=== PATIENT | male | born 1935 | race Caucasian/White ===

== ENCOUNTER 2016-09-27 08:35 | Outpatient (CLI) | payer MEDICARE | END 2016-09-27 08:36 | disposition home or self-care (01) | DX: D64.9 Anemia, unspecified (principal) ==

== ENCOUNTER 2016-12-31 10:35 | Outpatient (CLI) | payer MEDICARE ==
[2016-12-31 11:12] LABS: BASOPHILS # (AUTO) 0.1 10^3/uL (0.0-0.1); BASOPHILS % (AUTO) 1.2 %; EOSINOPHILS # (AUTO) 0.4 10^3/uL (0.0-0.7); EOSINOPHILS % (AUTO) 6.9 %; HCT - HEMATOCRIT 39.1 % (42.0-52.0); HGB - HEMOGLOBIN 13.2 g/dL (14.0-18.0); LYMPHOCYTES # (AUTO) 1.7 10^3/uL (1.5-3.5); LYMPHOCYTES % (AUTO) 25.7 %; MEAN CORPUSCULAR HEMOGLOBIN 30.2 pg (27.0-31.0); MEAN CORPUSCULAR HGB CONC 33.8 g/dL (32.0-36.0); MEAN CORPUSCULAR VOLUME 89.1 fL (80.0-94.0); MEAN PLATELET VOLUME 7.3 fL (7.4-11.4); MONOCYTES # (AUTO) 0.8 10^3/uL (0.0-1.0); MONOCYTES % (AUTO) 12.6 %; NEUTROPHILS # (AUTO) 3.4 10^3/uL (1.5-6.6); NEUTROPHILS % (AUTO) 53.6 %; RED BLOOD COUNT 4.39 10^6/uL (4.70-6.10); UNCORRECTED WHITE BLOOD COUNT 6.4 x10^3/uL; WHITE BLOOD COUNT 6.4 x10^3/uL (4.8-10.8)
[2016-12-31 11:50] LABS: ALBUMIN/GLOBULIN RATIO 1.3 (1.0-2.2); BILIRUBIN,TOTAL 0.8 mg/dL (0.2-1.0); BUN - BLOOD UREA NITROGEN 22 mg/dL (6-20); CALCIUM 9.8 mg/dL (8.5-10.3); CARBON DIOXIDE - CO2 27 mmol/L (21-32); CHLORIDE 101 mmol/L (101-111); CHOL/HDL RATIO 3.2 (<5.0); CHOLESTEROL 223 mg/dL; CREATININE 0.9 mg/dL (0.6-1.2); GFR - MDRD 81 (>89); GLUCOSE 115 mg/dL (70-100); HDL CHOLESTEROL 70 mg/dL; LDL/HDL RATIO 1.9 (<3.6); POTASSIUM 4.2 mmol/L (3.5-5.0); SODIUM 135 mmol/L (135-145); TRIGLYCERIDES 108 mg/dL; VLDL CHOLESTEROL 22 mg/dL
== END 2016-12-31 10:36 | disposition home or self-care (01) ==
LOC: LAB 10:35
PROVIDERS: ATTEND Internal Medicine
DX: J45.901 Unspecified asthma with (acute) exacerbation (principal)
CPT/HCPCS: 36415; 80053; 80061; 85025

== ENCOUNTER 2017-02-13 09:34 | Outpatient (CLI) | payer MEDICARE ==
[2017-02-13 09:58] LABS: IMMATURE RETIC FRACTION 0.32; RED BLOOD COUNT 4.58 10^6/uL (4.70-6.10)
[2017-02-13 10:10] LABS: HEMOGLOBIN A1C 0.61 g/dL
[2017-02-13 10:54] LABS: FERRITIN 120.2 ng/mL (23.9-336.2)
== END 2017-02-13 09:35 | disposition home or self-care (01) ==
LOC: LAB 09:34
PROVIDERS: ATTEND Internal Medicine
DX: R73.09 Other abnormal glucose (principal)
CPT/HCPCS: 36415; 82607; 82728; 83010; 83036; 85044; 86880

== ENCOUNTER 2017-07-04 14:46 | Outpatient (CLI) | payer MEDICARE ==
[2017-07-04 15:30] LABS: BASOPHILS # (AUTO) 0.1 10^3/uL (0.0-0.1); BASOPHILS % (AUTO) 1.5 %; EOSINOPHILS # (AUTO) 0.3 10^3/uL (0.0-0.7); EOSINOPHILS % (AUTO) 3.4 %; HCT - HEMATOCRIT 39.8 % (42.0-52.0); HGB - HEMOGLOBIN 13.5 g/dL (14.0-18.0); LYMPHOCYTES # (AUTO) 1.7 10^3/uL (1.5-3.5); LYMPHOCYTES % (AUTO) 22.3 %; MEAN CORPUSCULAR HEMOGLOBIN 30.3 pg (27.0-31.0); MEAN CORPUSCULAR HGB CONC 33.8 g/dL (32.0-36.0); MEAN CORPUSCULAR VOLUME 89.7 fL (80.0-94.0); MEAN PLATELET VOLUME 7.5 fL (7.4-11.4); MONOCYTES # (AUTO) 0.8 10^3/uL (0.0-1.0); NEUTROPHILS # (AUTO) 4.8 10^3/uL (1.5-6.6); NEUTROPHILS % (AUTO) 61.8 %; RED BLOOD COUNT 4.44 10^6/uL (4.70-6.10); RED CELL DISTRIBUTION WIDTH 13.2 % (12.0-15.0); UNCORRECTED WHITE BLOOD COUNT 7.7 x10^3/uL; WHITE BLOOD COUNT 7.7 x10^3/uL (4.8-10.8)
== END 2017-07-04 14:47 | disposition home or self-care (01) ==
LOC: LAB 14:46
PROVIDERS: ATTEND Internal Medicine
DX: I10 Essential (primary) hypertension (principal)
CPT/HCPCS: 36415; 85025

== ENCOUNTER 2018-01-21 08:00 | Outpatient (CLI) | payer MEDICARE ==
[2018-01-21 13:07] LABS: BASOPHILS # (AUTO) 0.1 10^3/uL (0.0-0.1); EOSINOPHILS # (AUTO) 0.4 10^3/uL (0.0-0.7); EOSINOPHILS % (AUTO) 5.9 %; HGB - HEMOGLOBIN 13.8 g/dL (14.0-18.0); LYMPHOCYTES % (AUTO) 28.5 %; MEAN CORPUSCULAR HGB CONC 33.1 g/dL (32.0-36.0); MEAN CORPUSCULAR VOLUME 90.7 fL (80.0-94.0); MEAN PLATELET VOLUME 7.6 fL (7.4-11.4); MONOCYTES # (AUTO) 0.9 10^3/uL (0.0-1.0); MONOCYTES % (AUTO) 13.4 %; NEUTROPHILS # (AUTO) 3.6 10^3/uL (1.5-6.6); NEUTROPHILS % (AUTO) 51.2 %; PLT - PLATELET COUNT 245 10^3/uL (130-450); RED CELL DISTRIBUTION WIDTH 13.1 % (12.0-15.0)
[2018-01-21 13:24] LABS: ALBUMIN 3.9 g/dL (3.2-5.5); ALBUMIN/GLOBULIN RATIO 1.1 (1.0-2.2); ALKALINE PHOSPHATASE 46 IU/L (42-121); ALT ALANINE AMINOTRANSFERASE 33 IU/L (10-60); AST ASPARTATE AMINOTRANSFERASE 36 IU/L (10-42); BILIRUBIN,TOTAL 0.7 mg/dL (0.2-1.0); BUN - BLOOD UREA NITROGEN 19 mg/dL (6-20); CALCIUM 9.6 mg/dL (8.5-10.3); CARBON DIOXIDE - CO2 25 mmol/L (21-32); CHLORIDE 97 mmol/L (101-111); CHOL/HDL RATIO 2.8 (<5.0); CHOLESTEROL 213 mg/dL; CREATININE 0.9 mg/dL (0.6-1.2); GFR - MDRD 81 (>89); GLUCOSE 118 mg/dL (70-100); HDL CHOLESTEROL 75 mg/dL; LDL CHOLESTEROL,CALCULATED 115 mg/dL; LDL/HDL RATIO 1.5 (<3.6); SODIUM 131 mmol/L (135-145); TOTAL PROTEIN 7.3 g/dL (6.7-8.2); VLDL CHOLESTEROL 23 mg/dL
[2018-01-21 13:55] LABS: HB2 TOTAL 15.6 g/dL; HEMOGLOBIN A1C 0.65 g/dL
== END 2018-01-21 08:01 | disposition home or self-care (01) ==
LOC: LAB.R 08:00
PROVIDERS: ATTEND Internal Medicine
DX: E88.81 Metabolic syndrome and other insulin resistance (principal); E78.5 Hyperlipidemia, unspecified; I10 Essential (primary) hypertension; Z79.899 Other long term (current) drug therapy
CPT/HCPCS: 80053; 80061; 83036; 83721; 84443; 85025

== ENCOUNTER 2018-01-21 08:37 | Outpatient (CLI) | payer MEDICARE | END 2018-01-21 08:38 | disposition home or self-care (01) | LOC: LAB 08:37 | PROVIDERS: ATTEND Internal Medicine | DX: Z53.9 Procedure and treatment not carried out, unspecified reason (principal) | CPT/HCPCS: 36415; 80053; 80061; 83036; 83721; 84443; 85025 ==

== ENCOUNTER 2018-02-15 11:12 | Outpatient (CLI) | payer MEDICARE | END 2018-02-15 11:13 | disposition critical access hospital (66) | LOC: EMS 11:12 | PROVIDERS: ATTEND Surgery | DX: R55 Syncope and collapse (principal) | CPT/HCPCS: A0425; A0427 ==

== ENCOUNTER 2018-02-15 11:19 | Emergency (ER) | payer MEDICARE ==
--- NOTE | 2018-02-15 11:24 | ED Physician Documentation ---
PD HPI SYNCOPE - Stated complaint Stated Complaint: LIGHTHEADED - Chief complaint Chief Complaint: Abd Pain - History obtained from History obtained from: Patient - History of Present Illness Witnessed: Witnessed Timing - onset: How many minutes ago (30) Duration: Minutes Preceding symptoms: Diaphoresis, Abdominal pain (he was at [facility], felt okay this morning. was eating snack after the service, and felt onset of some upper abd cramping/pain, felt nauseated, lgihtheaded, and then was pale and sweaty and nearly fainted. Sat downa nd recovered in a minute or so. Seemed okay enroute to ER. Feeling okay here except mild aching feeling in mid abd ("like a hunger pain").), Light headed, Generalized weakness. No: Headache, Palpitations , Dyspnea Associated symptoms: Nausea / vomiting, Abdominal pain. No: Headache, Chest pain, Palpitations, Dyspnea Contributing factors: Just stood up. 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 denies: Vomiting, Diarrhea : denies: Dysuria, Frequency Skin: denies: Rash, Lesions Musculoskeletal: denies: Neck pain, Back pain Neurologic: reports: Generalized weakness, Near syncope. denies: Focal weakness , Numbness, Syncope, Altered mental status, Headache, Head injury, LOC Endocrine: denies: Weight loss, Easy bruising / bleeding Immunocompromised: denies: Immunocompromised PD PAST MEDICAL HISTORY - Past Medical History Cardiovascular: None Respiratory: Asthma GI: GERD, GI bleed : Nocturia HEENT: None Musculoskeletal: Chronic back pain Derm: None - Past Surgical History General: Cholecystectomy, Appendectomy HEENT: Cataracts, Tonsil/Adenoidectomy - Present Medications Home Medications: Ambulatory Orders Medication Instructions Recorded Confirmed Albuterol Sulfate [Proair Hfa] 8.5 gm IH Q4H PRN 10/23/15 10/23/15 Fluticasone [Flonase] 1 applic PO DAILY 10/23/15 10/23/15 Fluticasone/Salmeterol [Advair 1 each IH BID 10/23/15 10/23/15 250-50 Diskus] Hydrochlorothiazide 25 mg PO DAILY 10/23/15 10/23/15 Losartan [Cozaar] 50 mg PO DAILY 10/23/15 10/23/15 - Allergies Allergies/Adverse Reactions: Allergies Allergy/AdvReac Type Severity Reaction Status Date / Time ciprofloxacin Allergy Unknown Verified 10/23/15 23:46 metronidazole [From Flagyl] Allergy Unknown Verified 02/15/18 11:23 - Social History Does the pt smoke?: No Smoking Status: Never smoker Does the pt drink ETOH?: No Does the pt have substance abuse?: No - Immunizations Immunizations are current?: Yes - POLST Patient has POLST: No PD ED PE NORMAL - Vitals Vital signs reviewed: Yes - General General: Alert and oriented X 3, No acute distress, Well developed/nourished - HEENT HEENT: Pharynx benign - Neck Neck: Supple, no meningeal sign, No adenopathy, No JVD - Cardiac Cardiac: RRR, No murmur - Respiratory Respiratory: Clear bilaterally - Abdomen Abdomen: Soft, Non distended, No organomegaly, Other (mild tenderness mid abd without guarding nor rebound. no hernia felt. ). No: Normal bowel sounds ( increased) - Male Male : Deferred - Rectal Rectal: Deferred - Back Back: No CVA TTP - Derm Derm: Normal color, Warm and dry - Extremities Extremities: No deformity, No tenderness to palpate, Normal ROM s pain, No edema , No calf tenderness / cord - Neuro Neuro: Alert and oriented X 3, stay cutter 2-12 intact, No motor deficit, No sensory deficit, Normal speech Eye Opening: Spontaneous Motor: Obeys Commands Verbal: Oriented GCS Score: 15 Results - Vitals Vitals: Vital Signs - 24 hr 02/15/18 02/15/18 02/15/18 11:20 13:27 13:54 Temperature 36.4 C L Heart Rate 55 L 46 L 56 L Respiratory 18 20 20 Rate Blood Pressure 161/84 H 185/77 H 190/87 H O2 Saturation 97 100 97 Oxygen O2 Source Room air - EKG (time done) 11:23 Rate: Rate (enter#) (50) Rhythm: Sinus bradycardia [place]: Normal Intervals: Normal MA QRS: Normal Ischemia: Normal ST segments. No: ST elevation c/w ischemia, ST depression Compare to prior EKG: Old EKG unavailable - Labs Labs: Laboratory Tests 02/15/18 02/15/18 02/15/18 11:36 11:36 11:36 WBC 6.5 RBC 4.31 L Hgb 13.0 L Hct 38.4 L MCV 89.1 MCH 30.1 MCHC 33.8 RDW 13.2 Plt Count 267 MPV 7.0 L Neut # (Auto) 3.5 Lymph # (Auto) 1.8 [place] # (Auto) 0.8 Eos # (Auto) 0.3 Baso # (Auto) 0.0 Absolute Nucleated RBC 0.00 Nucleated RBC % 0.0 Manual Slide Review Indicated RBC Morph Micro Appear 1+ ANISOCYTOSIS Sodium 131 L Potassium 3.8 Chloride 98 L Carbon Dioxide 24 Anion Gap 9.0 BUN 21 H Creatinine 0.9 Estimated GFR (MDRD) 81 L Glucose 140 H Calcium 9.2 Magnesium Total Bilirubin 0.8 AST 34 ALT 29 Alkaline Phosphatase 39 L Troponin I < 0.04 Total Protein 6.9 Albumin 3.7 Globulin 3.2 Albumin/Globulin Ratio 1.2 Lipase 24 02/15/18 11:36 WBC RBC Hgb Hct MCV MCH MCHC RDW Plt Count MPV Neut # (Auto) Lymph # (Auto) [place] # (Auto) Eos # (Auto) Baso # (Auto) Absolute Nucleated RBC Nucleated RBC % Manual Slide Review RBC Morph Micro Appear Sodium Potassium Chloride Carbon Dioxide Anion Gap BUN Creatinine Estimated GFR (MDRD) Glucose Calcium Magnesium 2.0 Total Bilirubin AST ALT Alkaline Phosphatase Troponin I Total Protein Albumin Globulin Albumin/Globulin Ratio Lipase - Rads (name of study) abd CT with contrast Radiology: Prelim report reviewed (no acute process seen. Diverticula without diverticulitis. ), EMP read contemporaneously (normal caliber aorta. No free fluid. ) PD MEDICAL DECISION MAKING - ED course Complexity details: reviewed results, re-evaluated patient (he is feeling well here in the ED. Abd discomfort resolved. Vitals are good. No lightheaded feeling. ), considered differential (seems postural syncope at [facility], with some abd nausea/cramping but not significant pain. However, concern for more occult process in abd, so did labs and abd CT. These are okay and he feels better. To watch for melena/blood in stools, fever, increased pain, etc. ), d/w patient - Sepsis Event Vital Signs: Vital Signs - 24 hr 02/15/18 02/15/18 02/15/18 11:20 13:27 13:54 Temperature 36.4 C L Heart Rate 55 L 46 L 56 L Respiratory 18 20 20 Rate Blood Pressure 161/84 H 185/77 H 190/87 H O2 Saturation 97 100 97 Oxygen O2 Source Room air Departure - Departure Disposition: 01 Home, Self Care Clinical Impression: Vasovagal near syncope, Abdominal discomfort Condition: Stable Record reviewed to determine appropriate education?: Yes Instructions: ED Near Syncope Vasovagal Follow-Up: Miguel Healy MD [Primary Care Provider] - Comments: Regular medications. Stay well-hydrated. There is no signs of a bad cause for your near fainting. I presume it is related to the stomach discomfort you had and an abnormal body response to that called vasovagal. Follow-up with your primary care this coming week. Return if recurrent episodes. Discharge Date/Time: 02/15/18 14:16
[2018-02-15 11:42] LABS: BASOPHILS % (AUTO) 0.7 %; EOSINOPHILS # (AUTO) 0.3 10^3/uL (0.0-0.7); EOSINOPHILS % (AUTO) 4.8 %; LYMPHOCYTES # (AUTO) 1.8 10^3/uL (1.5-3.5); LYMPHOCYTES % (AUTO) 27.8 %; MEAN CORPUSCULAR HEMOGLOBIN 30.1 pg (27.0-31.0); MEAN CORPUSCULAR HGB CONC 33.8 g/dL (32.0-36.0); MEAN CORPUSCULAR VOLUME 89.1 fL (80.0-94.0); MONOCYTES # (AUTO) 0.8 10^3/uL (0.0-1.0); NEUTROPHILS # (AUTO) 3.5 10^3/uL (1.5-6.6); NEUTROPHILS % (AUTO) 54.7 %; PLT - PLATELET COUNT 267 10^3/uL (130-450); RED BLOOD COUNT 4.31 10^6/uL (4.70-6.10); RED CELL DISTRIBUTION WIDTH 13.2 % (12.0-15.0); WHITE BLOOD COUNT 6.5 x10^3/uL (4.8-10.8)
[2018-02-15 11:54] LABS: ALBUMIN 3.7 g/dL (3.2-5.5); ALBUMIN/GLOBULIN RATIO 1.2 (1.0-2.2); BILIRUBIN,TOTAL 0.8 mg/dL (0.2-1.0); CALCIUM 9.2 mg/dL (8.5-10.3); CREATININE 0.9 mg/dL (0.6-1.2); TOTAL PROTEIN 6.9 g/dL (6.7-8.2)
[2018-02-15] MEDS ORDERED: SODIUM CHLORIDE 0.9% 500 ML IV ONE (12:05)
[2018-02-15] MEDS ORDERED: ACETAMINOPHEN 325 MG TABLET PO STA (12:06)
[2018-02-15] MEDS ORDERED: ONDANSETRON 4 MG/2 ML VIAL IVP STA (12:06)
[2018-02-15 12:14] LABS: RBC MORPHOLOGY (MULTIPLE) 1+ ANISOCYTOSIS (NORMAL)
[2018-02-15] MEDS ORDERED: IOPAMIDOL-300 100 ML VIAL ONE (12:44)
[2018-02-15] MEDS ORDERED: IOPAMIDOL-300 100 ML VIAL IVP ONE (12:47)
--- NOTE | 2018-02-15 13:44 | CT Report ---
Procedure Date: 02/15/2018 Accession Number: [id number] / [id number] Procedure: CT - Abdomen/Pelvis W/ CPT Code: FULL RESULT: EXAM: CT ABDOMEN AND PELVIS EXAM DATE: 02/15/2018 01:00 PM. CLINICAL HISTORY: Mid abdominal pain. COMPARISONS: 08/08/2012. TECHNIQUE: Routine helical CT imaging was performed through the abdomen and pelvis. IV contrast: 100 cc of Isovue-300. Enteric contrast: No. Reconstructions: Coronal and sagittal. In accordance with CT protocol optimization, one or more of the following dose reduction techniques were utilized for this exam: automated exposure control, adjustment of mA and/or KV based on patient size, or use of iterative reconstructive technique. FINDINGS: Lung Bases: Unremarkable. Liver: Normal. No masses. Gallbladder/Bile Ducts: Surgically absent. Spleen: Normal. Pancreas: Normal. Adrenal Glands: Normal. Kidneys: Normal. No masses or hydronephrosis. Peritoneal Cavity/Bowel: There is colonic diverticulosis without gross evidence of acute diverticulitis. No free fluid, free air or adenopathy. No masses or acute inflammatory process. Appendix is not conclusively identified. Pelvic Organs: Normal. The bladder and visualized pelvic organs are within normal limits. Vasculature: Calcified atherosclerotic changes seen. No evidence of aortic aneurysm. Bones: No significant abnormality. Other: None. IMPRESSION: 1. Colonic diverticulosis without evidence of acute diverticulitis. 2. Otherwise, unremarkable exam. RADIA
[2018-02-15 13:56] VITALS: BP 190/87
== END 2018-02-15 14:16 | disposition home or self-care (01) ==
LOC: ED 11:19
DX: R55 Syncope and collapse (principal); R10.9 Unspecified abdominal pain; R00.1 Bradycardia, unspecified; I45.81 Long QT syndrome
CPT/HCPCS: 36415; 74177; 80053; 83690; 83735; 84484; 85025; 93005; 96361; 96374; 96375; 99283; A9270; Q9967

== ENCOUNTER 2018-08-11 09:00 | Outpatient (CLI) | payer MEDICARE ==
[2018-08-11 15:38] LABS: CALCIUM 9.4 mg/dL (8.5-10.3)
[2018-08-11 15:40] LABS: HB2 TOTAL 14.8 g/dL; HEMOGLOBIN A1C 0.71 g/dL; HEMOGLOBIN A1C % 6.5 % (4.6-6.2)
== END 2018-08-11 23:59 | disposition home or self-care (01) ==
LOC: LAB.R 09:00
PROVIDERS: ATTEND Internal Medicine
DX: E88.81 Metabolic syndrome and other insulin resistance (principal); D64.9 Anemia, unspecified; I10 Essential (primary) hypertension
CPT/HCPCS: 80048; 83036

== ENCOUNTER 2018-12-31 12:00 | Emergency (ER) | payer MEDICARE ==
--- NOTE | 2018-12-31 12:47 | ED Physician Documentation ---
History of Present Illness - Stated complaint Stated Complaint: CHILLS/FEVER/STOMACHE PX - Chief complaint Chief Complaint: General - History obtained from History obtained from: Patient, Family - History of Present Illness Timing: Today - Additonal information Additional information: Is an 83-year-old man who presents with his complaints that he had chills and fever this morning. His temp was 100.2 at 745 this morning it did come down to 99.7 x 9 a a.m. and the gave him one Tylenol tablet at 10 AM. Patient said he was up his normal 2 or 3 times through the night urinating did not feel like he was having a dysuria and he saw no blood in it. At one point he felt a little nauseous so he went downstairs and made a little bit of warm milk. He never vomited and this morning just did not have much of an appetite just had a little piece of toast. He was wheezing a little bit this morning from his "seasonal" asthma and he used his albuterol inhaler that seemed to resolve the wheezing. He never felt short of breath and denies any coughing, sore throat or stuffy nose. The patient denies any pain anywhere. He has had no rash other than some frequent Bruising but denies being on any blood thinners. 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 He is status post appendectomy and cholecystectomy. Denies history of heart disease or diabetes. Review of Systems Constitutional: reports: Fever, Chills Eyes: reports: Reviewed and negative Ears: reports: Other (Wears hearing aids). denies: Ear pain Nose: denies: Rhinorrhea / runny nose Throat: denies: Sore throat Cardiac: denies: Chest pain / pressure, Palpitations Respiratory: reports: Wheezing. denies: Dyspnea, Cough GI: reports: Nausea. denies: Abdominal Pain, Vomiting, Diarrhea, Bloody / black stool : reports: Other (Nocturia). denies: Dysuria, Incontinent Skin: denies: Rash, Lesions Musculoskeletal: reports: Back pain (He had some right lower back pain just above the hip 3 days ago. He attributed this to walking in the parade. He has no hip joint pain.) Neurologic: reports: Generalized weakness PD PAST MEDICAL HISTORY - Past Medical History Past Medical History: Yes Cardiovascular: None Respiratory: Asthma Endocrine/Autoimmune: None GI: GERD, GI bleed : Nocturia HEENT: None Musculoskeletal: Chronic back pain Derm: None - Past Surgical History Past Surgical History: Yes General: Cholecystectomy, Appendectomy HEENT: Cataracts, Tonsil/Adenoidectomy - Present Medications Home Medications: Ambulatory Orders Medication Instructions Recorded Confirmed Albuterol Sulfate [Proair Hfa] 8.5 gm IH Q4H PRN 10/23/15 12/31/18 Losartan [Cozaar] 50 mg PO DAILY 10/23/15 12/31/18 RX: Hydrochlorothiazide 25 mg PO DAILY 10/23/15 12/31/18 Amox/Clav 875/125 [Augmentin] 1 each PO Q12H #20 tablet 12/31/18 Azithromycin [Zithromax] 250 mg PO DAILY #6 tablet 12/31/18 Cholecalciferol (Vitamin D3) 1 tab ORAL DAILY 12/31/18 12/31/18 [Vitamin D3] Magnesium Oxide [Magnesium] 1 cap ORAL DAILY 12/31/18 12/31/18 Mometasone/Formoterol [Dulera 200 1 inh INH BID 12/31/18 12/31/18 Mcg/5 Mcg Inhaler] RX: Azelastine HCl 2 sprays INH BID 12/31/18 12/31/18 RX: Pravastatin Sodium 1 tab ORAL DAILY 12/31/18 12/31/18 raNITIdine [Zantac] 1 tab ORAL DAILY 12/31/18 12/31/18 - Allergies Allergies/Adverse Reactions: Allergies Allergy/AdvReac Type Severity Reaction Status Date / Time ciprofloxacin Allergy Unknown Verified 12/31/18 12:08 metronidazole [From Flagyl] Allergy Unknown Verified 12/31/18 12:08 - Social History Does the pt smoke?: No Smoking Status: Never smoker Does the pt drink ETOH?: No Does the pt have substance abuse?: No - Immunizations Immunizations are current?: Yes - POLST Patient has POLST: No PD ED PE NORMAL - Vitals Vital signs reviewed: Yes - General General: Alert and oriented X 3, No acute distress, Well developed/nourished - HEENT HEENT: Atraumatic, PERRL, EOMI, Moist mucous membranes - Neck Neck: No adenopathy, No JVD, No bruit - Cardiac Cardiac: RRR, No murmur - Respiratory Respiratory: No respiratory distress, Other (There are some faint interstitial sounds over the right posterior apex) - Abdomen Abdomen: Normal bowel sounds, Soft, Non tender - Back Back: No CVA TTP - Extremities Extremities: Normal ROM s pain (No pain with movement of the right hip.), No edema - Neuro Neuro: Alert and oriented X 3, No motor deficit, No sensory deficit, Normal speech - Psych Psych: Normal mood, Normal affect Results - Vitals Vitals: Vital Signs - 24 hr 12/31/18 12/31/18 12/31/18 12:04 14:51 18:24 Temperature 36.1 C L 36.4 C L 36.7 C Heart Rate 85 56 L 56 L Respiratory 16 12 16 Rate Blood Pressure 123/59 L 146/62 H 149/69 H O2 Saturation 95 100 97 12/31/18 19:26 Temperature 36.7 C Heart Rate 59 L Respiratory 16 Rate Blood Pressure 152/71 H O2 Saturation 97 Oxygen O2 Source Room air - Labs Labs: Laboratory Tests 12/31/18 12/31/18 12/31/18 13:26 13:26 13:26 WBC 15.6 H RBC 4.17 L Hgb 12.6 L Hct 37.0 L MCV 88.8 MCH 30.1 MCHC 33.9 RDW 12.9 Plt Count 215 MPV 7.0 L Neut # (Auto) 12.7 H Lymph # (Auto) 1.2 L [place] # (Auto) 1.5 H Eos # (Auto) 0.0 Baso # (Auto) 0.2 H Absolute Nucleated RBC 0.00 Nucleated RBC % 0.0 Sodium 131 L Potassium 4.1 Chloride 95 L Carbon Dioxide 24 Anion Gap 12.0 BUN 22 H Creatinine 1.0 Estimated GFR (MDRD) 72 L Glucose 118 H Lactic Acid Calcium 9.1 Total Bilirubin 0.8 AST 32 ALT 29 Alkaline Phosphatase 46 Troponin I < 0.04 Total Protein 6.8 Albumin 3.8 Globulin 3.0 Albumin/Globulin Ratio 1.3 Lipase 19 L Urine Color Urine Clarity Urine pH Ur Specific [place] Urine Protein Urine Glucose (UA) Urine Ketones Urine Occult Blood Urine Nitrite Urine Bilirubin Urine Urobilinogen Ur Leukocyte Esterase Ur Microscopic Review Urine Culture Comments 12/31/18 12/31/18 13:26 14:24 WBC RBC Hgb Hct MCV MCH MCHC RDW Plt Count MPV Neut # (Auto) Lymph # (Auto) [place] # (Auto) Eos # (Auto) Baso # (Auto) Absolute Nucleated RBC Nucleated RBC % Sodium Potassium Chloride Carbon Dioxide Anion Gap BUN Creatinine Estimated GFR (MDRD) Glucose Lactic Acid 1.2 Calcium Total Bilirubin AST ALT Alkaline Phosphatase Troponin I Total Protein Albumin Globulin Albumin/Globulin Ratio Lipase Urine Color YELLOW Urine Clarity CLEAR Urine pH 8.0 H Ur Specific [place] 1.010 Urine Protein NEGATIVE Urine Glucose (UA) NEGATIVE Urine Ketones NEGATIVE Urine Occult Blood NEGATIVE Urine Nitrite NEGATIVE Urine Bilirubin NEGATIVE Urine Urobilinogen 0.2 (NORMAL) Ur Leukocyte Esterase NEGATIVE Ur Microscopic Review NOT INDICATED Urine Culture Comments NOT INDICATED PD MEDICAL DECISION MAKING - ED course Complexity details: re-evaluated patient, d/w patient, d/w family ED course: The patient's white blood cell count was elevated at 15,000. His chest x-ray was negative for pneumonia urinalysis was clear. He had a little bit of abdominal discomfort in the right side so it abdominal pelvis CT was obtained and this showed a right lower lobe infiltrate consistent with pneumonia. Patient was medicated with Rocephin and Zithromax IV. He was placed on Augmentin and Zithromax as an outpatient and the results of the labs and x-rays were discussed with him. He is to follow-up next week with his primary care provider return to the emergency department if worsening. Take it easy through the weekend. Departure - Departure Disposition: 01 Home, Self Care Clinical Impression: Pneumonia Qualifiers: Pneumonia type: due to unspecified organism Laterality: right Lung location: lower lobe of lung Qualified Code(s): J18.1 - Lobar pneumonia, unspecified organism Condition: Good Instructions: ED Pneumonia Adult Follow-Up: Kenneth Arceo MD [Primary Care Provider] - Prescriptions: Amox/Clav 875/125 [Augmentin] 1 each PO Q12H #20 tablet Azithromycin [Zithromax] 250 mg PO DAILY #6 tablet Comments: Fill both antibiotic prescriptions and start taking them tomorrow. I would recommend that you take probiotics while you are on the antibiotics and for 2 weeks after. Tylenol or ibuprofen can be used for any fever. Rest and drink plenty of water. Recheck with your doctor next week for reevaluation. The radiologist has recommended reimaging the chest based on the appearance of the CAT scan in about 3 months.Return to the emergency department if you have shortness of breath, you are vomiting and cannot keep anything down or high fevers that do not resolve with Tylenol or ibuprofen. Discharge Date/Time: 12/31/18 20:19
[2018-12-31 13:36] LABS: BASOPHILS # (AUTO) 0.2 10^3/uL (0.0-0.1); EOSINOPHILS % (AUTO) 0.3 %; HGB - HEMOGLOBIN 12.6 g/dL (14.0-18.0); LYMPHOCYTES # (AUTO) 1.2 10^3/uL (1.5-3.5); LYMPHOCYTES % (AUTO) 7.6 %; MEAN CORPUSCULAR HEMOGLOBIN 30.1 pg (27.0-31.0); MEAN CORPUSCULAR HGB CONC 33.9 g/dL (32.0-36.0); MEAN CORPUSCULAR VOLUME 88.8 fL (80.0-94.0); MONOCYTES # (AUTO) 1.5 10^3/uL (0.0-1.0); MONOCYTES % (AUTO) 9.7 %; NEUTROPHILS # (AUTO) 12.7 10^3/uL (1.5-6.6); NEUTROPHILS % (AUTO) 81.4 %; PLT - PLATELET COUNT 215 10^3/uL (130-450); RED BLOOD COUNT 4.17 10^6/uL (4.70-6.10); RED CELL DISTRIBUTION WIDTH 12.9 % (12.0-15.0); WHITE BLOOD COUNT 15.6 x10^3/uL (4.8-10.8)
[2018-12-31 13:54] LABS: ALBUMIN 3.8 g/dL (3.2-5.5); ALBUMIN/GLOBULIN RATIO 1.3 (1.0-2.2); BILIRUBIN,TOTAL 0.8 mg/dL (0.2-1.0); CALCIUM 9.1 mg/dL (8.5-10.3); TOTAL PROTEIN 6.8 g/dL (6.7-8.2)
--- NOTE | 2018-12-31 14:19 | XRAY Report ---
Reason: cough Procedure Date: 12/31/2018 Accession Number: [id number] / [id number] Procedure: XR - Chest 2 View X-Ray CPT Code: 86601 FULL RESULT: EXAM: CHEST RADIOGRAPHY EXAM DATE: 12/31/2018 01:18 PM. CLINICAL HISTORY: Cough. COMPARISON: XR CHEST PA AND LAT 11/20/2010 12:00 PM. TECHNIQUE: 2 views. FINDINGS: Lungs/Pleura: No focal opacities evident. No pleural effusion. No pneumothorax. Normal volumes. Mediastinum: Heart and mediastinal contours are unremarkable. Other: None. IMPRESSION: Normal 2-view chest radiography. RADIA
[2018-12-31 14:37] LABS: BILIRUBIN,URINE NEGATIVE (NEGATIVE); GLUCOSE, URINE (UA) NEGATIVE (NEGATIVE); KETONES,URINE (UA) NEGATIVE (NEGATIVE); LEUKOCYTE ESTERASE, URINE NEGATIVE (NEGATIVE); NITRITE,URINE NEGATIVE (NEGATIVE); OCCULT BLOOD,URINE NEGATIVE (NEGATIVE); PROTEIN,URINE NEGATIVE (NEGATIVE); UROBILINOGEN,URINE 0.2 (NORMAL) E.U./dL (NORMAL)
[2018-12-31 14:38] LABS: CLARITY,URINE CLEAR (CLEAR)
[2018-12-31] MEDS ORDERED: IOVERSOL 320 100 ML VIAL IVP ONE ×2 (15:57→16:19)
--- NOTE | 2018-12-31 17:11 | CT Report ---
Reason: abdominal pain; fever Procedure Date: 12/31/2018 Accession Number: [id number] / [id number] Procedure: CT - Abdomen/Pelvis W CPT Code: FULL RESULT: EXAM: CT ABDOMEN AND PELVIS EXAM DATE: 12/31/2018 04:15 PM. CLINICAL HISTORY: Abdominal pain. Fever. COMPARISONS: ABDOMEN/PELVIS W/ 02/15/2018 12:48 PM CHEST 2 VIEW 12/31/2018 1:18 PM. TECHNIQUE: Routine helical CT imaging was performed through the abdomen and pelvis. IV contrast: 100 cc of Optiray 320. Enteric contrast: No. Reconstructions: Coronal and sagittal. In accordance with CT protocol optimization, one or more of the following dose reduction techniques were utilized for this exam: automated exposure control, adjustment of mA and/or KV based on patient size, or use of iterative reconstructive technique. FINDINGS: Lung Bases: Posterior right lower lobe infiltrate with central masslike 2.5 cm density noted. Aortic and coronary artery calcification noted. Liver: Normal. No masses. Gallbladder/Bile Ducts: Nonvisualized gallbladder. No dilated ducts. Spleen: Normal. Pancreas: Normal. Adrenal Glands: Normal. Kidneys: Normal. No masses or hydronephrosis. Peritoneal Cavity/Bowel: Moderate stool retention. No free fluid, free air or adenopathy. No masses or acute inflammatory process. Nonvisualized appendix. Pelvic Organs: Normal. The bladder and visualized pelvic organs are within normal limits. Vasculature: No aortic aneurysm. Moderate atherosclerotic calcification. Bones: No significant abnormality. Other: None. IMPRESSION: 1. No acute abnormalities of the abdomen and pelvis. 2. Posterior right lower lobe infiltrate with central masslike 2.5 cm density. Consider follow-up in 3 months to document clearing. RADIA
[2018-12-31] MEDS ORDERED: AZITHROMYCIN INJ 500 MG in SODIUM CHLORIDE 0.9% 250 ML IV STA (17:53)
[2018-12-31] MEDS ORDERED: cefTRIAXone 1 GM in SODIUM CHLORIDE 0.9% MINIBAG 100 ML IV STA (17:53)
[2018-12-31 19:27] VITALS: BP 152/71
== END 2018-12-31 20:19 | disposition home or self-care (01) ==
LOC: ED 12:00
DX: J18.1 Lobar pneumonia, unspecified organism (principal); J45.909 Unspecified asthma, uncomplicated
CPT/HCPCS: 36415; 71046; 74177; 80053; 81003; 83605; 83690; 84484; 85025; 87040; 96365; 96375; 99283; 99284; Q9967; 81001; 87086

== ENCOUNTER 2019-01-02 03:28 | Outpatient (CLI) | payer MEDICARE | END 2019-01-02 03:29 | disposition EMS.NT | LOC: EMS 03:28 | PROVIDERS: ATTEND Surgery | DX: M54.9 Dorsalgia, unspecified (principal); W18.39XA Other fall on same level, initial encounter; Y92.009 Unspecified place in unspecified non-institutional (private) residence as the place of occurrence of the external cause ==

== ENCOUNTER 2019-03-30 14:17 | Outpatient (CLI) | payer MEDICARE ==
--- NOTE | 2019-03-31 10:20 | CT Report ---
Reason: ASPIRATION PNEUMONIA Procedure Date: 03/30/2019 Accession Number: [id number] / [id number] Procedure: CT - CHEST WO CPT Code: FULL RESULT: EXAM: CT CHEST EXAM DATE: 03/30/2019 02:30 PM. CLINICAL HISTORY: ASPIRATION PNEUMONIA. For follow-up COMPARISONS: CHEST 2 VIEW 12/31/2018 1:18 PM ABDOMEN/PELVIS W/ 12/31/2018 4:12 PM. TECHNIQUE: Routine helical CT imaging was performed through the chest. IV contrast: None. Reconstructions: Coronal and sagittal. In accordance with CT protocol optimization, one or more of the following dose reduction techniques were utilized for this exam: automated exposure control, adjustment of mA and/or KV based on patient size, or use of iterative reconstructive technique. FINDINGS: Lungs/Pleura: Calcified right lower lobe granuloma . No nodules, bronchial thickening, consolidation, or edema. Previously seen right lower lobe infiltrate has resolved. Pulmonary vasculature is normal. No pericardial or pleural effusion. No pneumothorax. Mediastinum: No pathologic adenopathy or masses. Small nonspecific mediastinal lymph nodes are present. The heart and great vessels are normal. Bones: Unremarkable. Included upper Abdomen: Unremarkable. Other: None. IMPRESSION: Previously seen right lower lobe airspace process has completely resolved. No acute or significant findings seen in the chest. RADIA
== END 2019-03-30 14:18 | disposition home or self-care (01) ==
LOC: DI 14:17
PROVIDERS: ATTEND Family Medicine
DX: J69.0 Pneumonitis due to inhalation of food and vomit (principal)
CPT/HCPCS: 71250

== ENCOUNTER 2019-06-10 07:57 | Outpatient (CLI) | payer MEDICARE ==
[2019-06-10 08:19] LABS: BASOPHILS # (AUTO) 0.1 10^3/uL (0.0-0.1); EOSINOPHILS # (AUTO) 0.3 10^3/uL (0.0-0.7); EOSINOPHILS % (AUTO) 4.2 %; HGB - HEMOGLOBIN 13.4 g/dL (14.0-18.0); LYMPHOCYTES # (AUTO) 1.7 10^3/uL (1.5-3.5); LYMPHOCYTES % (AUTO) 23.2 %; MEAN CORPUSCULAR HEMOGLOBIN 29.8 pg (27.0-31.0); MEAN CORPUSCULAR VOLUME 90.4 fL (80.0-94.0); MEAN PLATELET VOLUME 9.1 fL (7.4-11.4); MONOCYTES # (AUTO) 0.9 10^3/uL (0.0-1.0); MONOCYTES % (AUTO) 12.6 %; NEUTROPHILS # (AUTO) 4.3 10^3/uL (1.5-6.6); NEUTROPHILS % (AUTO) 58.6 %; PLT - PLATELET COUNT 253 10^3/uL (130-450); RED BLOOD COUNT 4.49 10^6/uL (4.70-6.10); RED CELL DISTRIBUTION WIDTH 12.9 % (12.0-15.0); WHITE BLOOD COUNT 7.3 x10^3/uL (4.8-10.8)
[2019-06-10 08:36] LABS: ALBUMIN/GLOBULIN RATIO 1.3 (1.0-2.2); ALKALINE PHOSPHATASE 58 IU/L (42-121); ALT ALANINE AMINOTRANSFERASE 28 IU/L (10-60); AST ASPARTATE AMINOTRANSFERASE 33 IU/L (10-42); BILIRUBIN,TOTAL 0.8 mg/dL (0.2-1.0); BUN - BLOOD UREA NITROGEN 29 mg/dL (6-20); CALCIUM 9.5 mg/dL (8.5-10.3); CARBON DIOXIDE - CO2 22 mmol/L (21-32); CHLORIDE 104 mmol/L (101-111); CHOLESTEROL 209 mg/dL; CREATININE 0.8 mg/dL (0.6-1.2); GFR - MDRD 92 (>89); GLUCOSE 115 mg/dL (70-100); HDL CHOLESTEROL 70 mg/dL; LDL CHOLESTEROL,CALCULATED 119 mg/dL; LDL/HDL RATIO 1.7 (<3.6); SODIUM 136 mmol/L (135-145); TOTAL PROTEIN 7.2 g/dL (6.7-8.2); VLDL CHOLESTEROL 20 mg/dL
[2019-06-10 09:14] LABS: THYROID STIMULATING HORMONE 4.77 uIU/mL (0.34-5.60)
[2019-06-10 09:16] LABS: FREE T4 (FREE THYROXINE) 0.68 ng/dL (0.58-1.64)
== END 2019-06-10 07:58 | disposition home or self-care (01) ==
LOC: LAB 07:57
PROVIDERS: ATTEND Family Medicine
DX: I10 Essential (primary) hypertension (principal); E78.5 Hyperlipidemia, unspecified
CPT/HCPCS: 36415; 80053; 80061; 83721; 84439; 84443; 84481; 85025

== ENCOUNTER 2020-06-09 10:22 | Outpatient (CLI) | payer MEDICARE ==
--- NOTE | 2020-06-09 16:51 | XRAY Report ---
PROCEDURE: Hips 2V BILAT INDICATIONS: LOW BACK PAIN CHRONIC, RT HIP PAIN TECHNIQUE: 2 views of the hip were acquired. COMPARISON: None FINDINGS: Bones: No fractures or dislocations. No suspicious bony lesions. The visualized pelvic ring appear s intact. Moderate bilateral narrowing of the hip joints bilaterally. Minimal periarticular osteophy marilee are present. Degenerative changes are present within the lower lumbar spine. Soft tissues: No suspicious soft tissue calcifications or masses. IMPRESSION: Moderate bilateral hip osteoarthritis. Reviewed by: Eileen Rodriguez MD on 06/09/2020 4:50 PM PST Approved by: Eileen Rodriguez MD on 06/09/2020 4:50 PM PST Station ID: [id number]
--- NOTE | 2020-06-09 16:58 | XRAY Report ---
PROCEDURE: Lumbar Spine 2 View INDICATIONS: LOW BACK PAIN CHRONIC, RT HIP PAIN TECHNIQUE: 2 views of the lumbar spine were acquired. COMPARISON: CT abdomen/pelvis 12/31/2018 FINDINGS: Bones: 5 [id number] vertebrae are present. There is mild grade 1 anterolisthesis of L4 on L5 se condary to facet hypertrophy. No vertebral body compression fractures. No suspicious bony lesions. M inimal degenerative endplate changes are seen throughout the lumbar spine. Facet hypertrophy is seen at L3-4 through L5-S1. Soft tissues: Overlying bowel gas pattern is normal. No suspicious soft tissue calcifications. Ath erosclerotic calcifications are seen in the aorta. IMPRESSION: No acute osseous abnormality. Multilevel spondylolysis. Mild grade 1 anterolisthesis of L4 on L5. Reviewed by: Jayson aFulkner MD on 06/09/2020 4:57 PM PST Approved by: Jayson Faulkner MD on 06/09/2020 4:57 PM PST Station ID: [id number]
== END 2020-06-09 10:23 | disposition home or self-care (01) ==
LOC: DI 10:22
PROVIDERS: ATTEND Family Medicine
DX: M47.816 Spondylosis without myelopathy or radiculopathy, lumbar region (principal); M47.817 Spondylosis without myelopathy or radiculopathy, lumbosacral region; M43.16 Spondylolisthesis, lumbar region; M17.0 Bilateral primary osteoarthritis of knee
CPT/HCPCS: 72100; 73521

== ENCOUNTER 2020-07-07 08:50 | Outpatient (CLI) | payer MEDICARE ==
[2020-07-07 09:07] LABS: BASOPHILS # (AUTO) 0.1 10^3/uL (0.0-0.1); EOSINOPHILS # (AUTO) 0.5 10^3/uL (0.0-0.7); EOSINOPHILS % (AUTO) 7.6 %; HGB - HEMOGLOBIN 13.3 g/dL (14.0-18.0); LYMPHOCYTES # (AUTO) 2.1 10^3/uL (1.5-3.5); LYMPHOCYTES % (AUTO) 33.2 %; MEAN CORPUSCULAR HEMOGLOBIN 29.7 pg (27.0-31.0); MEAN CORPUSCULAR HGB CONC 32.1 g/dL (32.0-36.0); MEAN CORPUSCULAR VOLUME 92.4 fL (80.0-94.0); MEAN PLATELET VOLUME 8.8 fL (7.4-11.4); MONOCYTES # (AUTO) 0.7 10^3/uL (0.0-1.0); MONOCYTES % (AUTO) 11.3 %; NEUTROPHILS % (AUTO) 46.7 %; PLT - PLATELET COUNT 217 10^3/uL (130-450); RED BLOOD COUNT 4.48 10^6/uL (4.70-6.10); RED CELL DISTRIBUTION WIDTH 12.7 % (12.0-15.0); WHITE BLOOD COUNT 6.3 x10^3/uL (4.8-10.8)
[2020-07-07 09:33] LABS: ALBUMIN 4.1 g/dL (3.2-5.5); ALBUMIN/GLOBULIN RATIO 1.4 (1.0-2.2); ALKALINE PHOSPHATASE 42 IU/L (42-121); ALT ALANINE AMINOTRANSFERASE 28 IU/L (10-60); AST ASPARTATE AMINOTRANSFERASE 30 IU/L (10-42); BILIRUBIN,TOTAL 0.8 mg/dL (0.2-1.0); BUN - BLOOD UREA NITROGEN 31 mg/dL (6-20); CALCIUM 9.5 mg/dL (8.5-10.3); CARBON DIOXIDE - CO2 27 mmol/L (21-32); CHLORIDE 98 mmol/L (101-111); CHOL/HDL RATIO 3.2 (<5.0); CHOLESTEROL 237 mg/dL; GLUCOSE 103 mg/dL (70-100); HDL CHOLESTEROL 73 mg/dL; LDL CHOLESTEROL,CALCULATED 142 mg/dL; LDL/HDL RATIO 1.9 (<3.6); SODIUM 136 mmol/L (135-145); TOTAL PROTEIN 7.1 g/dL (6.7-8.2); VLDL CHOLESTEROL 22 mg/dL
== END 2020-07-07 08:51 | disposition home or self-care (01) ==
LOC: LAB 08:50
PROVIDERS: ATTEND Family Medicine
DX: E78.5 Hyperlipidemia, unspecified (principal); I10 Essential (primary) hypertension; J45.909 Unspecified asthma, uncomplicated
CPT/HCPCS: 36415; 80053; 80061; 83721; 84443; 85025

== ENCOUNTER 2020-07-18 07:47 | Outpatient (CLI) | payer MEDICARE | END 2020-07-18 07:48 | disposition critical access hospital (66) | LOC: EMS 07:47 | PROVIDERS: ATTEND Surgery | DX: R55 Syncope and collapse (principal); R11.0 Nausea; M54.5 Low back pain | CPT/HCPCS: A0425; A0427 ==

== ENCOUNTER 2020-07-18 07:55 | Observation (INO) | payer MEDICARE ==
[2020-07-18] MEDS ORDERED: LACTATED RINGERS 500 ML IV ONE (08:36)
[2020-07-18] MEDS ORDERED: IOVERSOL 320 100 ML VIAL IVP ONE ×3 (08:49→17:05)
[2020-07-18 08:56] LABS: BASOPHILS % (AUTO) 0.3 %; EOSINOPHILS # (AUTO) 0.1 10^3/uL (0.0-0.7); EOSINOPHILS % (AUTO) 0.9 %; HGB - HEMOGLOBIN 13.4 g/dL (14.0-18.0); LYMPHOCYTES # (AUTO) 0.7 10^3/uL (1.5-3.5); LYMPHOCYTES % (AUTO) 6.9 %; MEAN CORPUSCULAR HEMOGLOBIN 30.5 pg (27.0-31.0); MEAN CORPUSCULAR HGB CONC 34.5 g/dL (32.0-36.0); MEAN CORPUSCULAR VOLUME 88.4 fL (80.0-94.0); MEAN PLATELET VOLUME 8.7 fL (7.4-11.4); MONOCYTES # (AUTO) 1.3 10^3/uL (0.0-1.0); MONOCYTES % (AUTO) 12.9 %; NEUTROPHILS # (AUTO) 7.9 10^3/uL (1.5-6.6); NEUTROPHILS % (AUTO) 78.4 %; PLT - PLATELET COUNT 199 10^3/uL (130-450); RED BLOOD COUNT 4.39 10^6/uL (4.70-6.10); RED CELL DISTRIBUTION WIDTH 12.3 % (12.0-15.0); WHITE BLOOD COUNT 10.1 x10^3/uL (4.8-10.8)
--- NOTE | 2020-07-18 08:58 | ED Physician Documentation ---
History of Present Illness - Stated complaint Stated Complaint: SYNCOPE - Chief complaint Chief Complaint: Neuro - History obtained from History obtained from: Patient - Additonal information Additional information: 85-year-old man with PMH htn, hld, recent dental infection on day 5 antibiotics prescribed by dentist Dr. Perkins p/w Syncopal episode when getting off the toilet this morning with possible head trauma to right side of face. Patient endorses decreased oral intake over the past couple days related to his infection. Denies fevers. Does not know the name of his antibiotic. States that his swelling has improved. No cardiac history. Denies pain anywhere except in lower back (chronic). Tetanus up-to-date. Review of Systems Ten Systems: 10 systems reviewed and negative Constitutional: denies: Fever, Chills Throat: reports: Dental pain / toothache Cardiac: denies: Chest pain / pressure, Palpitations Respiratory: denies: Dyspnea, Cough PD PAST MEDICAL HISTORY - Past Medical History Past Medical History: Yes Cardiovascular: Hypertension, High cholesterol Respiratory: Asthma Neuro: None Endocrine/Autoimmune: None GI: GERD, GI bleed : Nocturia HEENT: None Psych: None Musculoskeletal: Chronic back pain Derm: None - Past Surgical History Past Surgical History: Yes General: Cholecystectomy, Appendectomy HEENT: Cataracts, Tonsil/Adenoidectomy Derm: Skin cancer surgery - Present Medications Home Medications: Ambulatory Orders Medication Instructions Recorded Confirmed Albuterol Sulfate [Proair Hfa] 8.5 gm IH Q4H PRN 10/23/15 07/18/20 Hydrochlorothiazide 25 mg PO DAILY 10/23/15 07/18/20 Losartan [Cozaar] 50 mg PO DAILY 10/23/15 07/18/20 Azelastine HCl 2 sprays INH BID 12/31/18 07/18/20 Cholecalciferol (Vitamin D3) 1 tab ORAL DAILY 12/31/18 07/18/20 [Vitamin D3] Magnesium Oxide [Magnesium] 1 cap ORAL DAILY 12/31/18 07/18/20 Mometasone/Formoterol [Dulera 200 1 inh INH BID 12/31/18 07/18/20 Mcg/5 Mcg Inhaler] Pravastatin Sodium 1 tab ORAL DAILY 12/31/18 07/18/20 Amox/Clav 500/125 [Augmentin] 1 each PO Q6HR 07/18/20 07/18/20 Multivit-Min/FA/Lycopen/Lutein 1 each PO DAILY 07/18/20 07/18/20 [Centrum Silver Men Tablet] metroNIDAZOLE [Flagyl] 500 mg PO Q6HR 07/18/20 07/18/20 - Allergies Allergies/Adverse Reactions: Allergies Allergy/AdvReac Type Severity Reaction Status Date / Time ciprofloxacin Allergy Unknown Verified 07/18/20 08:09 metronidazole [From Flagyl] Allergy Unknown Verified 07/18/20 08:09 - Social History Does the pt smoke?: No Smoking Status: Never smoker Does the pt drink ETOH?: No Does the pt have substance abuse?: No - Immunizations Immunizations are current?: Yes - POLST Patient has POLST: No PD ED PE NORMAL - Vitals Vital signs reviewed: Yes - General General: Alert and oriented X 3 - HEENT HEENT: Atraumatic, PERRL, EOMI, Moist mucous membranes, Pharynx benign, Dentition benign, Other (mild soft tissue swelling to hard/soft palate on right.) - Neck Neck: No bony TTP - Cardiac Cardiac: RRR - Respiratory Respiratory: No respiratory distress, Clear bilaterally - Abdomen Abdomen: Non tender, Non distended - Male Male : Deferred - Rectal Rectal: Deferred - Back Back: No spinal TTP - Derm Derm: Normal color, Warm and dry, Other (multiple abrasions R upper face. R ear with chronic appearing lesion. R zygomatic arch erythema) - Extremities Extremities: No deformity, No tenderness to palpate, Normal ROM s pain, Other (1+ edema LLE. 2+ edema RLE . patient states this is chronic and ongoing for years. no calf ttp) - Neuro Neuro: Alert and oriented X 3 - Psych Psych: Normal mood, Normal affect Results - Vitals Vitals: Vital Signs - 24 hr 07/18/20 07/18/20 07/18/20 08:09 08:23 10:13 Temperature 36.4 C L Heart Rate 55 L 56 L 72 Respiratory 14 14 15 Rate Blood Pressure 166/80 H 182/83 H 210/85 H O2 Saturation 96 98 97 07/18/20 12:24 Temperature Heart Rate 64 Respiratory 16 Rate Blood Pressure 181/90 H O2 Saturation 96 Oxygen O2 Source Room air - EKG (time done) 0841 Rate: Rate (enter#) (57) Rhythm: NSR Intervals: RBBB - Labs Labs: Laboratory Tests 07/18/20 07/18/20 07/18/20 08:45 08:45 08:45 WBC 10.1 RBC 4.39 L Hgb 13.4 L Hct 38.8 L MCV 88.4 MCH 30.5 MCHC 34.5 RDW 12.3 Plt Count 199 MPV 8.7 Neut # (Auto) 7.9 H Lymph # (Auto) 0.7 L [place] # (Auto) 1.3 H Eos # (Auto) 0.1 Baso # (Auto) 0.0 Absolute Nucleated RBC 0.00 Nucleated RBC % 0.0 D-Dimer Sodium 124 L Potassium 4.1 Chloride 90 L Carbon Dioxide 23 Anion Gap 11.0 BUN 25 H Creatinine 0.8 Estimated GFR (MDRD) 92 Glucose 132 H Calcium 9.1 Total Bilirubin 0.7 AST 40 ALT 35 Alkaline Phosphatase 56 Troponin I High Sens 8.7 Total Protein 7.2 Albumin 3.8 Globulin 3.4 Albumin/Globulin Ratio 1.1 Lipase 22 07/18/20 08:45 WBC RBC Hgb Hct MCV MCH MCHC RDW Plt Count MPV Neut # (Auto) Lymph # (Auto) [place] # (Auto) Eos # (Auto) Baso # (Auto) Absolute Nucleated RBC Nucleated RBC % D-Dimer > 1050.0 H Sodium Potassium Chloride Carbon Dioxide Anion Gap BUN Creatinine Estimated GFR (MDRD) Glucose Calcium Total Bilirubin AST ALT Alkaline Phosphatase Troponin I High Sens Total Protein Albumin Globulin Albumin/Globulin Ratio Lipase PD MEDICAL DECISION MAKING - ED course ED course: 85-year-old man presents status post syncopal episode. Will obtain labs, CT to evaluate. CT nonfocal. labwork with hyponatremia. will admit to obs. Departure - Departure Disposition: ED Place in Observation Clinical Impression: Syncope, Hyponatremia Condition: Stable
--- NOTE | 2020-07-18 09:08 | XRAY Report ---
PROCEDURE: Chest 1 View X-Ray INDICATIONS: Chest Pain TECHNIQUE: One view of the chest was acquired. COMPARISON: CT chest 03/30/2019. CXR 10/31/2018. FINDINGS: Surgical changes and devices: None. Lungs and pleura: No pleural effusions or pneumothorax. Lungs are clear. Mediastinum: Mediastinal contours appear normal. Heart size is normal. Bones and chest wall: No suspicious bony lesions. Overlying soft tissues appear unremarkable. IMPRESSION: No acute cardiopulmonary abnormality. Reviewed by: Delfino Arellano MD on 07/18/2020 8:07 AM [facility] Approved by: Delfino Arellano MD on 07/18/2020 8:07 AM [facility] Station ID: [id number]
[2020-07-18 09:12] LABS: ALBUMIN 3.8 g/dL (3.2-5.5); ALBUMIN/GLOBULIN RATIO 1.1 (1.0-2.2); BILIRUBIN,TOTAL 0.7 mg/dL (0.2-1.0); CALCIUM 9.1 mg/dL (8.5-10.3); CREATININE 0.8 mg/dL (0.6-1.2); TOTAL PROTEIN 7.2 g/dL (6.7-8.2)
[2020-07-18] MEDS ORDERED: ACETAMINOPHEN 325 MG TABLET PO STA (10:18)
[2020-07-18] MEDS ORDERED: ONDANSETRON 4 MG/2 ML VIAL IVP STA (10:19)
[2020-07-18] MEDS ORDERED: LOSARTAN 50 MG TABLET PO STA (10:24)
--- NOTE | 2020-07-18 10:30 | CT Report ---
PROCEDURE: MAXILLOFACIAL W INDICATIONS: syncope and collapse, dental infection R maxillary CONTRAST: IV CONTRAST: Optiray 320 ml: 90 PO CONTRAST: *NO PO CONTRAST TECHNIQUE: After the administration of intravenous contrast, 3.0 mm axial sections acquired from the mid-neck to the frontal sinuses, with coronal reformatting. For radiation dose reduction, the following was use d: automated exposure control, adjustment of mA and/or kV according to patient size. COMPARISON: None. FINDINGS: Image quality: Excellent. Soft tissues: No edema, masses, or fluid collections. Extensive metal artifact from dental work pre cludes clear visualization of significant portions of the maxilla and mandible. No enlarged lymph nod es. Vascular: Visualized vascular structures appear patent throughout. Bony vascular foramina and canal s appear normal. Bones: Facial bones appear intact, without fractures, erosions, or destruction. Visualized portions of the skull base and auditory canals also appear normal except for presence of a mass lesion involv ing the sella turcica measuring up to 1.5 x 1.6 cm consistent with a pituitary macroadenoma. Sinuses: Paranasal sinuses are aerated without fluid levels, mucosal thickening, or mucoceles. Mast oid air cells are aerated. IMPRESSION: Accurate assessment of the dental region is not possible due to extensive dental work and metal artif act related to the dental procedures from the past. Panorex dental plain films may be warranted for m ore accurate assessment of periodontal disease. There is a mass at the pituitary fossa measuring up to 1.5 x 1.6 cm consistent with a pituitary macro adenoma enlarging the sella. Depending on the clinical status follow-up by neurosurgical consultation and MR scanning for more accurate assessment may be warranted. Reviewed by: Fady Callaway MD on 07/18/2020 10:29 AM PST Approved by: Fady Callaway MD on 07/18/2020 10:29 AM PST Station ID: [id number]
--- NOTE | 2020-07-18 11:09 | CT Report ---
PROCEDURE: ANGIO CHEST W/WO INDICATIONS: R/O pe CONTRAST: IV CONTRAST: Optiray 320 ml: 80 PO CONTRAST: *NO PO CONTRAST TECHNIQUE: After the administration of intravenous contrast, 2 mm thick sections acquired from the pulmonary api coleen to the posterior costophrenic angles. 3-dimensional maximum intensity projection (MIP) coronal a nd sagittal reformats were then acquired through the thorax. For radiation dose reduction, the follow ing was used: automated exposure control, adjustment of mA and/or kV according to patient size. COMPARISON: FINDINGS: Image quality: Excellent. Pulmonary arteries: Pulmonary arteries are normal in size, and demonstrate no intraluminal filling d efects to suggest central pulmonary embolism. Lungs and pleura: Lungs are mildly abnormal with what appears to be mild basilar atelectasis posteri martha in each lung base, associated with reduced inspiratory volume and asymmetric right greater than left elevation of the diaphragms.. No pleural effusions or pneumothorax. Central and peripheral air ways are patent. Mediastinum: Heart size is normal, without pericardial effusion. No mediastinal or hilar adenopathy . Thoracic aorta is normal in caliber and enhancement. Esophagus is normal in caliber, without hiat al hernia. Bones and chest wall: No suspicious bony lesions. Ribs and thoracic spine appear intact throughout. The thyroid is normal. No axillary or supraclavicular adenopathy. Abdomen: Visualized upper abdominal solid organs appear normal in the early arterial phase of enhanc ement. IMPRESSION: A pulmonary embolus is not seen. Reduced inspiratory volume, asymmetric right greater than left diaph ragm elevation. Bibasilar posterior atelectasis, mild in severity. Reviewed by: Fady Callaway MD on 07/18/2020 11:07 AM [facility] Approved by: Fady Callaway MD on 07/18/2020 11:07 AM PST Station ID: [id number]
--- NOTE | 2020-07-18 11:58 | CT Report ---
PROCEDURE: HEAD WO INDICATIONS: syncope and collapse TECHNIQUE: Noncontrast 4.5 mm thick angled axial sections acquired from the foramen magnum to the vertex. For r adiation dose reduction, the following was used: automated exposure control, adjustment of mA and/or kV according to patient size. COMPARISON: None. FINDINGS: Image quality: Excellent. The ventricular system and cortical sulci demonstrate atrophy, consistent for patient's stated age. There are areas of hypodensity in the periventricular and subcortical white matter. There is no acut e intra or extra-axial fluid collection. No acute hemorrhage, mass lesion or midline shift. Brainst em is unremarkable. Globes are symmetrical. Sinuses demonstrate minimal pansinus mucosal thickening. Osseous structures a re intact. IMPRESSION: 1. No acute intracranial process. 2. Moderate atrophy and chronic microvascular ischemic changes. Reviewed by: Eileen Rodriguez MD on 07/18/2020 11:57 AM [facility] [place] Approved by: Eileen Rodriguez MD on 07/18/2020 11:57 AM [facility] [place] Station ID: [id number]
[2020-07-18] MEDS ORDERED: LACTATED RINGERS 1,000 ML IV STA (12:18)
[2020-07-18] MEDS ORDERED: ONDANSETRON 4 MG/2 ML VIAL IVP PRN (12:46)
[2020-07-18] MEDS ORDERED: ACETAMINOPHEN 325 MG TABLET PO PRN (12:46)
[2020-07-18] MEDS ORDERED: SODIUM CHLORIDE FLUSH 0.9% 10 ML SYRINGE IVP PRN (12:46)
[2020-07-18] MEDS ORDERED: ALBUTEROL NEB 2.5 MG/3 ML INH PRN (12:52)
[2020-07-18] MEDS ORDERED: hydrALAZINE INJ 20 MG/ML VIAL IVP PRN (12:55)
--- NOTE | 2020-07-18 12:58 | HISTORY & PHYSICAL EXAMINATION ---
Chief Complaint - Chief Complaint Chief Complaint: syncope History of Present Illness - Admitted From Admitted From:: ER - History Obtained From Records Reviewed: [facility] History obtained from: pt Exam Limitations: no - History of Present Illness HPI Comment/Other: This is a 85-year-old man with a PMH significant for htn, hld, asthma, GI bleed, GERD, chronic back pain who had recent dental infection and was prescribed ant ibiotic on Friday by dentist Dr. Perkins, who present ER complain of Syncopal episode.Patient reported he had a stomach upset with nausea and vomiting on last night. when he got off the toilet this morning he fall in the floor. He believed he lost his Consciousness and with right side of face pain. He think his face hit the floor when he fall. 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 Patient report he decreased oral intake over the past couple days related to his dental infection and nausea and vomiting. He Denies chest pain, fevers, chill, shortness of breath, nausea, vomiting or abdominal pain now. Pt denies headache, vision change. CT of the head is unremarkable, CT of face show there is a pituitary fossa measuring up to 1.5x1.6 cm consistent with a pituitary macroadenoma enlarging the sella. CTA of the chest show unremarkable for PE with Reduced inspiratory volume. Troponin is negative, EKG show sinus rhythm with prolonged KS interval. Patient's sodium 124. Discussed the care goal with the patient, patient requests full code. History - Past Medical History Cardiovascular: reports: Hypertension, High cholesterol Respiratory: reports: Asthma Neuro: reports: None Endocrine/Autoimmune: reports: None GI: reports: GERD, GI bleed : reports: Nocturia HEENT: reports: None Psych: reports: None Musculoskeletal: reports: Chronic back pain Derm: reports: None MRSA Hx?: No - Past Surgical History General: reports: Cholecystectomy, Appendectomy HEENT: reports: Cataracts, Tonsil/Adenoidectomy Derm: reports: Skin cancer surgery - Family & Social History Family History: Mother: , Father: Family History Comment/Other: Patient reported his father at the age of 72 with surgical complication. his mother at age 90 with aging complication with unknown exact cause. Social History Notes: Patient denies history of smoke, alcohol or drug use. He reported he lives at [facility] with his , he has 3 children - POLST Patient has POLST: No Meds/Allgy - Home Medications Home Medications: Ambulatory Orders Medication Instructions Recorded Confirmed Albuterol Sulfate [Proair Hfa] 8.5 gm IH Q4H PRN 10/23/15 07/18/20 Hydrochlorothiazide 25 mg PO DAILY 10/23/15 07/18/20 Losartan [Cozaar] 50 mg PO DAILY 10/23/15 07/18/20 Azelastine HCl 2 sprays INH BID 12/31/18 07/18/20 Cholecalciferol (Vitamin D3) 1 tab ORAL DAILY 12/31/18 07/18/20 [Vitamin D3] Magnesium Oxide [Magnesium] 1 cap ORAL DAILY 12/31/18 07/18/20 Mometasone/Formoterol [Dulera 200 1 inh INH BID 12/31/18 07/18/20 Mcg/5 Mcg Inhaler] Pravastatin Sodium 1 tab ORAL DAILY 12/31/18 07/18/20 Amox/Clav 500/125 [Augmentin] 1 each PO Q6HR 07/18/20 07/18/20 Multivit-Min/FA/Lycopen/Lutein 1 each PO DAILY 07/18/20 07/18/20 [Centrum Silver Men Tablet] metroNIDAZOLE [Flagyl] 500 mg PO Q6HR 07/18/20 07/18/20 - Allergies Allergies/Adverse Reactions: Allergies Allergy/AdvReac Type Severity Reaction Status Date / Time ciprofloxacin Allergy Unknown Verified 07/18/20 08:09 metronidazole [From Flagyl] Allergy Unknown Verified 07/18/20 08:09 Review of Systems - Constitutional Constitutional: denies: Fever, Chills, Weakness, Poor appetite, Diaphoresis, Night sweats - Eyes Eyes: denies: Pain, Blurred vision, Field loss, Vision loss, Dipolpia - Ears, Nose & Throat Ears, Nose & Throat: denies: Ear pain, Vertigo, Nosebleeds, Mouth lesions, Bleeding gums - Cardiovascular Cariovascular: reports: Syncope. denies: Irregular heart rate, Palpitations, Chest pain, Edema, Lightheadedness, Exertional dyspnea, Decr. exercise tolerance - Respiratory Respiratory: denies: Cough, Sputum production, Wheezing, Hemoptysis, Orthopnea, SOB at rest - Gastrointestinal Gastrointestinal: denies: Abdominal pain, Constipation, Diarrhea, Rectal bleeding, Black stools, Bloody stools, Nausea, Vomiting - Genitourinary Genitourinary: denies: Dysuria, Urgency, Incontinence - Musculoskeletal Musculoskeletal: denies: Muscle pain, Muscle aches, Limited range of motion - Integumentary Integumentary: denies: Rash, Lumps - Neurological Neurological: denies: General weakness, Focal weakness, Headache, Dizziness, Numbness, Pre-existing deficit, Abnormal gait, Seizures, Incoordination, Slurred speech - Psychiatric Psychiatric: denies: Depression, Suicidal, Delusions - Endocrine Endocrine: denies: Polyuria, Polydypsia - Hematologic/Lymphatic Hematologic/Lymphatic: denies: Anemia, Blood clots Exam - Vital Signs Vital Signs: Vital Signs x48h Temp Pulse Resp BP Pulse Ox 07/18/20 12:24 64 16 181/90 H 96 07/18/20 10:13 72 15 210/85 H 97 07/18/20 08:23 56 L 14 182/83 H 98 07/18/20 08:09 36.4 C L 55 L 14 166/80 H 96 - Physical Exam General Appearance: positive: No acute distress, Alert. negative: Lethargic Eyes Bilateral: positive: Normal inspection, PERRL, No lid inflammation ENT: positive: ENT inspection nml. negative: Purulent nasal drainage, Oral lesions Neck: positive: Nml inspection, Thyroid nml, Trachea midline. negative: Thyromegaly, Tracheal deviation Respiratory: positive: Chest non-tender, No respiratory distress, Breath sounds nml. negative: Wheezes, Rales, Rhonchi Cardiovascular: positive: Regular rate & rhythm, Diastolic murmur. negative: No murmur, Tachycardia, Bradycardia Peripheral Pulses: positive: 2+ Abdomen: positive: Non-tender, Nml bowel sounds, No distention. negative: Tenderness, Guarding, Rebound Back: positive: Nml inspection. negative: CVA tenderness (R), CVA tenderness (L) Skin: positive: Color nml, Warm, Dry, Other (top of right ear skin with black sc ar tissue). negative: Cyanosis, Diaphoresis, Pallor Extremities: positive: Non-tender, Nml appearance. negative: Calf tenderness Neurologic/Psychiatric: positive: Oriented x3, Motor nml, Sensation nml, Mood/affect nml. negative: Weakness, Sensory loss, Facial droop, Slurred/abnml speech, Depressed mood/affect Conclusion/Plan - Problem List (1) Syncope Conclusion/Plan: Patient reported he lost consciousness and complains of syncope. Troponin and the EKG are unremarkable. Patient denies chest pain, fever, shortness breath. Patient reported he reduced oral intake because of his dental infection and pain, and he report he has nausea and vomiting, And slightly increased BUN. We will check echo, intravenous IV fluids for patient dehydration, we will get orthostatic hypotension check, Continue telemetry and vital signs and supervisor laboratory animal facility. (2) Hyponatremia Conclusion/Plan: Patient has a chronic hyponatremia, today's sodium 124, patient had a sodium 124 before, we will hold the patient home medication HCTZ, continue supervisor laboratory animal facility, start with the patient intravenous normal saline IV fluids (3) HTN (hypertension) Conclusion/Plan: Patient had Elevated blood pressure, we will resume patient home medication, we will add hydralazine as needed and add Norvasc (4) Dehydration Conclusion/Plan: Patient had slightly elevated BUN, patient had nausea vomiting before, patient reduced oral intake as he report. We will give patient intravenous IV fluids, continue supervisor laboratory animal facility (5) Asthma Conclusion/Plan: Patient has history of asthma but not asthma exacerbation, we will resume albuterol as needed (6) Chronic back pain Conclusion/Plan: Patient reported he has chronic back pain and complain back pain now, will give pain medication has any needed, [place] - Lab Results Fish Bones: 07/18/20 08:45 07/18/20 08:45 Core Measures - Anticipated LOS I expect patient to be DC'd or transferred within 96 hours.: Yes - DVT/VTE - Prophylaxis VTE/DVT Device ordered at admit?: Yes VTE/DVT Prophylaxis med ordered at admit?: Yes
[2020-07-18] MEDS ORDERED: hydroCHLOROthiazide 25 MG TABLET PO SCH (13:00)
[2020-07-18] MEDS ORDERED: LOSARTAN 50 MG TABLET PO SCH ×2 (13:00→14:45)
[2020-07-18] MEDS: amLODIPine 5 MG TABLET PO SCH (14:48)
[2020-07-18] MEDS: SODIUM CHLORIDE 0.9% 1,000 ML IV SCH (14:49)
[2020-07-18 14:57] LABS: C. PNEUMONIAE- RESP PCR PANEL NOT DETECTED
[2020-07-18] MEDS ORDERED: HYDROcod/ACETAM 5/325 MG TABLET PO PRN (16:13)
[2020-07-18] MEDS: PANTOPRAZOLE 40 MG TABLET PO SCH (17:29)
[2020-07-18] MEDS: AMOX/CLAV 500 MG/125 MG TABLET PO SCH (17:29)
[2020-07-18] MEDS: SODIUM CHLORIDE FLUSH 0.9% 10 ML SYRINGE IVP SCH (17:30)
[2020-07-18] MEDS ORDERED: metroNIDAZOLE 250 MG TABLET PO SCH (18:00)
[2020-07-18] MEDS ORDERED: HYDROcod/ACETAM 10 MG/325 MG TABLET PO PRN (18:42)
[2020-07-19] MEDS: AMOX/CLAV 500 MG/125 MG TABLET PO SCH ×3 (01:01→11:54)
[2020-07-19] MEDS: SODIUM CHLORIDE FLUSH 0.9% 10 ML SYRINGE IVP SCH ×2 (01:01→08:44)
[2020-07-19] MEDS: SODIUM CHLORIDE 0.9% 1,000 ML IV SCH (02:50)
[2020-07-19 05:05] LABS: BASOPHILS # (AUTO) 0.1 10^3/uL (0.0-0.1); BASOPHILS % (AUTO) 0.6 %; EOSINOPHILS # (AUTO) 0.1 10^3/uL (0.0-0.7); EOSINOPHILS % (AUTO) 1.8 %; HGB - HEMOGLOBIN 12.6 g/dL (14.0-18.0); MEAN CORPUSCULAR HGB CONC 33.2 g/dL (32.0-36.0); MEAN CORPUSCULAR VOLUME 90.2 fL (80.0-94.0); MONOCYTES # (AUTO) 1.4 10^3/uL (0.0-1.0); MONOCYTES % (AUTO) 17.3 %; NEUTROPHILS # (AUTO) 5.4 10^3/uL (1.5-6.6); PLT - PLATELET COUNT 218 10^3/uL (130-450); RED CELL DISTRIBUTION WIDTH 12.5 % (12.0-15.0)
[2020-07-19 05:13] LABS: CREATININE 0.8 mg/dL (0.6-1.2); MAGNESIUM 1.9 mg/dL (1.7-2.8)
[2020-07-19] MEDS ORDERED: PANTOPRAZOLE 40 MG TABLET PO SCH (07:00)
[2020-07-19] MEDS: amLODIPine 5 MG TABLET PO SCH (08:44)
[2020-07-19] MEDS: PANTOPRAZOLE 40 MG TABLET PO SCH (08:44)
[2020-07-19] MEDS ORDERED: ENOXAPARIN 40 MG/0.4 ML SYRINGE SUBQ SCH (09:00)
[2020-07-19] MEDS ORDERED: LOSARTAN 50 MG TABLET PO SCH ×2 (09:00)
[2020-07-19 14:17] VITALS: BP 148/64
--- NOTE | 2020-07-19 14:42 | Discharge Plan ---
Discharge Plan Problem Reviewed?: Yes Disposition: Home, Self Care Condition: Stable Prescriptions: HYDROcodone/ACET 10/325 [Mcgrath 10 mg/325 mg] 1 tab PO Q4HR PRN #20 tablet PRN Reason: Pain Losartan [Cozaar] 100 mg PO DAILY #60 tab Diet: Regular Activity Restrictions: No Restrictions Shower Restrictions: No (fall precaution) Instruction Topics: Syncope, Syncope Tx Prevent, Syncope Heart Help, Dizziness Fainting Ch, Vertigo Ch, Acetaminophen Hydrocodone tablets or capsules, Dehydration, Dehydration Rehydration Ch Health Concerns: syncope, dehydration Plan of Treatment: your home antibiotics Metronidazole made you feel nausea and vomiting, it is hold now. your home blood pressure medication Hydrochlorothiazide can cause your hyponatremia, it is hold now. Your home blood pressure medication Losartan dosage is increased to 100mg daily from previous 50 mg daily. Your test ECHO, EKG and troponin test all are unremarkable. Your blood pressure is stable, advise you keep hydration at home and followup with fall prevention, standing up and walk slowly, out-pt PT/OT are recommended to you. Care Goals: stabilization and improvement of your medical conditions Assessment: discussed the care plan with you, and answer your questions, you understood Additional Instructions or Follow Up instructions: You may followup with your PCP in one to two weeks. Should your symptoms return or worse, you may present ER or call 911 for help. Follow-Up Care: Outpatient Rehab - PT, Outpatient Rehab - OT No Smoking: If you smoke, Please STOP! Call for help. Follow-up with: Kenneth Arceo MD [Primary Care Provider] -
--- NOTE | 2020-07-19 14:54 | DISCHARGE SUMMARY ---
Discharge Summary Admit Date: 07/18/20 Discharge Date: 07/19/20 Discharging Provider: Yasmany Dela Cruz Primary Care Provider: Kenneth Patel Condition at Discharge: Stable Discharge Disposition: 01 Home, Self Care Discharge Facility Name: home - DIAGNOSES Discharge Diagnoses with Status of Each Condition: (1) Syncope pt has no dizzy or lightheaded in hospital. his ECHO, Troponin and the EKG, orthostatic all are unremarkable. Patient denies chest pain, fever, shortness breath. Patient reported he reduced oral intake because of his dental infection and pain, and he report he has nausea and vomiting, And slightly increased BUN. it is likely pt's reduced oral intake and dehydration contribute pt's syncope. Patient is advised to keep hydration in the home, how to prevention of fall. (2) Hyponatremia improved Significantly, sodium is 130 today from previous 124. pt has hx of hyponatremia. (3) HTN (hypertension) stable. Patient's home medication HCTZ is on hold because side effect of HCTZ can cause hyponatremia. patient's home losartan, dosage increases to 100 mg p.o. daily. (4) Dehydration resolved. Advised patient keep hydration (5) Asthma stable (6) Chronic back pain Patient reported he has chronic back pain and complain back pain in hospital as his usually, prescribed [place] PRN, Follow-up with PCP for continued management (7) hx of dental infection Patient had recently dental infection, patient was prescribed antibiotics Augmentin and Flagyl by his dentist. Patient Is allergy to Flagyl, resume patient home Augmentin - HPI History of Present Illness: This is a 85-year-old man with a PMH significant for htn, hld, asthma, GI bleed, GERD, chronic back pain who had recent dental infection and was prescribed antibiotic on Friday by dentist Dr. Perkins, who present ER complain of Syncopal episode.Patient reported he had a stomach upset with nausea and vomiting on last night. when he got off the toilet this morning he fall in the floor. He believed he lost his Consciousness and with right side of face pain. He think his face hit the floor when he fall. 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. Patient report he decreased oral intake over the past couple days related to his dental infection and nausea and vomiting. He Denies chest pain, fevers, chill, shortness of breath, nausea, vomiting or abdominal pain now. Pt denies headache, vision change. CT of the head is unremarkable, CT of face show there is a pituitary fossa measuring up to 1.5x1.6 cm consistent with a pituitary macroadenoma enlarging the sella. CTA of the chest show unremarkable for PE with Reduced inspiratory volume. Troponin is negative, EKG show sinus rhythm with prolonged TX interval. Patient's sodium 124. Discussed the care goal with the patient, patient requests full code. - HOSPITAL COURSE Hospital Course: Patient was admitted for syncope, patient was found to have dehydration. Patient's echo, EKG, troponin, orthostatic blood pressure are all Unremarkable. Patient had intravenous IV fluids for his dehydration. Patient blood pressure is stable, patient has no dizziness or lightheaded. Patient is advised to have hydration in the home, prevention of the fall in the home, recommend the patient had out-pt physical therapist and occupational therapist. Patient is discharged with hemodynamic stable condition. - ALLERGIES Allergies/Adverse Reactions: Allergies Allergy/AdvReac Type Severity Reaction Status Date / Time ciprofloxacin Allergy Unknown Verified 07/18/20 08:09 metronidazole [From Flagyl] Allergy Unknown Verified 07/18/20 08:09 - MEDICATIONS Home Medications: Ambulatory Orders Medication Instructions Recorded Confirmed Albuterol Sulfate [Proair Hfa 8.5 gm IH Q4H PRN 10/23/15 07/18/20 Inhaler] Azelastine HCl 2 sprays INH BID 12/31/18 07/18/20 Cholecalciferol (Vitamin D3) 1 tab ORAL DAILY 12/31/18 07/18/20 [Vitamin D3] Magnesium Oxide [Magnesium] 1 cap ORAL DAILY 12/31/18 07/18/20 Mometasone/Formoterol [Dulera 200 1 inh INH BID 12/31/18 07/18/20 Mcg-5 Mcg Inhaler] Pravastatin Sodium 1 tab ORAL DAILY 12/31/18 07/18/20 Amox/Clav 500/125 [Augmentin 1 each PO Q6HR 07/18/20 07/18/20 500/125] Multivit-Min/FA/Lycopen/Lutein 1 each PO DAILY 07/18/20 07/18/20 [Centrum Silver Men Tablet] HYDROcodone/ACET 10/325 [[place] 10 1 tab PO Q4HR PRN #20 tablet 07/19/20 mg/325 mg] Losartan [Cozaar] 100 mg PO DAILY #60 tab 07/19/20 - PHYSICAL EXAM AT DISCHARGE General Appearance: positive: No acute distress, Alert. negative: Lethargic Eyes Bilateral: positive: Normal inspection, PERRL, No lid inflammation ENT: positive: ENT inspection nml, No signs of dehydration. negative: Purulent nasal drainage Neck: positive: Nml inspection, Thyroid nml, Trachea midline. negative: Thyromegaly, Tracheal deviation Respiratory: positive: Chest non-tender, No respiratory distress, Breath sounds nml. negative: Wheezes, Rales, Rhonchi Cardiovascular: positive: Regular rate & rhythm, No murmur. negative: Tachycardia, Bradycardia, Systolic murmur, Diastolic murmur Peripheral Pulses: positive: 2+ Abdomen: positive: Non-tender, Nml bowel sounds, No distention. negative: Tenderness, Guarding, Rebound Back: positive: Nml inspection. negative: CVA tenderness (R), CVA tenderness (L) Skin: positive: Color nml, No rash, Warm, Dry. negative: Cyanosis, Diaphoresis, Pallor Extremities: positive: Non-tender, Full ROM, Nml appearance. negative: Calf tenderness Neurologic/Psychiatric: positive: Oriented x3, Motor nml, Sensation nml, Mood/affect nml. negative: Weakness, Sensory loss, Facial droop, Slurred/abnml speech, Depressed mood/affect - LABS Result Diagrams: 07/19/20 04:35 07/19/20 04:35 - FOLLOW UP Follow Up: your home antibiotics Metronidazole made you feel nausea and vomiting, it is hold now. your home blood pressure medication Hydrochlorothiazide can cause your hyponatremia, it is hold now. Your home blood pressure medication Losartan dosage is increased to 100mg daily from previous 50 mg daily. Your test ECHO, EKG and troponin test all are unremarkable. Your blood pressure is stable, advise you keep hydration at home and followup with fall prevention, standing up and walk slowly, out-pt PT/OT are recommended to you. You may followup with your PCP in one to two weeks. Should your symptoms return or worse, you may present ER or call 911 for help. - TIME SPENT Time Spent in Discharge (Minutes): 30
== END 2020-07-19 15:59 | disposition home or self-care (01) ==
LOC: EDUNIT# → ED 07:55 → MS3 12:46
PROVIDERS: ADMIT Nurse Practitioner Gerontology; ATTEND Nurse Practitioner Gerontology
DX: R55 Syncope and collapse (principal); E87.1 Hypo-osmolality and hyponatremia; E86.0 Dehydration; I10 Essential (primary) hypertension; I44.0 Atrioventricular block, first degree; E78.5 Hyperlipidemia, unspecified; K04.7 Periapical abscess without sinus; J45.909 Unspecified asthma, uncomplicated; K21.9 Gastro-esophageal reflux disease without esophagitis; R35.1 Nocturia; G89.29 Other chronic pain; M54.9 Dorsalgia, unspecified; R93.0 Abnormal findings on diagnostic imaging of skull and head, not elsewhere classified; Z79.51 Long term (current) use of inhaled steroids; Z79.899 Other long term (current) drug therapy; Z91.81 History of falling
CPT/HCPCS: 36415; 70450; 70487; 71045; 71275; 80048; 80053; 83690; 83735; 84484; 85025; 85379; 87631; 93005; 93306; 96361; 96372; 96374; 96375; 99284; 99285; A9270; G0378; J1650; J7120; Q9967; 0202U

== ENCOUNTER 2020-07-20 11:17 | Outpatient (CLI) | payer MEDICARE | END 2020-07-20 11:18 | disposition critical access hospital (66) | LOC: EMS 11:17 | PROVIDERS: ATTEND Surgery | DX: R22.0 Localized swelling, mass and lump, head (principal) | CPT/HCPCS: A0425; A0429 ==

== ENCOUNTER 2020-07-20 11:21 | Emergency (ER) | payer MEDICARE ==
--- NOTE | 2020-07-20 11:54 | ED Physician Documentation ---
History of Present Illness - Stated complaint Stated Complaint: FLANK PAIN - Chief complaint Chief Complaint: General - History obtained from History obtained from: Patient - Additonal information Additional information: 85-year-old male presents to the emergency department for evaluation of 2 concerns: 1. He reports persistent pain in both of his hips and lower lumbar spine. He states that this has been an ongoing problem for the better part of 1 to 2 years. He was scheduled to start physical therapy however due to a recent hospitalization that was delayed. He is able to ambulate. He has no lower leg swelling. He has no deformity. But with a recent fall he would like to rule out a fracture. 2. He is concerned about increasing facial swelling and redness that extends down to his neck. Patient was recently diagnosed with a dental infection and was started on Augmentin and Flagyl by his dentist. He was referred to an oral surgeon. He reports that the swelling has not improved though the pain has abated. However now he appears to have redness on the right side of his face and cheek with mild induration extending into the neck. No trismus, no dysphonia. He is tolerating his oral secretions. He has no fever. This gentleman was admitted with a syncopal episode 07/18/2020. While hospitalized he was noted to be hyponatremic but that did resolve by the time that he was discharged from the hospital. His EKG Orthop static blood pressures troponins were all negative. He also underwent an echocardiogram that showed no worrisome findings. Review of Systems Constitutional: denies: Fever, Chills Eyes: reports: Reviewed and negative Ears: reports: Reviewed and negative Nose: reports: Reviewed and negative Throat: reports: Reviewed and negative Cardiac: reports: Reviewed and negative Respiratory: reports: Reviewed and negative GI: denies: Abdominal Pain, Nausea, Vomiting : denies: Dysuria, Frequency, Hesitancy Skin: reports: Other (facial erythema, neck swelling) Musculoskeletal: reports: Back pain, Joint pain (low back and hip pain) Neurologic: reports: Syncope (recently hospitalized 07/18/20). denies: Focal weakness, Numbness, Difficulty speaking Psychiatric: reports: Reviewed and negative Endocrine: reports: Reviewed and negative PD PAST MEDICAL HISTORY - Past Medical History Past Medical History: Yes Cardiovascular: Hypertension, High cholesterol Respiratory: Asthma Neuro: None Endocrine/Autoimmune: None GI: GERD, GI bleed : Nocturia HEENT: None Psych: None Musculoskeletal: Chronic back pain Derm: None - Past Surgical History Past Surgical History: Yes General: Cholecystectomy, Appendectomy HEENT: Cataracts, Tonsil/Adenoidectomy Derm: Skin cancer surgery - Present Medications Home Medications: Ambulatory Orders Medication Instructions Recorded Confirmed Albuterol Sulfate [Proair Hfa 8.5 gm IH Q4H PRN 10/23/15 07/18/20 Inhaler] Azelastine HCl 2 sprays INH BID 12/31/18 07/18/20 Cholecalciferol (Vitamin D3) 1 tab ORAL DAILY 12/31/18 07/18/20 [Vitamin D3] Magnesium Oxide [Magnesium] 1 cap ORAL DAILY 12/31/18 07/18/20 Mometasone/Formoterol [Dulera 200 1 inh INH BID 12/31/18 07/18/20 Mcg-5 Mcg Inhaler] Pravastatin Sodium 1 tab ORAL DAILY 12/31/18 07/18/20 Amox/Clav 500/125 [Augmentin 1 each PO Q6HR 07/18/20 07/18/20 500/125] Multivit-Min/FA/Lycopen/Lutein 1 each PO DAILY 07/18/20 07/18/20 [Centrum Silver Men Tablet] HYDROcodone/ACET 10/325 [[place] 10 1 tab PO Q4HR PRN #20 tablet 07/19/20 mg/325 mg] Losartan [Cozaar] 100 mg PO DAILY #60 tab 07/19/20 Sulfamethox/Trimeth 800/160 1 each PO BID #14 tablet 07/20/20 [Bactrim Ds 800/160] - Allergies Allergies/Adverse Reactions: Allergies Allergy/AdvReac Type Severity Reaction Status Date / Time ciprofloxacin Allergy Unknown Verified 07/20/20 11:31 metronidazole [From Flagyl] Allergy Unknown Verified 07/20/20 11:31 Quinolones Allergy Unknown Verified 07/20/20 11:31 simvastatin Allergy Unknown Verified 07/20/20 11:31 - Social History Does the pt smoke?: No Smoking Status: Never smoker Does the pt drink ETOH?: No Does the pt have substance abuse?: No - Immunizations Immunizations are current?: Yes - POLST Patient has POLST: No PD ED PE EXPANDED - General General: Alert, No acute distress. No: In Pain - HEENT HEENT: PERRL, EOMI, Moist mucous membranes, Dentition normal (Generally poor dentition with multiple caries and missing teeth.), Oral lesions / sores (No swelling on the floor of the mouth lip or tongue), Other (Erythema and mild induration of the right cheek lower jaw that extends to the right side of the neck. No fluctuance. Mildly tender to palpation. No trismus normal phonation. Patient able to tolerate oral secretions.) - Neck Neck: Supple w/out meningeal sx, Bruit present. No: No tenderness, Soft tissue TTP, Limited ROM - Cardiac Cardiac: Regular Rate, Regular Rhythm, Radial strong equal, Pedal strong equal, Cap refill < 2 sec - Respiratory Respiratory: Clear to ausultation ramses. No: Distress, Labored - Abdomen Abdomen: Normal Bowel sounds. No: Tender to palpation - Back Back: Soft tissue tenderness (Generalized tenderness across the lower lumbar area without focal midline tenderness. No swelling erythema or crepitus noted.). No: Vertebral tenderness - Extremities Extremities: Normal, Right hip, Left hip (Full range of motion of both hips in all planes without clicks. No shortening of the leg. Patient is able to stand and bear weight with a walker.). No: Deformity - Neuro Neuro: Alert and Oriented X 3, CNII-XII intact - GCS Eye Opening: Spontaneous Motor: Obeys Commands Verbal: Oriented Total: 15 Results - Vitals Vitals: Vital Signs - 24 hr 07/20/20 07/20/20 11:25 12:45 Temperature 36.5 C Heart Rate 69 63 Respiratory 20 16 Rate Blood Pressure 183/81 H 155/75 H O2 Saturation 96 99 Oxygen O2 Source Room air - Labs Labs: Laboratory Tests 07/20/20 07/20/20 11:50 11:50 WBC 7.7 RBC 4.12 L Hgb 12.5 L Hct 37.6 L MCV 91.3 MCH 30.3 MCHC 33.2 RDW 12.9 Plt Count 239 MPV 8.7 Neut # (Auto) 4.8 Lymph # (Auto) 1.1 L [place] # (Auto) 1.4 H Eos # (Auto) 0.4 Baso # (Auto) 0.1 Absolute Nucleated RBC 0.00 Nucleated RBC % 0.0 Sodium 129 L Potassium 4.2 Chloride 96 L Carbon Dioxide 23 Anion Gap 10.0 BUN 23 H Creatinine 0.9 Estimated GFR (MDRD) 80 L Glucose 129 H Calcium 8.8 Total Bilirubin 0.7 AST 54 H ALT 40 Alkaline Phosphatase 54 Total Protein 6.5 L Albumin 3.3 Globulin 3.2 Albumin/Globulin Ratio 1.0 Lipase 15 L - Rads (name of study) Bilat Hip xr Radiology: Final report received (Mild bilateral hip osteoarthritis. No fracture no acute osseous lesion.) lumbar xr Radiology: Final report received (L1 compression fracture of indeterminate age which results in approximately 20% loss of normal vertebral body height. Mult ilevel degenerative disease. Multilevel facet arthropathy) CT soft tissue neck Radiology: Final report received (Mild soft tissue swelling and inflammation involving the right submandibular soft tissues is nonspecific but could be related to cellulitis. 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 1.6 x 2 cm pituitary mass possibly representing a pituitary adenoma recommend ) PD MEDICAL DECISION MAKING - ED course Complexity details: reviewed results, re-evaluated patient, considered differential, d/w patient, d/w sales consultant insurance (Dr. Jennie aviles) ED course: 85-year-old gentleman Was seen today in the emergency department for evaluation of lower back and bilateral hip pain after fall 2 days ago. He was subsequent quickly hospitalized after a syncopal event. The work-up in the hospital showed no troponin elevations, normal echocardiogram and a normal EKG. He had stated to this provider that he has been having low back pain and hip pain for a number of months. He is scheduled to be seen by physical therapy. X-ray of the lumbar spine does show an L1 to pression fracture with 20% disc height loss. The age is indeterminate. He has no saddle anesthesias and normal movement the lower extremities. X-ray of the hips did not show any fractures though osteoarthritis is present. He is able to bear weight and walk with a walker. We will discharge him to continue follow-up with his primary care provider and physical therapy. The second concern is the dental infection that he has completed a course of Augmentin for. Despite that he has erythema extending from the right cheek down to the submandibular area and neck. The patient was seen today by Dr. Estrada aviles with [facility]. He would like to see the patient in office tomorrow. He suspects that the gentleman may have soft tissue cellulitis but this may also be a lacrimal duct infection. He would recommend changing the antibiotics to something with good staph coverage and therefore we will start him on Bactrim as he does have an allergy to fluoroquinolones. A CT soft tissue of the neck did not show any findings consistent with Juliano's angina. We do have suspicion for pituitary microadenoma. This was discussed with the patient. He will see his primary care provider and will need to have an MRI completed on an outpatient basis. Departure - Departure Disposition: 01 Home, Self Care Clinical Impression: Facial cellulitis Compression fracture of L1 lumbar vertebra Qualifiers: Encounter type: initial encounter Qualified Code(s): S32.010A - Wedge compression fracture of first lumbar vertebra, initial encounter for closed fracture Osteoarthritis, hip, bilateral Qualifiers: Osteoarthritis type: unspecified Qualified Code(s): M16.0 - Bilateral primary osteoarthritis of hip Condition: Stable Record reviewed to determine appropriate education?: Yes Instructions: ED Cellulitis Facial Prescriptions: Sulfamethox/Trimeth 800/160 [Bactrim Ds 800/160] 1 each PO BID #14 tablet Comments: The x-ray of your lumbar spine does show an old lumbar compression fracture. This does not appear new. No specific treatment is needed for it at this time. I recommend you continue to follow-up with physical therapy. The x-rays of your hip do not show any broken bones. You do have arthritis however and that is likely contributing to your symptoms. Dr. Luuould like to see you in his office tomorrow and [place]. Please call in the morning for follow-up. [id number] [facility] [address], [place] [address] scan that was completed today of your head and neck does suggest that you may have an abnormality on your pituitary gland. This should be seen by your primary care provider and an outpatient MRI ordered.
[2020-07-20 12:02] LABS: BASOPHILS # (AUTO) 0.1 10^3/uL (0.0-0.1); BASOPHILS % (AUTO) 0.7 %; EOSINOPHILS # (AUTO) 0.4 10^3/uL (0.0-0.7); EOSINOPHILS % (AUTO) 4.8 %; HGB - HEMOGLOBIN 12.5 g/dL (14.0-18.0); LYMPHOCYTES # (AUTO) 1.1 10^3/uL (1.5-3.5); LYMPHOCYTES % (AUTO) 13.8 %; MEAN CORPUSCULAR HEMOGLOBIN 30.3 pg (27.0-31.0); MEAN CORPUSCULAR HGB CONC 33.2 g/dL (32.0-36.0); MEAN CORPUSCULAR VOLUME 91.3 fL (80.0-94.0); MEAN PLATELET VOLUME 8.7 fL (7.4-11.4); MONOCYTES # (AUTO) 1.4 10^3/uL (0.0-1.0); MONOCYTES % (AUTO) 18.3 %; NEUTROPHILS # (AUTO) 4.8 10^3/uL (1.5-6.6); NEUTROPHILS % (AUTO) 61.9 %; PLT - PLATELET COUNT 239 10^3/uL (130-450); RED BLOOD COUNT 4.12 10^6/uL (4.70-6.10); RED CELL DISTRIBUTION WIDTH 12.9 % (12.0-15.0); WHITE BLOOD COUNT 7.7 x10^3/uL (4.8-10.8)
[2020-07-20] MEDS ORDERED: IOVERSOL 320 100 ML VIAL IVP ONE ×2 (12:14→16:51)
[2020-07-20 12:16] LABS: ALBUMIN 3.3 g/dL (3.2-5.5); BILIRUBIN,TOTAL 0.7 mg/dL (0.2-1.0); CALCIUM 8.8 mg/dL (8.5-10.3); CREATININE 0.9 mg/dL (0.6-1.2); TOTAL PROTEIN 6.5 g/dL (6.7-8.2)
[2020-07-20] MEDS ORDERED: SODIUM CHLORIDE 0.9% 1,000 ML IV STA (12:20)
--- NOTE | 2020-07-20 12:22 | XRAY Report ---
PROCEDURE: Hips 2V BILAT INDICATIONS: recent fall; r/o fx TECHNIQUE: 2 views of the right and left hip were acquired. COMPARISON: 06/09/2020 FINDINGS: Bones: No fractures or dislocations. No suspicious bony lesions. The visualized pelvic ring appear s intact. Mild osseous hypertrophy and mild joint space narrowing noted in the hips bilaterally. Soft tissues: No suspicious soft tissue calcifications or masses. IMPRESSION: 1. Moderate bilateral hip osteoarthritis. 2. No fracture. No acute osseous lesion. If there are persistent symptoms or continued clinical fili rn for pathology, then advanced imaging (CT, MR, bone scan) should be considered for further evaluati on. Reviewed by: Rose Skinner MD, PhD on 07/20/2020 12:21 PM PST Approved by: Rose Skinner MD, PhD on 07/20/2020 12:21 PM PST Station ID: [id number]
--- NOTE | 2020-07-20 12:24 | XRAY Report ---
PROCEDURE: Lumbar Spine 2 View INDICATIONS: recent fall; r/o fx TECHNIQUE: 2 views of the lumbar spine were acquired. COMPARISON: None. FINDINGS: Bones: 5 [id number] vertebrae are present. There is mild L4-L5 anterolisthesis. Loss of height noted in the L1 vertebral body compatible with compression fracture of indeterminate age. L1 amy malcolm fracture results in approximately 20% loss of normal anterior vertebral body height. No retropul sed fragments or kyphosis associated with the L1 compression deformity. No suspicious bony lesions. M ild L1-L2, L2-L3, L3-L4, L4-L5 and L5-S1 degenerative disc disease. Moderate L3-L4, L4-L5 and L5-S1 f acet arthropathy. Soft tissues: Overlying bowel gas pattern is normal. No suspicious soft tissue calcifications. IMPRESSION: 1. L1 compression fracture of indeterminate age which results in approximately 20% loss of normal linette tebral body height.If there is continued clinical concern for pathology, then MRI should be considere d for further evaluation. 2. Multilevel degenerative disease. 3. Multilevel facet arthropathy. Reviewed by: Rose Skinner MD, PhD on 07/20/2020 12:23 PM PST Approved by: Rose Skinner MD, PhD on 07/20/2020 12:23 PM PST Station ID: [id number]
--- NOTE | 2020-07-20 13:51 | CT Report ---
PROCEDURE: SOFT TISSUE NECK W INDICATIONS: swelling of lower jaw, neck; ? ludwigs CONTRAST: IV CONTRAST: Optiray 320 ml: 100 PO CONTRAST: *NO PO CONTRAST TECHNIQUE: After the administration of intravenous contrast, 3.0 mm axial sections acquired from the sella to th e aortic arch. Additional oblique axial 3.0 mm sections acquired through the pharynx. 3 mm thick co linda reformats were generated. For radiation dose reduction, the following was used: automated exp osure control, adjustment of mA and/or kV according to patient size. COMPARISON: None. FINDINGS: Image quality: Degraded by beam hardening artifact related to metallic dental hardware. Lymph nodes: No enlarged lymph nodes seen throughout the neck. Prominent right level 2A neck lymph n ode is noted which does not meet pathologic size criteria. Vessels: Visualized vasculature appears patent. Atherosclerotic calcifications in the origins of the internal carotid arteries causes moderate, 50-69% stenosis of the origin of the right internal carot id artery and mild, less than 50% stenosis of the origin of the left internal carotid artery. Neck spaces: The oropharynx, nasopharynx, and pharynx demonstrate no mucosal lesions. The vocal cor ds, false vocal cords, pyriform sinuses, epiglottis, vallecula, and tongue base all appear normal. Mi ld stranding and swelling noted in the right submandibular neck soft tissues. No abscess identified. Glands: The parotid and submandibular glands appear normal. The thyroid is normal in size. Miscellaneous: Visualized brain and orbits appear normal. There is a enhancing 1.6 x 1.8 x 2.0 cm pi tuitary/sellar mass. Lung apices appear clear. Superficial soft tissues appear normal. Bones: No suspicious bony lesions.. Spine degenerative disc disease and facet arthropathy are noted. Visualized sinuses and mastoids appear unremarkable. IMPRESSION: 1. Mild soft tissue swelling and inflammation involving the right submandibular soft tissues is nonsp ecific, but could be related to infectious cellulitis. 2. No abscess. 3. No mucosal-based lesions. 4. No lymphadenopathy based on size criteria. 5. 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 6. Spine degenerative disc disease and facet arthropathy. 7. 1.6 x 1.8 x 2.0 cm pituitary mass possibly representing pituitary adenoma. Recommend dedicated MRI of the pituitary gland with and without contrast when clinically feasible. Reviewed by: Rose Skinner MD, PhD on 07/20/2020 1:49 PM PST Approved by: Rose Skinner MD, PhD on 07/20/2020 1:49 PM PST Station ID: [id number]
[2020-07-20] MEDS ORDERED: SULFAMETH/TRIMETH DS 800/160 MG TABLET PO STA (14:00)
[2020-07-20 14:16] VITALS: BP 179/87
== END 2020-07-20 14:30 | disposition home or self-care (01) ==
LOC: EDUNIT# → ED 11:21
DX: L03.211 Cellulitis of face (principal); M16.0 Bilateral primary osteoarthritis of hip; M51.36 Other intervertebral disc degeneration, lumbar region; S32.010A Wedge compression fracture of first lumbar vertebra, initial encounter for closed fracture; W18.30XA Fall on same level, unspecified, initial encounter; K02.9 Dental caries, unspecified; E23.6 Other disorders of pituitary gland; I10 Essential (primary) hypertension
CPT/HCPCS: 36415; 70491; 72100; 73521; 80053; 83690; 85025; 99284; A9270; Q9967

== ENCOUNTER 2020-07-24 17:43 | Outpatient (CLI) | payer MEDICARE | END 2020-07-24 17:44 | disposition critical access hospital (66) | LOC: EMS 17:43 | PROVIDERS: ATTEND Surgery | DX: M54.9 Dorsalgia, unspecified (principal) | CPT/HCPCS: A0425; A0429 ==

== ENCOUNTER 2020-07-24 17:50 | Inpatient (IN) | payer MEDICARE ==
[2020-07-24] MEDS ORDERED: HYDROcod/ACETAM 5/325 MG TABLET PO STA (18:48)
--- NOTE | 2020-07-24 18:48 | ED Physician Documentation ---
PD HPI BACK PAIN - Stated complaint Stated Complaint: FALL - Chief complaint Chief Complaint: Back Pain - History obtained from History obtained from: Patient - Additional information Additional information: This is an 85-year-old gentleman who has been dealing with low back pain all year. Initially he saw his primary care physician who prescribed Biofreeze which actually was quite helpful. Subsequently over the fall the pain got worse. It is in the left low back basically just above the pelvic brim. Week ago he fell, actually syncopized. He was seen here and admitted overnight with no pertinent positive findings to the syncope. Has not had a syncope or fall since. That said his back pain is worse. He was seen here again 4 days ago for this pain. He also had a dental infection that is much better after some antibiotics. He did have a lumbar spine fine x-ray done at that time showing and a L1 compression fracture of indeterminate age. That does not fit the site of his pain. Again the pain is just above the pelvic brim on the left. It is worse with motion and now he is basically nonfunctional. He has not been taking anything for the back pain except for Tylenol. He does take baclofen for chronic leg pain. That is not new though. He denies saddle anesthesia, weakness, tingling, in the legs. No anesthesia or numbness. No fevers. No urinary or bowel complaints. Review of Systems Constitutional: reports: Reviewed and negative Eyes: reports: Reviewed and negative Ears: reports: Reviewed and negative Throat: reports: Reviewed and negative Cardiac: reports: Reviewed and negative Respiratory: reports: Reviewed and negative PD PAST MEDICAL HISTORY - Past Medical History Cardiovascular: Hypertension, High cholesterol Respiratory: Asthma Neuro: None Endocrine/Autoimmune: None GI: GERD, GI bleed : Nocturia HEENT: None Psych: None Musculoskeletal: Chronic back pain Derm: None - Past Surgical History Past Surgical History: Yes General: Cholecystectomy, Appendectomy HEENT: Cataracts, Tonsil/Adenoidectomy Derm: Skin cancer surgery - Present Medications Home Medications: Ambulatory Orders Medication Instructions Recorded Confirmed Albuterol Sulfate [Proair Hfa 8.5 gm IH Q4H PRN 10/23/15 07/18/20 Inhaler] Azelastine HCl 2 sprays INH BID 12/31/18 07/18/20 Cholecalciferol (Vitamin D3) 1 tab ORAL DAILY 12/31/18 07/18/20 [Vitamin D3] Magnesium Oxide [Magnesium] 1 cap ORAL DAILY 12/31/18 07/18/20 Mometasone/Formoterol [Dulera 200 1 inh INH BID 12/31/18 07/18/20 Mcg-5 Mcg Inhaler] Pravastatin Sodium 1 tab ORAL DAILY 12/31/18 07/18/20 Amox/Clav 500/125 [Augmentin 1 each PO Q6HR 07/18/20 07/18/20 500/125] Multivit-Min/FA/Lycopen/Lutein 1 each PO DAILY 07/18/20 07/18/20 [Centrum Silver Men Tablet] HYDROcodone/ACET 10/325 [[place] 10 1 tab PO Q4HR PRN #20 tablet 07/19/20 mg/325 mg] Losartan [Cozaar] 100 mg PO DAILY #60 tab 07/19/20 Sulfamethox/Trimeth 800/160 1 each PO BID #14 tablet 07/20/20 [Bactrim Ds 800/160] - Allergies Allergies/Adverse Reactions: Allergies Allergy/AdvReac Type Severity Reaction Status Date / Time ciprofloxacin Allergy Unknown Verified 07/24/20 17:57 metronidazole [From Flagyl] Allergy Unknown Verified 07/24/20 17:57 Quinolones Allergy Unknown Verified 07/24/20 17:57 simvastatin Allergy Unknown Verified 07/24/20 17:57 - Social History Does the pt smoke?: No Smoking Status: Never smoker Does the pt drink ETOH?: No Does the pt have substance abuse?: No - Immunizations Immunizations are current?: Yes - POLST Patient has POLST: No PD ED PE NORMAL - Vitals Vital signs reviewed: Yes - General General: Alert and oriented X 3, No acute distress - HEENT HEENT: PERRL, EOMI - Neck Neck: Supple, no meningeal sign, No bony TTP - Cardiac Cardiac: RRR, No murmur - Respiratory Respiratory: No respiratory distress, Clear bilaterally - Abdomen Abdomen: Normal bowel sounds, Soft, Non tender - Back Back: No CVA TTP, Other (There is some bony tenderness of the low lumbar spine and left side of the posterior pelvis. He has difficulty with motion due to the pain. Initially cannot sit up on his own but is able to roll onto his side so I can examine his back.) - Extremities Extremities: No calf tenderness / cord (Right calf is chronically larger than the left due to varicose veins, he says this is not new.), Other (The patient kasper s equal and normal Achilles and patellar reflexes bilaterally. Normal sensation in all areas of the legs. Patient denies saddle anesthesia. Normal strength in flexion-extension at the ankles, knees, and flexion of the hips.) - Neuro Neuro: Alert and oriented X 3, Normal speech Results - Vitals Vitals: Vital Signs - 24 hr 07/24/20 07/24/20 07/24/20 17:57 20:01 20:20 Temperature 37.0 C Heart Rate 65 57 L Heart Rate [ 65 Sitting] Heart Rate [ 76 Standing] Heart Rate [ 64 Supine] Respiratory 19 18 Rate Blood Pressure 149/67 H 162/75 H Blood Pressure 112/74 [Sitting] Blood Pressure 69/56 L [Standing] Blood Pressure 151/68 H [Supine] O2 Saturation 100 95 07/24/20 20:27 Temperature Heart Rate 64 Heart Rate [ Sitting] Heart Rate [ Standing] Heart Rate [ Supine] Respiratory 18 Rate Blood Pressure 140/71 H Blood Pressure [Sitting] Blood Pressure [Standing] Blood Pressure [Supine] O2 Saturation 95 Oxygen O2 Source Room air - EKG (time done) 2031 Rate: Rate (enter#) (65) Rhythm: NSR [place]: Normal Intervals: Prolonged IN, RBBB, Other (LAFB) Ischemia: Normal ST segments Computer interpretation: Agree with computer - Labs Labs: Laboratory Tests 07/24/20 07/24/20 07/24/20 20:35 20:35 20:35 WBC 9.5 RBC 4.75 Hgb 14.4 Hct 41.7 L MCV 87.8 MCH 30.3 MCHC 34.5 RDW 12.2 Plt Count 326 MPV 7.9 Neut # (Auto) 6.5 Lymph # (Auto) 1.2 L [place] # (Auto) 1.4 H Eos # (Auto) 0.2 Baso # (Auto) 0.1 Absolute Nucleated RBC 0.00 Nucleated RBC % 0.0 Sodium 120 L* Potassium 4.8 Chloride 84 L Carbon Dioxide 24 Anion Gap 12.0 BUN 21 H Creatinine 1.0 Estimated GFR (MDRD) 71 L Glucose 103 H Calcium 9.1 Total Bilirubin 0.7 AST 64 H ALT 49 Alkaline Phosphatase 95 Troponin I High Sens 9.7 Total Protein 7.2 Albumin 3.6 Globulin 3.6 Albumin/Globulin Ratio 1.0 Lipase 16 L Urine Color Urine Clarity Urine pH Ur Specific [place] Urine Protein Urine Glucose (UA) Urine Ketones Urine Occult Blood Urine Nitrite Urine Bilirubin Urine Urobilinogen Ur Leukocyte Esterase Ur Microscopic Review Urine Culture Comments 07/24/20 21:18 WBC RBC Hgb Hct MCV MCH MCHC RDW Plt Count MPV Neut # (Auto) Lymph # (Auto) [place] # (Auto) Eos # (Auto) Baso # (Auto) Absolute Nucleated RBC Nucleated RBC % Sodium Potassium Chloride Carbon Dioxide Anion Gap BUN Creatinine Estimated GFR (MDRD) Glucose Calcium Total Bilirubin AST ALT Alkaline Phosphatase Troponin I High Sens Total Protein Albumin Globulin Albumin/Globulin Ratio Lipase Urine Color YELLOW Urine Clarity CLEAR Urine pH 7.0 Ur Specific [place] 1.015 Urine Protein NEGATIVE Urine Glucose (UA) NEGATIVE Urine Ketones 15 H Urine Occult Blood NEGATIVE Urine Nitrite NEGATIVE Urine Bilirubin NEGATIVE Urine Urobilinogen 1 (NORMAL) Ur Leukocyte Esterase NEGATIVE Ur Microscopic Review NOT INDICATED Urine Culture Comments NOT INDICATED PD MEDICAL DECISION MAKING - ED course ED course: 85 yo male with worsening back pain that is made him nonfunctional. Findings here also include profound orthostasis, supine down to 69/56 standing. Significant hyponatremia down to 120, it looks like his baseline is 130. I long conversation with his by phone. She is adamant that she does not want him in a skilled nursing. At some point he may benefit from this. I did write an email to his primary care physician, she queried about home health and that actually may be an excellent idea. In the interim given the findings tonight. He will need to be hospitalized for the orthostasis and hypovolemic hyponatremia. A CT of the pelvis and low back was done, interpreted contemporaneously by me. There were no acute findings. He does have degenerative changes of visualized lumbar spine. No lower abdominal findings other than aortic atherosclerosis. does note new incontinence, but he does not seem to have overflow incontinence as he is able to empty his bladder on command and post void bladder residual was not remarkable. Departure - Departure Disposition: ED Place in Observation Clinical Impression: Dehydration, Hyponatremia, Orthostasis Back pain Qualifiers: Back pain location: low back pain Chronicity: unspecified Back pain laterality: left Sciatica presence: without sciatica Qualified Code(s): M54.5 - Low back pain Condition: Serious
--- NOTE | 2020-07-24 19:37 | CT Report ---
PROCEDURE: PELVIS WO INDICATIONS: back pain TECHNIQUE: Noncontrast 3 mm axial sections acquired through the bony pelvis, with coronal and sagittal reformatt ing. For radiation dose reduction, the following was used: automated exposure control, adjustment of mA and/or kV according to patient size. COMPARISON: None. FINDINGS: Image quality: Excellent. Bones: Acute fracture or dislocation. No compression deformities where visualized. No suspicious bon y lesions. Moderate to severe facet sclerosis is noted throughout the lower lumbar spine. Soft tissues: Atheromatous calcifications are noted within the abdominal aorta. The bladder is fluid -filled and thin-walled. Visualized portions of the bowel demonstrate normal caliber and wall thickne ss. Trace low-density fluid is present within the pelvis. There are small bilateral fat and fluid-con taining inguinal hernias. No inguinal adenopathy. No iliac adenopathy. IMPRESSION: 1. No acute fracture or dislocation. 2. Mild aortic atherosclerosis and moderate degenerative changes of the visualized lumbar spine. 3. No acute intra-abdominal findings where visualized. Reviewed by: Georgiana Brown MD on 07/24/2020 7:36 PM PST Approved by: Georgiana Brown MD on 07/24/2020 7:36 PM PST Station ID: [id number]
[2020-07-24] MEDS ORDERED: SODIUM CHLORIDE 0.9% 1,000 ML IV STA (20:20)
[2020-07-24 20:43] LABS: BASOPHILS # (AUTO) 0.1 10^3/uL (0.0-0.1); BASOPHILS % (AUTO) 0.5 %; EOSINOPHILS # (AUTO) 0.2 10^3/uL (0.0-0.7); EOSINOPHILS % (AUTO) 2.3 %; HGB - HEMOGLOBIN 14.4 g/dL (14.0-18.0); LYMPHOCYTES # (AUTO) 1.2 10^3/uL (1.5-3.5); LYMPHOCYTES % (AUTO) 12.3 %; MEAN CORPUSCULAR HEMOGLOBIN 30.3 pg (27.0-31.0); MEAN CORPUSCULAR HGB CONC 34.5 g/dL (32.0-36.0); MEAN CORPUSCULAR VOLUME 87.8 fL (80.0-94.0); MEAN PLATELET VOLUME 7.9 fL (7.4-11.4); MONOCYTES # (AUTO) 1.4 10^3/uL (0.0-1.0); MONOCYTES % (AUTO) 14.7 %; NEUTROPHILS # (AUTO) 6.5 10^3/uL (1.5-6.6); NEUTROPHILS % (AUTO) 68.6 %; PLT - PLATELET COUNT 326 10^3/uL (130-450); RED BLOOD COUNT 4.75 10^6/uL (4.70-6.10); RED CELL DISTRIBUTION WIDTH 12.2 % (12.0-15.0); WHITE BLOOD COUNT 9.5 x10^3/uL (4.8-10.8)
--- NOTE | 2020-07-24 20:47 | XRAY Report ---
PROCEDURE: Chest 1 View X-Ray INDICATIONS: Chest Pain TECHNIQUE: One view of the chest was acquired. COMPARISON: Single view the chest dated 07/18/2020 FINDINGS: Surgical changes and devices: None. Lungs and pleura: No pleural effusions or pneumothorax. Lungs are clear. Mediastinum: Mediastinal contours appear normal. Heart size is normal. Bones and chest wall: No suspicious bony lesions. Overlying soft tissues appear unremarkable. IMPRESSION: 1. No acute cardiopulmonary findings. Reviewed by: Georgiana Brown MD on 07/24/2020 8:46 PM PST Approved by: Georgiana Brown MD on 07/24/2020 8:46 PM [facility] Station ID: [id number]
[2020-07-24 21:00] LABS: ALBUMIN 3.6 g/dL (3.2-5.5); BILIRUBIN,TOTAL 0.7 mg/dL (0.2-1.0); CALCIUM 9.1 mg/dL (8.5-10.3); TOTAL PROTEIN 7.2 g/dL (6.7-8.2)
[2020-07-24 21:41] LABS: BILIRUBIN,URINE NEGATIVE (NEGATIVE); GLUCOSE, URINE (UA) NEGATIVE (NEGATIVE); KETONES,URINE (UA) 15 mg/dL (NEGATIVE); LEUKOCYTE ESTERASE, URINE NEGATIVE (NEGATIVE); NITRITE,URINE NEGATIVE (NEGATIVE); OCCULT BLOOD,URINE NEGATIVE (NEGATIVE); PROTEIN,URINE NEGATIVE (NEGATIVE); UROBILINOGEN,URINE 1 (NORMAL) E.U./dL (NORMAL)
[2020-07-24 21:47] LABS: CLARITY,URINE CLEAR (CLEAR)
[2020-07-24] MEDS ORDERED: SODIUM CHLORIDE FLUSH 0.9% 10 ML SYRINGE IVP PRN (21:50)
[2020-07-24] MEDS ORDERED: ACETAMINOPHEN 325 MG TABLET PO PRN (21:50)
[2020-07-24] MEDS ORDERED: ONDANSETRON 4 MG/2 ML VIAL IVP PRN (21:50)
--- NOTE | 2020-07-24 21:58 | HISTORY & PHYSICAL EXAMINATION ---
Chief Complaint - Chief Complaint Chief Complaint: back pain, hyponatremia, orthostatic hypotension History of Present Illness - Admitted From Admitted From:: [facility] Ed - History Obtained From Records Reviewed: yes History obtained from: patient and ED ayla - History of Present Illness HPI Comment/Other: Patient is an 85-year-old male who was recently admitted to the hospital on July 18, 2020 for syncope and hyponatremia. His work-up at that time included a 2D echo which was unremarkable. He had preserved left ventricular sys tolic function with ejection fraction of 60 to 65%. Mild concentric left ventricular hypertrophy was noted. There was no regional wall abnormality. He was given IV hydration and subsequently discharged. Even prior to that exam he had been experiencing back pain. He presented to the ED today because his back pain had persisted and was getting worse. Work-up in the ED was largely unremarkable except for a sodium level of 120. Usually his sodium level is around 130. As part of his work-up o rthostatic vitals were attempted. In the sitting position his systolic blood pressure was 151. Standing his blood pressure dropped to 69. He was experiencing dizziness at the time. As a result he was presented for admission for further treatment. He was given 1 L of normal saline in the ED. He was supposed to be working with physical therapy in the outpatient setting however he is here to start. Last week he was admitted in the hospital and has not had an appointment with them since. On a separate note he mentions dental infection for which his dentist put him on Augmentin. At bedside he denies dizziness, chest pain, dyspnea, abdominal pain, nausea, vomiting, fever or chills. He complains of significant back pain. He states that he would like to get back to the state where he was not dependent on a walker. He does not have saddle anesthesia, weakness or tingling in his legs. The option of going to a long-term facility for rehab had been proposed to him and his however his is adamant that he will not go to a snf. History - Past Medical History Cardiovascular: reports: Hypertension, High cholesterol Respiratory: reports: Asthma Neuro: reports: None Endocrine/Autoimmune: reports: None GI: reports: GERD, GI bleed : reports: Nocturia HEENT: reports: None Psych: reports: None Musculoskeletal: reports: Chronic back pain Derm: reports: None MRSA Hx?: No - Past Surgical History General: reports: Cholecystectomy, Appendectomy HEENT: reports: Cataracts, Tonsil/Adenoidectomy Derm: reports: Skin cancer surgery - Family & Social History Family History: Mother: , Father: Family History Comment/Other: Patient reported that his father at the age of 72 from surgical complications. His mother at age 90 from complications of aging. Unknown exact cause. Social History Notes: Patient denies history of smoke, alcohol or drug use. He lives in [facility] with his . He has 3 children - POLST Patient has POLST: No POLST Status: Full Code Meds/Allgy - Home Medications Home Medications: Ambulatory Orders Medication Instructions Recorded Confirmed Albuterol Sulfate [Proair Hfa 8.5 gm IH Q4H PRN 10/23/15 07/18/20 Inhaler] Azelastine HCl 2 sprays INH BID 12/31/18 07/18/20 Cholecalciferol (Vitamin D3) 1 tab ORAL DAILY 12/31/18 07/18/20 [Vitamin D3] Magnesium Oxide [Magnesium] 1 cap ORAL DAILY 12/31/18 07/18/20 Mometasone/Formoterol [Dulera 200 1 inh INH BID 12/31/18 07/18/20 Mcg-5 Mcg Inhaler] Pravastatin Sodium 1 tab ORAL DAILY 12/31/18 07/18/20 Amox/Clav 500/125 [Augmentin 1 each PO Q6HR 07/18/20 07/18/20 500/125] Multivit-Min/FA/Lycopen/Lutein 1 each PO DAILY 07/18/20 07/18/20 [Centrum Silver Men Tablet] HYDROcodone/ACET 10/325 [[place] 10 1 tab PO Q4HR PRN #20 tablet 07/19/20 mg/325 mg] Losartan [Cozaar] 100 mg PO DAILY #60 tab 07/19/20 Sulfamethox/Trimeth 800/160 1 each PO BID #14 tablet 07/20/20 [Bactrim Ds 800/160] - Allergies Allergies/Adverse Reactions: Allergies Allergy/AdvReac Type Severity Reaction Status Date / Time ciprofloxacin Allergy Unknown Verified 07/24/20 17:57 metronidazole [From Flagyl] Allergy Unknown Verified 07/24/20 17:57 Quinolones Allergy Unknown Verified 12/21/20 17:57 simvastatin Allergy Unknown Verified 07/24/20 17:57 Review of Systems - Constitutional Constitutional: reports: Weakness. denies: Fever, Chills - Eyes Eyes: denies: Pain, Vision loss, Dipolpia - Ears, Nose & Throat Ears, Nose & Throat: denies: Ear pain, Sore throat - Cardiovascular Cariovascular: reports: Lightheadedness. denies: Irregular heart rate, Palpitations, Chest pain, Edema - Respiratory Respiratory: denies: Cough, Sputum production, Wheezing, Orthopnea, SOB at rest, SOB with exertion - Gastrointestinal Gastrointestinal: denies: Abdominal pain, Abdominal distention, Constipation, Diarrhea, Nausea, Vomiting - Genitourinary Genitourinary: reports: Incontinence. denies: Dysuria, Frequency, Urgency, Hematuria, Flank pain - Musculoskeletal Musculoskeletal: reports: Back pain. denies: Muscle pain, Muscle aches - Integumentary Integumentary: denies: Rash, Pruritis, Lesions - Neurological Neurological: reports: General weakness, Dizziness. denies: Focal weakness, Headache - Psychiatric Psychiatric: denies: Depression, Anxiety - Endocrine Endocrine: denies: Polyuria, Polydypsia - Hematologic/Lymphatic Hematologic/Lymphatic: denies: Anemia, Bruising, Petechiae Prior Level of Functionality: Is reported that patient's physical condition has been steadily declining. He is dependent for activities of daily living. Exam - Vital Signs Vital Signs: Vital Signs x48h Temp Pulse Pulse Pulse Pulse Resp BP 07/24/20 20:27 64 18 140/71 H 07/24/20 20:20 65 76 64 07/24/20 20:01 57 L 18 162/75 H 07/24/20 17:57 37.0 C 65 19 149/67 H BP BP BP Pulse Ox 07/24/20 20:27 95 07/24/20 20:20 112/74 69/56 L 151/68 H 07/24/20 20:01 95 07/24/20 17:57 100 - Physical Exam General Appearance: positive: Alert, Moderate distress Eyes Bilateral: positive: PERRL, EOMI ENT: positive: No signs of dehydration Neck: positive: No JVD, Trachea midline Respiratory: positive: Chest non-tender, No respiratory distress, Breath sounds nml. negative: Wheezes, Rales, Rhonchi Cardiovascular: positive: Regular rate & rhythm, No murmur Abdomen: positive: Non-tender, No organomegaly, Nml bowel sounds, No distention. negative: Guarding, Rebound Back: positive: Nml inspection Skin: positive: Color nml, No rash, Warm, Dry. negative: Diaphoresis, Pallor, Skin rash Extremities: positive: Non-tender, Full ROM, Nml appearance, No pedal edema Neurologic/Psychiatric: positive: Oriented x3, Mood/affect nml Conclusion/Plan - Problem List (1) Hyponatremia Conclusion/Plan: Etiology: Suspect volume depletion. Patient was given 1 L of normal saline bolus in the ED. We will continue normal saline at 100 mils an hour with surgery and check q. 8 hours x 3. (2) Orthostatic hypotension Conclusion/Plan: Systolic blood pressure dropped from 151/68 sitting down to 69/56 standing Etiology: Volume depletion versus vasovagal versus medication. Patient was given 1 L of normal saline bolus in the ED. Will continue normal saline at 100 mL/h. We will hold patient's losartan. Will monitor orthostatic vitals. (3) Back pain Conclusion/Plan: Chronic. PT OT to evaluate and treat. Tylenol, oxycodone, Toradol and morphine ordered as needed. Patient also takes baclofen. Will order lidocaine patch. Qualifiers: Back pain location: low back pain Chronicity: unspecified Back pain laterality: left Sciatica presence: without sciatica Qualified Code(s): M54.5 - Low back pain - Lab Results Fish Bones: 07/24/20 20:35 07/24/20 20:35 Core Measures - Anticipated LOS I expect patient to be DC'd or transferred within 96 hours.: Yes - DVT/VTE - Prophylaxis VTE/DVT Device ordered at admit?: Yes VTE/DVT Prophylaxis med ordered at admit?: Yes
[2020-07-24] MEDS: SODIUM CHLORIDE 0.9% 1,000 ML IV SCH (22:44)
[2020-07-24] MEDS ORDERED: MORPHINE 2 MG/ML CARPUJECT IVP PRN (23:28)
[2020-07-24] MEDS: SODIUM CHLORIDE FLUSH 0.9% 10 ML SYRINGE IVP SCH (23:31)
[2020-07-24 23:43] LABS: C. PNEUMONIAE- RESP PCR PANEL NOT DETECTED
[2020-07-24] MEDS: oxyCODONE 5 MG TABLET PO PRN (23:58)
[2020-07-25 05:15] LABS: BASOPHILS % (AUTO) 0.6 %; EOSINOPHILS % (AUTO) 3.2 %; HGB - HEMOGLOBIN 13.5 g/dL (14.0-18.0); MEAN CORPUSCULAR HEMOGLOBIN 30.1 pg (27.0-31.0); MEAN CORPUSCULAR HGB CONC 33.6 g/dL (32.0-36.0); MEAN CORPUSCULAR VOLUME 89.5 fL (80.0-94.0); MEAN PLATELET VOLUME 8.3 fL (7.4-11.4); MONOCYTES % (AUTO) 18.1 %; NEUTROPHILS % (AUTO) 62.6 %; PLT - PLATELET COUNT 283 10^3/uL (130-450); RED BLOOD COUNT 4.49 10^6/uL (4.70-6.10); RED CELL DISTRIBUTION WIDTH 12.4 % (12.0-15.0); WHITE BLOOD COUNT 9.4 x10^3/uL (4.8-10.8)
[2020-07-25 05:20] LABS: ABNORMAL LYMPHS % (MANUAL) 0 %; BAND NEUTROPHILS % (MANUAL) 0 %
[2020-07-25 05:25] LABS: CALCIUM 8.8 mg/dL (8.5-10.3); CREATININE 0.9 mg/dL (0.6-1.2)
[2020-07-25 05:42] LABS: EOSINOPHILS # (MANUAL) 0.1 10^3/uL (0-0.7); LYMPHOCYTES # (MANUAL) 1.6 10^3/uL (1.5-3.5); LYMPHOCYTES % (MANUAL) 17 %; MONOCYTES # (MANUAL) 0.9 10^3/uL (0.0-1.0)
[2020-07-25 05:43] LABS: DIFFERENTIAL COMMENT MANUAL DIFFERENTIAL; PLATELET ESTIMATE, MANUAL NORMAL (130-450,000) (NORMAL); PLATELET MORPHOLOGY NORMAL APPEARANCE (NORMAL); RBC MORPHOLOGY (MULTIPLE) NORMAL APPEARANCE (NORMAL)
[2020-07-25] MEDS: PANTOPRAZOLE 40 MG TABLET PO SCH (06:15)
[2020-07-25] MEDS: SODIUM CHLORIDE FLUSH 0.9% 10 ML SYRINGE IVP SCH ×2 (09:26→16:53)
[2020-07-25] MEDS: KETOROLAC 15 MG/ML VIAL IVP PRN (09:26)
[2020-07-25] MEDS: SODIUM CHLORIDE 0.9% 1,000 ML IV SCH ×2 (09:26→20:02)
[2020-07-25] MEDS: LIDOCAINE PATCH 5% TOP PRN (09:29)
[2020-07-25] MEDS: oxyCODONE 5 MG TABLET PO PRN (11:50)
--- NOTE | 2020-07-25 12:02 | PHARMACY PROGRESS NOTE ---
- Best Possible Medication History Admit Date and Time: 07/24/20 184 Processed by: Pharmacy Medication History completed: Yes Patient Interview: Completed Secondary Source(s): Physician records (PATIENT INTERVIEWED BY MATERIAL ATTENDANT. PATIENT ABLE TO CONFIRM HOME MEDICATIONS. ), Pharmacy records, Insurance records As the person ultimately responsible for medication therapy, providers are able to order a medication from an existing home medication list in [facility] via the "Reconcile Routine" prior to Confirmation of that medication by desktop support manager. Such practice is discouraged except when the physician, in their clinical judgment, deems that a medical need exists for a medication without regard to previous use.
[2020-07-25 13:30] LABS: CALCIUM 8.2 mg/dL (8.5-10.3)
--- NOTE | 2020-07-25 16:01 | PROVIDER PROGRESS NOTE ---
Assessment/Plan - Problem List (1) Orthostatic hypotension Assessment/Plan: Patient Had significantly orthostatic hypotension With a symptomatic dizzy when the patient stand up. We will hold patient home blood pressure medicine, Keep patient hydration with IVF, patient for stocking and compression, We will check TSH and cortisol in the morning and in the evening. We will educate the patient slowly stand, And prevention of fall. (2) Hyponatremia Conclusion/Plan: Patient has a chronic hyponatremia, today's sodium 123, Slightly improved from 120 at admission, we will hold the patient home medication HCTZ, continue medical laboratory assistant, start with the patient intravenous normal saline IV fluids. It is more likely hypovolemia with hyponatremia. will order cortisol, and total urine osmolality. (3) HTN (hypertension) Conclusion/Plan: we hold pt's blood pressure meds, continue vital sign monitor now (4) Dehydration Conclusion/Plan: Patient had slightly elevated BUN, We will give patient intravenous IV fluids, continue medical laboratory assistant (5) Asthma Conclusion/Plan: Patient has history of asthma but not asthma exacerbation, we will resume albuterol as needed (6) Chronic back pain Conclusion/Plan: Patient reported he has chronic back pain and complain back pain now, will give pain medication as needed. 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 pt was recommended to see neurosurgeon but pt report he still did not see yet. advise pt see neurosurgeon as out-pt. will check cortisol, TSH, urinary sodium and total urine osmolality - Current Meds Current Meds: Current Medications Generic Name Dose Route Start Last Admin Trade Name Tomaszq PRN Reason Stop Dose Admin Acetaminophen 650 mg 07/24/20 21:50 07/25/20 09:26 Acetaminophen 325 Mg Tablet PO 650 mg Q4HR PRN Administration Pain 1 to 4 Sodium Chloride 1,000 mls @ 100 mls/hr 07/24/20 22:00 07/25/20 09:26 Normal Saline 0.9% IV 07/25/20 17:59 100 mls/hr .Q10H BELKYS Administration Ketorolac Tromethamine 15 mg 07/24/20 23:27 07/25/20 09:26 Ketorolac 15 Mg/Ml Vial IVP 07/29/20 23:26 15 mg Q6HR PRN Administration PAIN Lidocaine 1 patch 07/24/20 23:47 07/25/20 09:29 Lidocaine Patch 5% TOP 1 patch DAILY PRN Administration PAIN Oxycodone HCl 5 mg 07/24/20 23:28 07/25/20 11:50 Oxycodone 5 Mg Tablet PO 5 mg Q4HR PRN Administration PAIN Pantoprazole Sodium 40 mg 07/25/20 07:00 07/25/20 06:15 Pantoprazole 40 Mg Tablet PO 40 mg QDAC BELKYS Administration Sodium Chloride 10 ml 07/25/20 01:00 07/25/20 09:26 Sodium Chloride Flush 0.9% 10 Ml Syringe IVP 10 ml 0100,0900,1700 BELKYS Administration - Lab Result Fish Bone Diagrams: 07/25/20 04:35 07/25/20 13:06 - Additional Planning My Orders: My Active Orders 07/25/20 CORTISOL,8-9PM [IAI] Routine Evaluate and Treat OT [OT] Routine Evaluate and Treat PT [PT] Routine 07/25/20 15:41 Nebulizer/MDI Tx. [RC] QID Resp Teach Nebulizer/MDI [RC] .ONCE Albuterol 2.5 mg INH RTQ4H PRN 07/25/20 15:53 Alberto Hose and Compression Devic [RC] Q8H 07/25/20 21:00 Azelastine HCl [Azelastine HCl] 2 sprays INH BID Mometasone/Formoterol [Dulera 200 Mcg-5 Mcg Inhaler] 1 puffs INH BID 07/26/20 04:00 CORTISOL,AM [IAI] Routine 07/26/20 05:00 TSH [THYROID STIMULATING HORMONE] [IAI] DAILYLAB Subjective - Subjective Patient Reports: Feeling Better Objective Vital Signs: Vital Signs - 24 hr 07/24/20 07/24/20 07/24/20 17:57 20:01 20:20 Temperature 37.0 C Heart Rate 65 57 L Heart Rate [ Activity] Heart Rate [ Brachial] Heart Rate [ 65 Sitting] Heart Rate [ 76 Standing] Heart Rate [ 64 Supine] Respiratory 19 18 Rate Blood Pressure 149/67 H 162/75 H Blood Pressure [Activity] Blood Pressure [Left Brachial artery] Blood Pressure 112/74 [Sitting] Blood Pressure 69/56 L [Standing] Blood Pressure 151/68 H [Supine] O2 Saturation 100 95 07/24/20 07/24/20 07/24/20 20:27 22:54 23:40 Temperature 36.4 C L 36.6 C Heart Rate 64 Heart Rate [ Activity] Heart Rate [ 67 60 Brachial] Heart Rate [ Sitting] Heart Rate [ Standing] Heart Rate [ Supine] Respiratory 18 18 20 Rate Blood Pressure 140/71 H Blood Pressure [Activity] Blood Pressure 161/79 H 178/72 H [Left Brachial artery] Blood Pressure [Sitting] Blood Pressure [Standing] Blood Pressure [Supine] O2 Saturation 95 97 96 07/25/20 07/25/20 07/25/20 04:19 07:49 10:20 Temperature 36.4 C L 36.3 C L Heart Rate Heart Rate [ 79 Activity] Heart Rate [ 63 65 Brachial] Heart Rate [ 76 Sitting] Heart Rate [ 97 Standing] Heart Rate [ 68 Supine] Respiratory 16 16 Rate Blood Pressure Blood Pressure 123/84 H [Activity] Blood Pressure 155/69 H 168/66 H [Left Brachial artery] Blood Pressure 143/77 H [Sitting] Blood Pressure 97/58 L [Standing] Blood Pressure 160/66 H [Supine] O2 Saturation 97 97 07/25/20 07/25/20 10:40 13:39 Temperature 36.4 C L Heart Rate Heart Rate [ Activity] Heart Rate [ 64 Brachial] Heart Rate [ 71 Sitting] Heart Rate [ Standing] Heart Rate [ Supine] Respiratory 18 Rate Blood Pressure Blood Pressure [Activity] Blood Pressure 148/68 H [Left Brachial artery] Blood Pressure 126/62 [Sitting] Blood Pressure [Standing] Blood Pressure [Supine] O2 Saturation 96 Oxygen O2 Source Room air I&O (Last 24 Hrs): Intake and Output Totals x24h 07/23/20 07/24/20 07/25/20 23:59 23:59 23:59 Intake Total 1000 2200 Output Total 150 1195 Balance 850 1005 General: Alert, Oriented x3, Cooperative, No acute distress HEENT: Atraumatic Neck: Supple Lymphatic: no adenopathy Neuro: Alert, Non Focal, Oriented Times 3 Cardiovascular: Regular rate, Normal S1, Normal S2 Respiratory: Chest non-tender, No respiratory distress, Breath sounds nml Abdomen: Normal bowel sounds, Soft Extremities: Normal pulses - Results Results: Laboratory Results WBC 9.4 x10^3/uL (4.8-10.8) 07/25/20 04:35 RBC 4.49 10^6/uL (4.70-6.10) L 07/25/20 04:35 Hgb 13.5 g/dL (14.0-18.0) L 07/25/20 04:35 Hct 40.2 % (42.0-52.0) L 07/25/20 04:35 MCV 89.5 fL (80.0-94.0) 07/25/20 04:35 MCH 30.1 pg (27.0-31.0) 07/25/20 04:35 MCHC 33.6 g/dL (32.0-36.0) 07/25/20 04:35 RDW 12.4 % (12.0-15.0) 07/25/20 04:35 Plt Count 283 10^3/uL (130-450) 07/25/20 04:35 MPV 8.3 fL (7.4-11.4) 07/25/20 04:35 Neut # (Auto) Not Reportable 07/25/20 04:35 Lymph # (Auto) Not Reportable 07/25/20 04:35 Taylor # (Auto) Not Reportable 07/25/20 04:35 Eos # (Auto) Not Reportable 07/25/20 04:35 Baso # (Auto) Not Reportable 07/25/20 04:35 Absolute Nucleated RBC Not Reportable 07/25/20 04:35 Total Counted 100 07/25/20 04:35 Band Neuts % (Manual) 0 % (0-10) 07/25/20 04:35 Abnorm Lymph % (Manual) 0 % 07/25/20 04:35 Nucleated RBC % Not Reportable 07/25/20 04:35 Neutrophils # (Manual) 6.8 10^3/uL (1.5-6.6) H 07/25/20 04:35 Lymphocytes # (Manual) 1.6 10^3/uL (1.5-3.5) 07/25/20 04:35 Monocytes # (Manual) 0.9 10^3/uL (0.0-1.0) 07/25/20 04:35 Eosinophils # (Manual) 0.1 10^3/uL (0-0.7) 07/25/20 04:35 Basophils # (Manual) 0.0 10^3/uL (0-0.1) 07/25/20 04:35 Differential Comment MANUAL DIFFERENTIAL 07/25/20 04:35 WBC Morphology NORMAL APPEARANCE (NORMAL) 07/25/20 04:35 Platelet Estimate NORMAL (130-450,000) (NORMAL) 07/25/20 04:35 Platelet Morphology NORMAL APPEARANCE (NORMAL) 07/25/20 04:35 RBC Morph Micro Appear NORMAL APPEARANCE (NORMAL) 07/25/20 04:35 Sodium 121 mmol/L (135-145) L 07/25/20 13:06 Potassium 4.4 mmol/L (3.5-5.0) 07/25/20 13:06 Chloride 90 mmol/L (101-111) L 07/25/20 13:06 Carbon Dioxide 20 mmol/L (21-32) L 07/25/20 13:06 Anion Gap 11.0 (6-13) 07/25/20 13:06 BUN 25 mg/dL (6-20) H 07/25/20 13:06 Creatinine 1.0 mg/dL (0.6-1.2) 07/25/20 13:06 Estimated GFR (MDRD) 71 (>89) L 07/25/20 13:06 Glucose 86 mg/dL (70-100) 07/25/20 13:06 Calcium 8.2 mg/dL (8.5-10.3) L 07/25/20 13:06 Total Bilirubin 0.7 mg/dL (0.2-1.0) 07/24/20 20:35 AST 64 IU/L (10-42) H 07/24/20 20:35 ALT 49 IU/L (10-60) 07/24/20 20:35 Alkaline Phosphatase 95 IU/L (42-121) 07/24/20 20:35 Troponin I High Sens 9.7 ng/L (2.3-19.7) 07/24/20 20:35 Total Protein 7.2 g/dL (6.7-8.2) 07/24/20 20:35 Albumin 3.6 g/dL (3.2-5.5) 07/24/20 20:35 Globulin 3.6 g/dL (2.1-4.2) 07/24/20 20:35 Albumin/Globulin Ratio 1.0 (1.0-2.2) 07/24/20 20:35 Lipase 16 U/L (22-51) L 07/24/20 20:35 Urine Color YELLOW 07/24/20 21:18 Urine Clarity CLEAR (CLEAR) 07/24/20 21:18 Urine pH 7.0 PH (5.0-7.5) 07/24/20 21:18 Ur Specific [place] 1.015 (1.002-1.030) 07/24/20 21:18 Urine Protein NEGATIVE mg/dL (NEGATIVE) 07/24/20 21:18 Urine Glucose (UA) NEGATIVE mg/dL (NEGATIVE) 07/24/20 21:18 Urine Ketones 15 mg/dL (NEGATIVE) H 07/24/20 21:18 Urine Occult Blood NEGATIVE (NEGATIVE) 07/24/20 21:18 Urine Nitrite NEGATIVE (NEGATIVE) 07/24/20 21:18 Urine Bilirubin NEGATIVE (NEGATIVE) 07/24/20 21:18 Urine Urobilinogen 1 (NORMAL) E.U./dL (NORMAL) 07/24/20 21:18 Ur Leukocyte Esterase NEGATIVE (NEGATIVE) 07/24/20 21:18 Ur Microscopic Review NOT INDICATED 07/24/20 21:18 Urine Culture Comments NOT INDICATED 07/24/20 21:18 Nasal Adenovirus (PCR) NOT DETECTED 07/24/20 22:22 Nasal B. parapertussis DNA (PCR) NOT DETECTED 07/24/20 22:22 Nasal Coronavir 229E PCR NOT DETECTED 07/24/20 22:22 Nasal Coronavir HKU1 PCR NOT DETECTED 07/24/20 22:22 Nasal Coronavir NL63 PCR NOT DETECTED 07/24/20 22:22 Nasal Coronavir OC43 PCR NOT DETECTED 07/24/20 22:22 Nasal Enterovir/Rhinovir PCR NOT DETECTED 07/24/20 22:22 Nasal Influenza B PCR NOT DETECTED 07/24/20 22:22 Nasal Influenza A PCR NOT DETECTED 07/24/20 22:22 Nasal Parainfluen 1 PCR NOT DETECTED 07/24/20 22:22 Nasal Parainfluen 2 PCR NOT DETECTED 07/24/20 22:22 Nasal Parainfluen 3 PCR NOT DETECTED 07/24/20 22:22 Nasal Parainfluen 4 PCR NOT DETECTED 07/24/20 22:22 Nasal RSV (PCR) NOT DETECTED 07/24/20 22:22 Nasal B.pertussis DNA PCR NOT DETECTED 07/24/20 22:22 Nasal C.pneumoniae (PCR) NOT DETECTED 07/24/20 22:22 [place] Human Metapneumo PCR NOT DETECTED 07/24/20 22:22 Nasal M.pneumoniae (PCR) NOT DETECTED 07/24/20 22:22 Nasal SARS-CoV-2 (PCR) NOT DETECTED 07/24/20 22:22 - Procedures Procedures: Procedures DRAINAGE OF R FINGER PHALANX JT, OPEN APPROACH, DIAGN (10/24/15) INSERTION OF INFUSION DEV INTO SUP VENA CAVA, PERC APPROACH (10/24/15) ABX Reporting Has patient been on IV antibiotics over the past 48 hours?: No Current Medications - Current Medications Current Medications: Active Medications Acetaminophen (Acetaminophen 325 Mg Tablet) 650 mg PO Q4HR PRN PRN Reason: Pain 1 to 4 Last Admin: 07/25/20 09:26 Dose: 650 mg Documented by: Albuterol (Albuterol Neb 2.5 Mg/3 Ml) 2.5 mg INH RTQ4H PRN PRN Reason: Wheezing Budesonide (Budesonide 0.5 Mg/2 Ml Neb) 0.5 mg INH RTBID BELKYS Sodium Chloride (Normal Saline 0.9%) 1,000 mls @ 100 mls/hr IV .Q10H BELKYS Stop: 07/25/20 17:59 Last Admin: 07/25/20 09:26 Dose: 100 mls/hr Documented by: Ketorolac Tromethamine (Ketorolac 15 Mg/Ml Vial) 15 mg IVP Q6HR PRN PRN Reason: PAIN Stop: 07/29/20 23:26 Last Admin: 07/25/20 09:26 Dose: 15 mg Documented by: Lidocaine (Lidocaine Patch 5%) 1 patch TOP DAILY PRN PRN Reason: PAIN Last Admin: 07/25/20 09:29 Dose: 1 patch Documented by: Morphine Sulfate (Morphine 2 Mg/Ml Carpuject) 2 mg IVP Q2HR PRN PRN Reason: PAIN Non-Formulary Medication (Azelastine Hcl [Azelastine Hcl]) 2 sprays INH BID BELKYS Ondansetron HCl (Ondansetron 4 Mg/2 Ml Vial) 4 mg IVP Q6HR PRN PRN Reason: Nausea / Vomiting Oxycodone HCl (Oxycodone 5 Mg Tablet) 5 mg PO Q4HR PRN PRN Reason: PAIN Last Admin: 07/25/20 11:50 Dose: 5 mg Documented by: Pantoprazole Sodium (Pantoprazole 40 Mg Tablet) 40 mg PO QDAC [facility] Last Admin: 07/25/20 06:15 Dose: 40 mg Documented by: Polyethylene Glycol (Polyethylene Glycol 3350 17 Gm Packet) 17 gm PO DAILY [facility] Sodium Chloride (Sodium Chloride Flush 0.9% 10 Ml Syringe) 10 ml IVP PRN PRN PRN Reason: NEEDED PER PROVIDER ORDERS Sodium Chloride (Sodium Chloride Flush 0.9% 10 Ml Syringe) 10 ml IVP 0100,0900, 1700 [facility] Last Admin: 07/25/20 09:26 Dose: 10 ml Documented by: Albuterol Sulfate [Proair Hfa Inhaler] 8.5 gm IH Q4H PRN 10/23/15 Azelastine HCl 2 sprays INH BID 12/31/18 Cholecalciferol (Vitamin D3) [Vitamin D3] 25 mcg ORAL DAILY 12/31/18 Magnesium Oxide [Magnesium] 500 mg ORAL DAILY 12/31/18 Mometasone/Formoterol [Dulera 200 Mcg-5 Mcg Inhaler] 1 puffs INH BID 12/31/18 Pravastatin Sodium 20 mg PO QPM 12/31/18 Multivit-Min/FA/Lycopen/Lutein [Centrum Silver Men Tablet] 1 each PO DAILY 07/18/20 Losartan [Cozaar] 50 mg PO DAILY 07/25/20 hydroCHLOROthiazide [Hydrodiuril] 25 mg PO DAILY 07/25/20
[2020-07-25] MEDS: BUDESONIDE 0.5 MG/2 ML NEB INH SCH (17:50)
[2020-07-25] MEDS ORDERED: FORMOTEROL INH SCH (21:00)
[2020-07-25] MEDS ORDERED: [UNRECOGNIZED DRUG - OTHER] INH SCH (21:00)
[2020-07-25] MEDS ORDERED: MOMETASONE INH SCH (21:00)
[2020-07-25] MEDS: PUMP INH SCH (21:04)
[2020-07-25] MEDS: AZELASTINE HCL 137 MCG/0.137 ML INH SCH (21:04)
[2020-07-25 21:18] LABS: CALCIUM 7.9 mg/dL (8.5-10.3); CREATININE 1.2 mg/dL (0.6-1.2)
[2020-07-25] MEDS ORDERED: SODIUM CHLORIDE 1 GM TABLET PO ONE (21:24)
[2020-07-26] MEDS: SODIUM CHLORIDE FLUSH 0.9% 10 ML SYRINGE IVP SCH ×3 (04:29→16:15)
[2020-07-26 05:28] LABS: BASOPHILS # (AUTO) 0.1 10^3/uL (0.0-0.1); BASOPHILS % (AUTO) 0.9 %; EOSINOPHILS # (AUTO) 0.4 10^3/uL (0.0-0.7); EOSINOPHILS % (AUTO) 5.7 %; LYMPHOCYTES # (AUTO) 1.6 10^3/uL (1.5-3.5); LYMPHOCYTES % (AUTO) 21.8 %; MEAN CORPUSCULAR HEMOGLOBIN 29.9 pg (27.0-31.0); MEAN CORPUSCULAR HGB CONC 33.7 g/dL (32.0-36.0); MEAN CORPUSCULAR VOLUME 88.8 fL (80.0-94.0); MEAN PLATELET VOLUME 8.3 fL (7.4-11.4); MONOCYTES # (AUTO) 1.3 10^3/uL (0.0-1.0); MONOCYTES % (AUTO) 17.4 %; NEUTROPHILS # (AUTO) 3.9 10^3/uL (1.5-6.6); NEUTROPHILS % (AUTO) 52.4 %; PLT - PLATELET COUNT 303 10^3/uL (130-450); RED BLOOD COUNT 4.01 10^6/uL (4.70-6.10); RED CELL DISTRIBUTION WIDTH 12.4 % (12.0-15.0); WHITE BLOOD COUNT 7.4 x10^3/uL (4.8-10.8)
[2020-07-26 05:40] LABS: CALCIUM 8.6 mg/dL (8.5-10.3)
[2020-07-26] MEDS: PANTOPRAZOLE 40 MG TABLET PO SCH (06:11)
[2020-07-26] MEDS: SODIUM CHLORIDE 0.9% 1,000 ML IV SCH ×2 (06:11→17:30)
[2020-07-26] MEDS: BUDESONIDE 0.5 MG/2 ML NEB INH SCH ×2 (07:53→19:40)
[2020-07-26] MEDS: oxyCODONE 5 MG TABLET PO PRN (08:12)
[2020-07-26] MEDS: KETOROLAC 15 MG/ML VIAL IVP PRN ×2 (08:13→17:26)
[2020-07-26] MEDS: polyethylene glycoL 3350 17 GM PACKET PO SCH (08:16)
[2020-07-26] MEDS: AZELASTINE HCL 137 MCG/0.137 ML INH SCH ×2 (08:18→20:19)
[2020-07-26] MEDS: PUMP INH SCH ×2 (08:18→20:19)
[2020-07-26 10:11] LABS: CALCIUM 8.3 mg/dL (8.5-10.3); CREATININE 1.1 mg/dL (0.6-1.2)
[2020-07-26] MEDS ORDERED: MAGNESIUM CITRATE 296 ML BOTTLE PO ONE (14:17)
--- NOTE | 2020-07-26 14:33 | PROVIDER PROGRESS NOTE ---
Assessment/Plan - Problem List (1) Orthostatic hypotension Assessment/Plan: 07/26, Improved, pt had 144/57, HR 56 at supine position, 122/60 HR 79 at standing position, Patient feel dizziness is also reduced. Patient's TSH, cortisol level are all in the normal range. Continue hydration with IVF of NS, stocking and compression, Education for patient prevention of fall, encourage patient stand slowly and walk slowly. PT is sign off for patient. Patient Had significantly orthostatic hypotension With a symptomatic dizzy when the patient stand up. We will hold patient home blood pressure medicine, Keep patient hydration with IVF, patient for stocking and compression, We will check TSH and cortisol in the morning and in the evening. We will educate the patient slowly stand, And prevention of fall. (2) Hyponatremia Conclusion/Plan: 07/26, Improved, patient sodium is 127 today, Urine sodium level is 62. We will keep regular diet, Patient's TSH and cortisol level are all in the normal range. supplement of sodium pill, Continue laboratory immunologist, Advised the patient follow-up commercial solar sales consultant as outpatient If continue clinically indicated. Patient had a CAT scan of pelvic, it is unremarkable for kidneys. Patient has a chronic hyponatremia, today's sodium 123, Slightly improved from 120 at admission, we will hold the patient home medication HCTZ, continue laboratory immunologist, start with the patient intravenous normal saline IV fluids. It is more likely hypovolemia with hyponatremia. will order cortisol, and total urine osmolality. (3) HTN (hypertension) Conclusion/Plan: we hold pt's blood pressure meds, continue vital sign monitor now (4) Dehydration Conclusion/Plan: Patient had slightly elevated BUN, We will give patient intravenous IV fluids, continue laboratory immunologist (5) Asthma Conclusion/Plan: Patient has history of asthma but not asthma exacerbation, we will resume albuterol as needed (6) Chronic back pain Conclusion/Plan: 07/26 CAT scan of pelvis Show no acute fracture or dislocation, spine moderate Degenerative disease. Patient report he has normal urination and bowel movement pattern, no any acute change. Continue pain control. Patient reported he has chronic back pain and complain back pain now, will give pain medication as needed. 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 pt was recommended to see neurosurgeon but pt report he still did not see yet. advise pt see neurosurgeon as out-pt. will check cortisol, TSH, urinary sodium and total urine osmolality - Current Meds Current Meds: Current Medications Generic Name Dose Route Start Last Admin Trade Name Jonah PRN Reason Stop Dose Admin Acetaminophen 650 mg 07/24/20 21:50 07/25/20 09:26 Acetaminophen 325 Mg Tablet PO 650 mg Q4HR PRN Administration Pain 1 to 4 Budesonide 0.5 mg 07/25/20 17:00 07/26/20 07:53 Budesonide 0.5 Mg/2 Ml Neb INH 0.5 mg RTBID BELKYS Administration Sodium Chloride 1,000 mls @ 100 mls/hr 07/25/20 20:00 07/26/20 06:11 Normal Saline 0.9% IV 100 mls/hr .Q10H [facility] Administration Ketorolac Tromethamine 15 mg 07/24/20 23:27 07/26/20 08:13 Ketorolac 15 Mg/Ml Vial IVP 07/29/20 23:26 15 mg Q6HR PRN Administration PAIN Lidocaine 1 patch 07/24/20 23:47 07/25/20 09:29 Lidocaine Patch 5% TOP 1 patch DAILY PRN Administration PAIN Non-Formulary Medication 2 sprays 07/25/20 21:00 07/26/20 08:18 Azelastine Hcl [Azelastine Hcl] INH Not Given BID BELK[facility] Oxycodone HCl 5 mg 07/24/20 23:28 07/26/20 08:12 Oxycodone 5 Mg Tablet PO 5 mg Q4HR PRN Administration PAIN Pantoprazole Sodium 40 mg 07/25/20 07:00 07/26/20 06:11 Pantoprazole 40 Mg Tablet PO 40 mg QDAC [facility] Administration Polyethylene Glycol 17 gm 07/26/20 09:00 07/26/20 08:16 Polyethylene Glycol 3350 17 Gm Packet PO 17 gm DAILY BELKYS Administration Sodium Chloride 10 ml 07/25/20 01:00 07/26/20 08:06 Sodium Chloride Flush 0.9% 10 Ml Syringe IVP Not Given 0100,0900,1700 [facility] - Lab Result Fish Bone Diagrams: 07/26/20 04:59 07/26/20 09:55 - Additional Planning My Orders: My Active Orders 07/25/20 15:41 Nebulizer/MDI Tx. [RC] .BID Resp Teach Nebulizer/MDI [RC] .ONCE Albuterol 2.5 mg INH RTQ4H PRN 07/25/20 15:53 Alberto Hose and Compression Devic [RC] Q8H 07/25/20 17:00 Budesonide [Pulmicort] 0.5 mg INH RTBID 07/25/20 17:10 OSMOLALITY URINE [REFLAB] Routine 07/25/20 21:00 Azelastine HCl [Azelastine HCl] 2 sprays INH BID 07/26/20 14:30 Admit [Admit \ Transfer \ Status] [RC] .ONCE 07/27/20 05:00 CBC - COMP BLD CT W/AUTO DIFF [HEME] DAILYLAB MAGNESIUM [CHEM] DAILYLAB PHOSPHORUS [CHEM] DAILYLAB 07/28/20 05:00 CBC - COMP BLD CT W/AUTO DIFF [HEME] DAILYLAB 07/29/20 05:00 CBC - COMP BLD CT W/AUTO DIFF [HEME] DAILYLAB 07/30/20 05:00 CBC - COMP BLD CT W/AUTO DIFF [HEME] DAILYLAB Subjective - Subjective Patient Reports: Feeling Better Objective Vital Signs: Vital Signs - 24 hr 07/25/20 07/25/20 07/25/20 15:57 17:50 20:19 Temperature 36.5 C 36.3 C L Heart Rate 65 Heart Rate [ 60 65 Brachial] Respiratory 16 12 20 Rate Blood Pressure 130/58 L 164/68 H [Left Brachial artery] O2 Saturation 96 97 07/25/20 07/26/20 07/26/20 23:54 04:53 07:53 Temperature 36.7 C 36.8 C Heart Rate 62 Heart Rate [ 68 62 Brachial] Respiratory 16 16 18 Rate Blood Pressure 177/77 H 166/69 H [Left Brachial artery] O2 Saturation 96 96 07/26/20 07/26/20 08:42 13:20 Temperature 36.5 C 36.2 C L Heart Rate Heart Rate [ 67 56 L Brachial] Respiratory 16 16 Rate Blood Pressure 134/52 H 144/56 H [Left Brachial artery] O2 Saturation 94 98 Oxygen O2 Source Room air I&O (Last 24 Hrs): Intake and Output Totals x24h 07/24/20 07/25/20 07/26/20 23:59 23:59 23:59 Intake Total 1000 3900 1600 Output Total 150 2045 1025 Balance 850 1855 575 General: Alert, Oriented x3, Cooperative, No acute distress HEENT: Atraumatic Neck: Supple Lymphatic: no adenopathy Neuro: Alert, Non Focal, Oriented Times 3 Cardiovascular: Regular rate, Normal S1, Normal S2 Respiratory: Chest non-tender, No respiratory distress, Breath sounds nml Abdomen: Normal bowel sounds, Soft, No tenderness Extremities: Normal pulses - Results Results: Laboratory Results WBC 7.4 x10^3/uL (4.8-10.8) 07/26/20 04:59 RBC 4.01 10^6/uL (4.70-6.10) L 07/26/20 04:59 Hgb 12.0 g/dL (14.0-18.0) L 07/26/20 04:59 Hct 35.6 % (42.0-52.0) L 07/26/20 04:59 MCV 88.8 fL (80.0-94.0) 07/26/20 04:59 MCH 29.9 pg (27.0-31.0) 07/26/20 04:59 MCHC 33.7 g/dL (32.0-36.0) 07/26/20 04:59 RDW 12.4 % (12.0-15.0) 07/26/20 04:59 Plt Count 303 10^3/uL (130-450) 07/26/20 04:59 MPV 8.3 fL (7.4-11.4) 07/26/20 04:59 Neut # (Auto) 3.9 10^3/uL (1.5-6.6) 07/26/20 04:59 Lymph # (Auto) 1.6 10^3/uL (1.5-3.5) 07/26/20 04:59 Delta # (Auto) 1.3 10^3/uL (0.0-1.0) H 07/26/20 04:59 Eos # (Auto) 0.4 10^3/uL (0.0-0.7) 07/26/20 04:59 Baso # (Auto) 0.1 10^3/uL (0.0-0.1) 07/26/20 04:59 Absolute Nucleated RBC 0.00 x10^3/uL 07/26/20 04:59 Total Counted 100 07/25/20 04:35 Band Neuts % (Manual) 0 % (0-10) 07/25/20 04:35 Abnorm Lymph % (Manual) 0 % 07/25/20 04:35 Nucleated RBC % 0.0 /100WBC 07/26/20 04:59 Neutrophils # (Manual) 6.8 10^3/uL (1.5-6.6) H 07/25/20 04:35 Lymphocytes # (Manual) 1.6 10^3/uL (1.5-3.5) 07/25/20 04:35 Monocytes # (Manual) 0.9 10^3/uL (0.0-1.0) 07/25/20 04:35 Eosinophils # (Manual) 0.1 10^3/uL (0-0.7) 07/25/20 04:35 Basophils # (Manual) 0.0 10^3/uL (0-0.1) 07/25/20 04:35 Differential Comment MANUAL DIFFERENTIAL 07/25/20 04:35 WBC Morphology NORMAL APPEARANCE (NORMAL) 07/25/20 04:35 Platelet Estimate NORMAL (130-450,000) (NORMAL) 07/25/20 04:35 Platelet Morphology NORMAL APPEARANCE (NORMAL) 07/25/20 04:35 RBC Morph Micro Appear NORMAL APPEARANCE (NORMAL) 07/25/20 04:35 Sodium 126 mmol/L (135-145) L 07/26/20 09:55 Potassium 4.2 mmol/L (3.5-5.0) 07/26/20 09:55 Chloride 96 mmol/L (101-111) L 07/26/20 09:55 Carbon Dioxide 19 mmol/L (21-32) L 07/26/20 09:55 Anion Gap 11.0 (6-13) 07/26/20 09:55 BUN 27 mg/dL (6-20) H 07/26/20 09:55 Creatinine 1.1 mg/dL (0.6-1.2) 07/26/20 09:55 Estimated GFR (MDRD) 64 (>89) L 07/26/20 09:55 Glucose 106 mg/dL (70-100) H 07/26/20 09:55 Calcium 8.3 mg/dL (8.5-10.3) L 07/26/20 09:55 Total Bilirubin 0.7 mg/dL (0.2-1.0) 07/24/20 20:35 AST 64 IU/L (10-42) H 07/24/20 20:35 ALT 49 IU/L (10-60) 07/24/20 20:35 Alkaline Phosphatase 95 IU/L (42-121) 07/24/20 20:35 Troponin I High Sens 9.7 ng/L (2.3-19.7) 07/24/20 20:35 Total Protein 7.2 g/dL (6.7-8.2) 07/24/20 20:35 Albumin 3.6 g/dL (3.2-5.5) 07/24/20 20:35 Globulin 3.6 g/dL (2.1-4.2) 07/24/20 20:35 Albumin/Globulin Ratio 1.0 (1.0-2.2) 07/24/20 20:35 Lipase 16 U/L (22-51) L 07/24/20 20:35 TSH 4.09 uIU/mL (0.34-5.60) 07/26/20 04:59 Cortisol AM Sample 11.2 ug/dL 07/26/20 04:59 Cortisol PM Sample 6.4 ug/dL 07/25/20 20:24 Urine Color YELLOW 07/24/20 21:18 Urine Clarity CLEAR (CLEAR) 07/24/20 21:18 Urine pH 7.0 PH (5.0-7.5) 07/24/20 21:18 Ur Specific [place] 1.015 (1.002-1.030) 07/24/20 21:18 Urine Protein NEGATIVE mg/dL (NEGATIVE) 07/24/20 21:18 Urine Glucose (UA) NEGATIVE mg/dL (NEGATIVE) 07/24/20 21:18 Urine Ketones 15 mg/dL (NEGATIVE) H 07/24/20 21:18 Urine Occult Blood NEGATIVE (NEGATIVE) 07/24/20 21:18 Urine Nitrite NEGATIVE (NEGATIVE) 07/24/20 21:18 Urine Bilirubin NEGATIVE (NEGATIVE) 07/24/20 21:18 Urine Urobilinogen 1 (NORMAL) E.U./dL (NORMAL) 07/24/20 21:18 Ur Leukocyte Esterase NEGATIVE (NEGATIVE) 07/24/20 21:18 Ur Microscopic Review NOT INDICATED 07/24/20 21:18 Urine Culture Comments NOT INDICATED 07/24/20 21:18 Urine Sodium 62.0 mmol/L 07/25/20 17:10 Nasal Adenovirus (PCR) NOT DETECTED 07/24/20 22:22 Nasal B. parapertussis DNA (PCR) NOT DETECTED 07/24/20 22:22 Nasal Coronavir 229E PCR NOT DETECTED 07/24/20 22:22 Nasal Coronavir HKU1 PCR NOT DETECTED 07/24/20 22:22 Nasal Coronavir NL63 PCR NOT DETECTED 07/24/20 22:22 Nasal Coronavir OC43 PCR NOT DETECTED 07/24/20 22:22 Nasal Enterovir/Rhinovir PCR NOT DETECTED 07/24/20 22:22 Nasal Influenza B PCR NOT DETECTED 07/24/20 22:22 Nasal Influenza A PCR NOT DETECTED 07/24/20 22:22 Nasal Parainfluen 1 PCR NOT DETECTED 07/24/20 22:22 Nasal Parainfluen 2 PCR NOT DETECTED 07/24/20 22:22 Nasal Parainfluen 3 PCR NOT DETECTED 07/24/20 22:22 Nasal Parainfluen 4 PCR NOT DETECTED 07/24/20 22:22 Nasal RSV (PCR) NOT DETECTED 07/24/20 22:22 Nasal B.pertussis DNA PCR NOT DETECTED 07/24/20 22:22 Nasal C.pneumoniae (PCR) NOT DETECTED 07/24/20 22:22 Jordan Human Metapneumo PCR NOT DETECTED 07/24/20 22:22 Nasal M.pneumoniae (PCR) NOT DETECTED 07/24/20 22:22 Nasal SARS-CoV-2 (PCR) NOT DETECTED 07/24/20 22:22 - Procedures Procedures: Procedures DRAINAGE OF R FINGER PHALANX JT, OPEN APPROACH, DIAGN (10/24/15) INSERTION OF INFUSION DEV INTO SUP VENA CAVA, PERC APPROACH (10/24/15) ABX Reporting Has patient been on IV antibiotics over the past 48 hours?: No Current Medications - Current Medications Current Medications: Active Medications Acetaminophen (Acetaminophen 325 Mg Tablet) 650 mg PO Q4HR PRN PRN Reason: Pain 1 to 4 Last Admin: 07/25/20 09:26 Dose: 650 mg Documented by: Albuterol (Albuterol Neb 2.5 Mg/3 Ml) 2.5 mg INH RTQ4H PRN PRN Reason: Wheezing Budesonide (Budesonide 0.5 Mg/2 Ml Neb) 0.5 mg INH RTBID [facility] Last Admin: 07/26/20 07:53 Dose: 0.5 mg Documented by: Sodium Chloride (Normal Saline 0.9%) 1,000 mls @ 100 mls/hr IV .Q10H [facility] Last Admin: 07/26/20 06:11 Dose: 100 mls/hr Documented by: Ketorolac Tromethamine (Ketorolac 15 Mg/Ml Vial) 15 mg IVP Q6HR PRN PRN Reason: PAIN Stop: 07/29/20 23:26 Last Admin: 07/26/20 08:13 Dose: 15 mg Documented by: Lidocaine (Lidocaine Patch 5%) 1 patch TOP DAILY PRN PRN Reason: PAIN Last Admin: 07/25/20 09:29 Dose: 1 patch Documented by: Morphine Sulfate (Morphine 2 Mg/Ml Carpuject) 2 mg IVP Q2HR PRN PRN Reason: PAIN Non-Formulary Medication (Azelastine Hcl [Azelastine Hcl]) 2 sprays INH BID [facility] Last Admin: 07/26/20 08:18 Dose: Not Given Documented by: Ondansetron HCl (Ondansetron 4 Mg/2 Ml Vial) 4 mg IVP Q6HR PRN PRN Reason: Nausea / Vomiting Oxycodone HCl (Oxycodone 5 Mg Tablet) 5 mg PO Q4HR PRN PRN Reason: PAIN Last Admin: 07/26/20 08:12 Dose: 5 mg Documented by: Pantoprazole Sodium (Pantoprazole 40 Mg Tablet) 40 mg PO QDAC [facility] Last Admin: 07/26/20 06:11 Dose: 40 mg Documented by: Polyethylene Glycol (Polyethylene Glycol 3350 17 Gm Packet) 17 gm PO DAILY [facility] Last Admin: 07/26/20 08:16 Dose: 17 gm Documented by: Senna (Senna 8.6 Mg Tablet) 8.6 mg PO DAILY [facility] Sodium Chloride (Sodium Chloride Flush 0.9% 10 Ml Syringe) 10 ml IVP PRN PRN PRN Reason: NEEDED PER PROVIDER ORDERS Sodium Chloride (Sodium Chloride Flush 0.9% 10 Ml Syringe) 10 ml IVP 0100,0900,1700 [facility] Last Admin: 12/23/20 08:06 Dose: Not Given Documented by: Albuterol Sulfate [Proair Hfa Inhaler] 8.5 gm IH Q4H PRN 10/23/15 Azelastine HCl 2 sprays INH BID 12/31/18 Cholecalciferol (Vitamin D3) [Vitamin D3] 25 mcg ORAL DAILY 12/31/18 Magnesium Oxide [Magnesium] 500 mg ORAL DAILY 12/31/18 Mometasone/Formoterol [Dulera 200 Mcg-5 Mcg Inhaler] 1 puffs INH BID 12/31/18 Pravastatin Sodium 20 mg PO QPM 12/31/18 Multivit-Min/FA/Lycopen/Lutein [Centrum Silver Men Tablet] 1 each PO DAILY 07/18/20 Losartan [Cozaar] 50 mg PO DAILY 07/25/20 hydroCHLOROthiazide [Hydrodiuril] 25 mg PO DAILY 07/25/20
[2020-07-26] MEDS: SENNA 8.6 MG TABLET PO SCH (16:13)
[2020-07-26] MEDS: ALBUTEROL NEB 2.5 MG/3 ML INH PRN (19:40)
[2020-07-26] MEDS: NYSTATIN POWDER 15 GM TOP SCH (20:14)
[2020-07-27] MEDS: SODIUM CHLORIDE FLUSH 0.9% 10 ML SYRINGE IVP SCH ×2 (01:18→09:11)
[2020-07-27] MEDS: SODIUM CHLORIDE 0.9% 1,000 ML IV SCH (03:03)
[2020-07-27 05:40] LABS: BASOPHILS # (AUTO) 0.1 10^3/uL (0.0-0.1); BASOPHILS % (AUTO) 1.2 %; EOSINOPHILS # (AUTO) 0.4 10^3/uL (0.0-0.7); EOSINOPHILS % (AUTO) 5.7 %; LYMPHOCYTES # (AUTO) 1.4 10^3/uL (1.5-3.5); LYMPHOCYTES % (AUTO) 22.1 %; MEAN CORPUSCULAR HEMOGLOBIN 30.5 pg (27.0-31.0); MEAN CORPUSCULAR HGB CONC 33.3 g/dL (32.0-36.0); MEAN CORPUSCULAR VOLUME 91.4 fL (80.0-94.0); MEAN PLATELET VOLUME 8.2 fL (7.4-11.4); MONOCYTES % (AUTO) 15.6 %; NEUTROPHILS # (AUTO) 3.5 10^3/uL (1.5-6.6); PLT - PLATELET COUNT 259 10^3/uL (130-450); RED BLOOD COUNT 3.94 10^6/uL (4.70-6.10); RED CELL DISTRIBUTION WIDTH 12.8 % (12.0-15.0); WHITE BLOOD COUNT 6.5 x10^3/uL (4.8-10.8)
[2020-07-27 05:57] LABS: CALCIUM 8.3 mg/dL (8.5-10.3); CREATININE 0.8 mg/dL (0.6-1.2); MAGNESIUM 2.2 mg/dL (1.7-2.8)
[2020-07-27] MEDS: PANTOPRAZOLE 40 MG TABLET PO SCH (06:14)
[2020-07-27] MEDS: BUDESONIDE 0.5 MG/2 ML NEB INH SCH (07:30)
[2020-07-27] MEDS: ALBUTEROL NEB 2.5 MG/3 ML INH PRN (07:30)
[2020-07-27] MEDS ORDERED: SENNA 8.6 MG TABLET PO SCH (09:00)
[2020-07-27] MEDS: oxyCODONE 5 MG TABLET PO PRN (09:10)
[2020-07-27] MEDS: polyethylene glycoL 3350 17 GM PACKET PO SCH (09:10)
[2020-07-27] MEDS: SENNA 8.6 MG TABLET PO SCH (09:10)
[2020-07-27] MEDS: NYSTATIN POWDER 15 GM TOP SCH (09:13)
[2020-07-27] MEDS: AZELASTINE HCL 137 MCG/0.137 ML INH SCH (09:13)
[2020-07-27] MEDS: PUMP INH SCH (09:13)
[2020-07-27] MEDS: LIDOCAINE PATCH 5% TOP PRN (09:13)
--- NOTE | 2020-07-27 11:32 | Discharge Plan ---
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 your home blood pressure is hold now, advise you keep hydration, and standup slowly and walk slowly to prevent of fall. you has hx of chronic hyponatremia, now your sodium level is significantly improved. advise you eat regular diet, you may followup with sales lead if continue to have this medical issue. advise you followup with your PCP to have a plan to continue management of your chronic back pain. 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 Assessment: discuss the care plan with you, you understood and agreed. Additional Instructions or Follow Up instructions: you may followup with your PCP in one week, followup neurosurgeon as out-pt. Should your symptoms Return or worsen, you may present to ER call 911 for help Follow-Up Care: Outpatient Rehab - PT No Smoking: If you smoke, Please STOP! Call for help. Follow-up with: Kenneth Arceo MD [Primary Care Provider] -
--- NOTE | 2020-07-27 11:50 | DISCHARGE SUMMARY ---
Discharge Summary Admit Date: 07/24/20 Discharge Date: 07/27/20 Discharging Provider: Yasmany Dela Cruz Primary Care Provider: Kenneth Cortez Condition at Discharge: Stable Discharge Disposition: 01 Home, Self Care Discharge Facility Name: home - DIAGNOSES Discharge Diagnoses with Status of Each Condition: (1) Orthostatic hypotension Improved significantly. Patient reported he does not feel dizziness or vertigo when he tried to stand up. Patient's home blood pressure medicine is on hold. Educated patient on the prevention of fall. Advised patient keep hydration, Follow-up outpatient physical therapist. (2) Hyponatremia Return patient baseline, patient has sodium 129 today. Patient had chronic hypon atremia, advised patient follow-up assistant community director as needed. (3) HTN (hypertension) hold pt's blood pressure meds now, Follow-up with his PCP continue management (4) Dehydration Resolved, advised patient keep hydration at home (5) Asthma stable (6) Chronic back pain CAT scan of pelvis Show no acute fracture or dislocation, spine moderate Degenerative disease. Patient report he has normal urination and bowel movement pattern, no any acute change. 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 pt was recommended to see neurosurgeon in the past but pt report he still did not see yet. advise pt see neurosurgeon as out-pt. - HPI History of Present Illness: refer from Dr. Ascencio's HPI on 07/24/2020 Patient is an 85-year-old male who was recently admitted to the hospital on July 18, 2020 for syncope and hyponatremia. His work-up at that time included a 2D echo which was unremarkable. He had preserved left ventricular systolic function with ejection fraction of 60 to 65%. Mild concentric left ventricular hypertrophy was noted. There was no regional wall abnormality. He was given IV hydration and subsequently discharged. Even prior to that exam he had been experiencing back pain. He presented to the ED today because his back pain had persisted and was getting worse. Work-up in the ED was largely unremarkable except for a sodium level of 120. Usually his sodium level is around 130. As part of his work-up orthostatic vitals were attempted. In the sitting position his systolic blood pressure was 151. Standing his blood pressure dropped to 69. He was experiencing dizziness at the time. As a result he was presented for admission for further treatment. He was given 1 L of normal saline in the ED. He was supposed to be working with physical therapy in the outpatient setting however he is here to start. Last week he was admitted in the hospital and has not had an appointment with them since. On a separate note he mentions dental infection for which his dentist put him on Augmentin. At bedside he denies dizziness, chest pain, dyspnea, abdominal pain, nausea, vomiting, fever or chills. He complains of significant back pain. He states that he would like to get back to the state where he was not dependent on a walker. He does not have saddle anesthesia, weakness or tingling in his legs. The option of going to a snf facility for rehab had been proposed to him and his however his is adamant that he will not go to a fci. - HOSPITAL COURSE Hospital Course: Patient was admitted for worsening his chronic back pain. CAT scan of pelvis Show no acute fracture or dislocation, spine moderate Degenerative disease. Patient report he has normal urination and bowel movement pattern, no any acute change. Patient was also found to have orthostatic hypotension and worsening of his hyponatremia. Patient's serum cortisol, TSH is in the normal range. Patient's home blood pressure medicine was hold, patient was given intravenous IV fluids for his dehydration. Patient's orthostatic hypotension was improved. Patient had sodium 129 and improved. Patient was advised to follow-up with PCP to continue management of his chronic back pain. - ALLERGIES Allergies/Adverse Reactions: Allergies Allergy/AdvReac Type Severity Reaction Status Date / Time ciprofloxacin Allergy Unknown Verified 07/24/20 17:57 metronidazole [From Flagyl] Allergy Unknown Verified 07/24/20 17:57 Quinolones Allergy Unknown Verified 07/24/20 17:57 simvastatin Allergy Unknown Verified 07/24/20 17:57 - MEDICATIONS Home Medications: Ambulatory Orders Medication Instructions Recorded Confirmed Albuterol Sulfate [Proair Hfa 8.5 gm IH Q4H PRN 10/23/15 07/25/20 Inhaler] Azelastine HCl 2 sprays INH BID 12/31/18 07/25/20 Cholecalciferol (Vitamin D3) 25 mcg ORAL DAILY 12/31/18 07/25/20 [Vitamin D3] Magnesium Oxide [Magnesium] 500 mg ORAL DAILY 12/31/18 07/25/20 Mometasone/Formoterol [Dulera 200 1 puffs INH BID 12/31/18 07/25/20 Mcg-5 Mcg Inhaler] Pravastatin Sodium 20 mg PO QPM 12/31/18 07/25/20 Multivit-Min/FA/Lycopen/Lutein 1 each PO DAILY 07/18/20 07/25/20 [Centrum Silver Men Tablet] Lidocaine Patch 5% [Lidoderm Patch] 1 patch TOP DAILY PRN #7 patch 07/27/20 oxyCODONE [Roxicodone] 10 mg PO Q6H PRN #40 tablet 07/27/20 - PHYSICAL EXAM AT DISCHARGE General Appearance: positive: No acute distress, Alert. negative: Lethargic Eyes Bilateral: positive: Normal inspection, PERRL, No lid inflammation ENT: positive: ENT inspection nml, No signs of dehydration. negative: Purulent nasal drainage Neck: positive: Nml inspection, Trachea midline. negative: Thyromegaly, Tracheal deviation Respiratory: positive: Chest non-tender, No respiratory distress, Breath sounds nml. negative: Wheezes, Rales, Rhonchi Cardiovascular: positive: Regular rate & rhythm, No murmur. negative: Tachycardia, Bradycardia, Systolic murmur, Diastolic murmur Peripheral Pulses: positive: 2+ Abdomen: positive: Non-tender, Nml bowel sounds, No distention. negative: Tenderness, Guarding, Rebound Back: positive: Nml inspection. negative: CVA tenderness (R), CVA tenderness (L) Skin: positive: Color nml, Warm, Dry. negative: Cyanosis, Diaphoresis, Pallor Extremities: positive: Non-tender, Full ROM, Nml appearance. negative: Calf tenderness Neurologic/Psychiatric: positive: Oriented x3, Motor nml, Sensation nml, Mood/affect nml. negative: Weakness, Sensory loss, Facial droop, Slurred/abnml speech, Depressed mood/affect - LABS Result Diagrams: 07/27/20 05:18 07/27/20 05:18 - FOLLOW UP Follow Up: orthostatic hypotension has improved. your home blood pressure is hold now, advise you keep hydration, and standup slowly and walk slowly to prevent of fall. you has hx of chronic hyponatremia, now your sodium level is significantly improved. advise you eat regular diet, you may followup with assistant community director if continue to have this medical issue. advise you followup with your PCP to have a plan to continue management of your chronic back pain. 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 Should your symptoms Return or worsen, you may present to ER call 911 for help - TIME SPENT Time Spent in Discharge (Minutes): 30
[2020-07-27 12:18] VITALS: BP 150/62
== END 2020-07-27 12:30 | disposition home or self-care (01) | DRG 312 ==
LOC: EDUNIT# → ED 17:50 → MS2 21:50 → OBS 07-25 08:10 → MS2 07-25 08:17 → OBSVTOIN 07-26 14:30
PROVIDERS: ADMIT Internal Medicine; ATTEND Nurse Practitioner Gerontology
DX: I95.1 Orthostatic hypotension (principal); E87.1 Hypo-osmolality and hyponatremia; E86.0 Dehydration; M54.5 Low back pain; G89.29 Other chronic pain; I10 Essential (primary) hypertension; J45.909 Unspecified asthma, uncomplicated; E23.7 Disorder of pituitary gland, unspecified; K21.9 Gastro-esophageal reflux disease without esophagitis; E78.00 Pure hypercholesterolemia, unspecified; R32 Unspecified urinary incontinence; R35.1 Nocturia; Z79.51 Long term (current) use of inhaled steroids; Z91.81 History of falling; Z79.899 Other long term (current) drug therapy
CPT/HCPCS: 36415; 71045; 72192; 80048; 80053; 81003; 82533; 83690; 83735; 83935; 84100; 84300; 84443; 84484; 85025; 87631; 93005; 94640; 96361; 96374; 96376; 97161; 97165; 97530; 99284; 99285; A9270; G0378; J7626; 0202U; 81001; 87086

== ENCOUNTER 2020-08-14 14:58 | Outpatient (CLI) | payer MEDICARE ==
[2020-08-14 16:21] LABS: PROLACTIN 11.06 ng/mL
[2020-08-14 16:44] LABS: FOLLICLE STIMULATING HORMONE 39.09 mIU/mL
[2020-08-14 16:45] LABS: LUTEINIZING HORMONE 13.72 mIU/mL
== END 2020-08-14 14:59 | disposition home or self-care (01) ==
LOC: LAB 14:58
PROVIDERS: ATTEND Family Medicine
DX: E87.1 Hypo-osmolality and hyponatremia (principal); D35.2 Benign neoplasm of pituitary gland
CPT/HCPCS: 36415; 82024; 83001; 83002; 84146

== ENCOUNTER 2020-08-16 10:50 | Outpatient (CLI) | payer MEDICARE | END 2020-08-16 23:59 | disposition home or self-care (01) | LOC: LAB.WCP 10:50 | PROVIDERS: ATTEND Family Medicine | DX: E87.1 Hypo-osmolality and hyponatremia (principal); D35.2 Benign neoplasm of pituitary gland | CPT/HCPCS: 81599; 82530 ==

== ENCOUNTER 2020-08-18 20:40 | Outpatient (CLI) | payer MEDICARE | END 2020-08-18 20:41 | disposition critical access hospital (66) | LOC: EMS 20:40 | PROVIDERS: ATTEND Surgery | DX: R06.2 Wheezing (principal); M54.9 Dorsalgia, unspecified | CPT/HCPCS: A0425; A0427 ==

== ENCOUNTER 2020-08-18 20:47 | Inpatient (IN) | payer MEDICARE ==
[2020-08-18] MEDS ORDERED: methylPREDNISolone SUCCINATE 125 MG/2 ML VIAL IVP STA (20:53)
[2020-08-18] MEDS ORDERED: IPRATROPIUM/ALBUTEROL 3 ML NEB INH STA (20:53)
[2020-08-18 21:06] LABS: BASOPHILS # (AUTO) 0.1 10^3/uL (0.0-0.1); BASOPHILS % (AUTO) 0.8 %; EOSINOPHILS # (AUTO) 0.3 10^3/uL (0.0-0.7); EOSINOPHILS % (AUTO) 3.7 %; HGB - HEMOGLOBIN 12.9 g/dL (14.0-18.0); LYMPHOCYTES # (AUTO) 1.7 10^3/uL (1.5-3.5); LYMPHOCYTES % (AUTO) 21.1 %; MEAN CORPUSCULAR HEMOGLOBIN 30.5 pg (27.0-31.0); MEAN CORPUSCULAR HGB CONC 34.4 g/dL (32.0-36.0); MEAN CORPUSCULAR VOLUME 88.7 fL (80.0-94.0); MEAN PLATELET VOLUME 8.4 fL (7.4-11.4); MONOCYTES # (AUTO) 1.1 10^3/uL (0.0-1.0); NEUTROPHILS # (AUTO) 4.8 10^3/uL (1.5-6.6); NEUTROPHILS % (AUTO) 59.8 %; PLT - PLATELET COUNT 365 10^3/uL (130-450); RED BLOOD COUNT 4.23 10^6/uL (4.70-6.10); WHITE BLOOD COUNT 7.9 x10^3/uL (4.8-10.8)
[2020-08-18 21:19] LABS: ALBUMIN 3.6 g/dL (3.2-5.5); ALBUMIN/GLOBULIN RATIO 1.1 (1.0-2.2); BILIRUBIN,TOTAL 0.6 mg/dL (0.2-1.0); CALCIUM 8.9 mg/dL (8.5-10.3); CREATININE 0.7 mg/dL (0.6-1.2); TOTAL PROTEIN 6.9 g/dL (6.7-8.2)
--- NOTE | 2020-08-18 21:19 | XRAY Report ---
PROCEDURE: Chest 1 View X-Ray INDICATIONS: Cough, wheezing TECHNIQUE: One view of the chest was acquired. COMPARISON: 07/24/2021 FINDINGS: Surgical changes and devices: None. Lungs and pleura: Small bilateral pleural effusions with overlying atelectasis versus consolidation. Increased interstitial markings in both lungs, predominantly in the perihilar regions. Cephalization of pulmonary vessels. Mediastinum: Mediastinal contours appear normal. Heart size is normal. Bones and chest wall: No suspicious bony lesions. Overlying soft tissues appear unremarkable. IMPRESSION: Moderate pulmonary edema with small bilateral pleural effusions, presumably a function of cardiogenic pulmonary edema. Reviewed by: Yehuda Willis MD on 08/18/2020 9:17 PM PST Approved by: Yehuda Willis MD on 08/18/2020 9:17 PM [facility] Station ID: [id number]
--- NOTE | 2020-08-18 21:24 | ED Physician Documentation ---
PD HPI DYSPNEA - Stated complaint Stated Complaint: WHEEZING/LOW BACK PX - Chief complaint Chief Complaint: Resp - History obtained from History obtained from: Patient - History of Present Illness Timing - onset: Today Timing - onset during: Rest Timing - duration: Hours Timing - details: Gradual onset, Still present Inciting event(s): Other (chronic back pain) Worsened by: Exertion, Laying flat Associated symptoms: Cough, Wheezing, Bilateral edema. No: Fever, Chest pain / discomfort Similar symptoms before: Diagnosis (COPD) Recently seen: Emergency Dept, Admitted - Additional information Additional information: 85-year-old male with a history of hypertension and COPD has had a recent compression fracture in his back over the past month and he has been on some narcotic pain reliever he is discontinued this about one week ago. Today he is developed acute shortness of breath and with wheezing that does not appear to respond to his albuterol. Review of Systems Constitutional: denies: Fever Eyes: denies: Decreased vision Ears: denies: Ear pain Nose: denies: Rhinorrhea / runny nose, Congestion Throat: denies: Sore throat Cardiac: reports: Pedal edema. denies: Chest pain / pressure, Palpitations Respiratory: reports: Dyspnea, Cough, Wheezing GI: denies: Abdominal Pain, Nausea, Vomiting : denies: Dysuria, Frequency Skin: denies: Rash Musculoskeletal: reports: Back pain, Extremity swelling. denies: Neck pain, Extremity pain Neurologic: denies: Generalized weakness, Focal weakness, Numbness, Difficulty speaking PD PAST MEDICAL HISTORY - Past Medical History Past Medical History: Yes Cardiovascular: Hypertension, High cholesterol Respiratory: Asthma Neuro: None Endocrine/Autoimmune: None GI: GERD, GI bleed : Nocturia HEENT: None Psych: None Musculoskeletal: Chronic back pain Derm: None - Past Surgical History Past Surgical History: Yes General: Cholecystectomy, Appendectomy HEENT: Cataracts, Tonsil/Adenoidectomy Derm: Skin cancer surgery - Present Medications Home Medications: Ambulatory Orders Medication Instructions Recorded Confirmed Albuterol Sulfate [Proair Hfa 8.5 gm IH Q4H PRN 10/23/15 07/25/20 Inhaler] Azelastine HCl 2 sprays INH BID 12/31/18 07/25/20 Cholecalciferol (Vitamin D3) 25 mcg ORAL DAILY 12/31/18 07/25/20 [Vitamin D3] Magnesium Oxide [Magnesium] 500 mg ORAL DAILY 12/31/18 07/25/20 Mometasone/Formoterol [Dulera 200 1 puffs INH BID 12/31/18 07/25/20 Mcg-5 Mcg Inhaler] Pravastatin Sodium 20 mg PO QPM 12/31/18 07/25/20 Multivit-Min/FA/Lycopen/Lutein 1 each PO DAILY 07/18/20 07/25/20 [Centrum Silver Men Tablet] Lidocaine Patch 5% [Lidoderm Patch] 1 patch TOP DAILY PRN #7 patch 07/27/20 oxyCODONE [Roxicodone] 10 mg PO Q6H PRN #40 tablet 07/27/20 - Allergies Allergies/Adverse Reactions: Allergies Allergy/AdvReac Type Severity Reaction Status Date / Time ciprofloxacin Allergy Unknown Verified 07/24/20 17:57 metronidazole [From Flagyl] Allergy Unknown Verified 07/24/20 17:57 Quinolones Allergy Unknown Verified 07/24/20 17:57 simvastatin Allergy Unknown Verified 07/24/20 17:57 - Social History Does the pt smoke?: No Smoking Status: Never smoker Does the pt drink ETOH?: Yes Does the pt have substance abuse?: No - Immunizations Immunizations are current?: Yes - POLST Patient has POLST: No POLST Status: Full Code PD ED PE NORMAL - Vitals Vital signs reviewed: Yes (Tachypneic with marked hypertension hypoxia on room air) - General General: Alert and oriented X 3, Other (dyspneic at rest with audible wheeze) - HEENT HEENT: Atraumatic, PERRL, EOMI - Neck Neck: Supple, no meningeal sign, No bony TTP - Cardiac Cardiac: RRR, No murmur, Other (distant heart sounds) - Respiratory Respiratory: Other (tachypnea with diminished inspiration and expritory wheeze) - Abdomen Abdomen: Soft, Non tender - Back Back: No CVA TTP - Derm Derm: Normal color, Warm and dry, No rash - Extremities Extremities: No deformity, Other (1+ bilateral pitting edema) - Neuro Neuro: Alert and oriented X 3, election assistant 2-12 intact, No motor deficit, No sensory deficit, Normal speech Eye Opening: Spontaneous Motor: Obeys Commands Verbal: Oriented GCS Score: 15 - Psych Psych: Normal mood, Normal affect Results - Vitals Vitals: Vital Signs - 24 hr 08/18/20 08/18/20 08/18/20 20:56 21:10 21:12 Temperature 35.5 C L Heart Rate 97 89 93 Respiratory 27 H 22 23 Rate Blood Pressure 214/134 H 196/120 H O2 Saturation 98 98 08/18/20 21:48 Temperature Heart Rate 94 Respiratory 18 Rate Blood Pressure 177/95 H O2 Saturation 93 Oxygen O2 Source Nasal cannula Oxygen Flow Rate 2 - EKG (time done) 2051 Rate: Rate (enter#) (98) Rhythm: LAE [place]: LAD Intervals: Prolonged CA (borderline) Ischemia: Q waves Compare to prior EKG: Changed from prior EKG (SPT 07-24-2020 the rate has increased, the anterior q-waves are more pronounced. ) Computer interpretation: Agree with computer - Labs Labs: Laboratory Tests 08/18/20 08/18/20 08/18/20 20:59 20:59 20:59 WBC 7.9 RBC 4.23 L Hgb 12.9 L Hct 37.5 L MCV 88.7 MCH 30.5 MCHC 34.4 RDW 13.0 Plt Count 365 MPV 8.4 Neut # (Auto) 4.8 Lymph # (Auto) 1.7 [place] # (Auto) 1.1 H Eos # (Auto) 0.3 Baso # (Auto) 0.1 Absolute Nucleated RBC 0.00 Nucleated RBC % 0.0 Sodium 120 L* Potassium 4.2 Chloride 83 L Carbon Dioxide 25 Anion Gap 12.0 BUN 18 Creatinine 0.7 Estimated GFR (MDRD) 107 Glucose 143 H Calcium 8.9 Total Bilirubin 0.6 AST 44 H ALT 35 Alkaline Phosphatase 96 Troponin I High Sens 67.7 H* B-Natriuretic Peptide Total Protein 6.9 Albumin 3.6 Globulin 3.3 Albumin/Globulin Ratio 1.1 08/18/20 20:59 WBC RBC Hgb Hct MCV MCH MCHC RDW Plt Count MPV Neut # (Auto) Lymph # (Auto) [place] # (Auto) Eos # (Auto) Baso # (Auto) Absolute Nucleated RBC Nucleated RBC % Sodium Potassium Chloride Carbon Dioxide Anion Gap BUN Creatinine Estimated GFR (MDRD) Glucose Calcium Total Bilirubin AST ALT Alkaline Phosphatase Troponin I High Sens B-Natriuretic Peptide 2201 H Total Protein Albumin Globulin Albumin/Globulin Ratio - Rads (name of study) chest Radiology: Prelim report reviewed (Impression: Moderate pulmonary edema with sma ll bilateral pleural effusions, presumably a function of cardiogenic pulmonary edema.), EMP read indepedently, See rad report Procedures - IVC sono (time) 2124 Bedside IVC sono: IVC measures (cm) (2.25), IVC collapsed c insp (cm) (1.99), Collapsibility index (0.11), High CVP, Fluid overload PD MEDICAL DECISION MAKING - ED course Complexity details: reviewed old records, reviewed results, re-evaluated patient, considered differential, d/w patient ED course: 85-year-old male with history of hypertension and COPD has developed acute shortness of breath this evening. He has a history of a recent compression fracture in his back in July he has been treated with some narcotic pain reliever he is recently discontinued this narcotic pain reliever about a week ago and he has been taken off of his blood pressure medicines last month when he was admitted into the hospital for a syncopal episode. Today his blood pressure is markedly elevated he is tachypneic he is found to have elevated central venous pressure on interrogation of the inferior vena cava and he appears to have congestive heart failure on his chest x-ray and his BNP is elevated his troponin is mildly elevated. He does not have ischemic changes on his electrocardiogram. Here in the emergency department he is treated with Lasix 40 mg intravenously, Nitropaste 1 inch and morphine sulfate 2 mg intravenously. He has improvement in his breathing. In anticipation of admission to the hospital a rapid coronavirus PCR is obtained. Departure - Departure Disposition: 66 [facility] DC/Xfer Clinical Impression: Hyponatremia Congestive heart failure Qualifiers: Heart failure type: unspecified Heart failure chronicity: acute Qualified Code(s): I50.9 - Heart failure, unspecified HTN (hypertension) Qualifiers: Hypertension type: essential hypertension Qualified Code(s): I10 - Essential (primary) hypertension Condition: Fair
[2020-08-18] MEDS ORDERED: FUROSEMIDE 40 MG/4 ML VIAL IVP STA (21:31)
[2020-08-18] MEDS ORDERED: NITROGLYCERIN 2% PASTE TOP STA (21:32)
[2020-08-18] MEDS ORDERED: MORPHINE 2 MG/ML CARPUJECT IVP STA (21:32)
[2020-08-18 22:43] LABS: C. PNEUMONIAE- RESP PCR PANEL NOT DETECTED
[2020-08-18] MEDS ORDERED: SODIUM CHLORIDE FLUSH 0.9% 10 ML SYRINGE IVP PRN (22:53)
[2020-08-18] MEDS ORDERED: ONDANSETRON 4 MG/2 ML VIAL IVP PRN (22:53)
[2020-08-18] MEDS ORDERED: MORPHINE 2 MG/ML CARPUJECT IVP PRN (22:53)
[2020-08-18] MEDS ORDERED: ASPIRIN CHEW 81 MG TABLET PO STA (23:02)
[2020-08-18] MEDS ORDERED: NITROGLYCERIN 2% PASTE TOP SCH (23:45)
--- NOTE | 2020-08-19 03:18 | HISTORY & PHYSICAL EXAMINATION ---
DATE OF SERVICE: 08/18/2020 Physician: Clau Kendrick MD HISTORY OF PRESENT ILLNESS: This is an 85-year-old white male with a history of low back pain, allergies, syncope and recurrent hyponatremia. He had an admission here approximately two months ago for syncope with hyponatremia and required saline, had some adjustment of his medications. He got again admitted when he presented to the ER with low back pain, but was again hyponatremic and needed adjustment of his medication and was orthostatic and many of his blood pressure medications were stopped. Today, he had very high blood pressure which was noted by a home nurse and he also developed rapidly progressive shortness of breath and came to the ER with this. In the ER, his chest x-ray showed pulmonary edema and blood pressure was as high as 214/134. He was given Nitropaste, Lasix and is feeling better. He is being admitted to inpatient status for flash pulmonary edema and treating malignant hypertension. Of note is that he is again hyponatremic with a serum sodium of 120. PAST MEDICAL HISTORY 1. Recurrent hyponatremia. 2. Low back pain. 3. COPD, 4. Enlarged sella with a pituitary tumor, which was found on the admission two months ago and neurosurgery workup was advised. 5. Prior orthostasis and syncope. 6. Elevated cholesterol. 7. History of hypertension. ALLERGIES 1. CIPRO. 2. FLAGYL. 3. QUINOLONES 4. SIMVASTATIN. MEDICATIONS 1. Albuterol p.r.n. 2. Azelastine b.i.d. inhaler. 3. Vitamin D3 25 mcg daily. 4. Lidocaine patch topically p.r.n. 5. Dulera inhaler b.i.d. 6. Multivitamin daily. 7. Pravastatin 20 mg at bedtime. 8. Magnesium 500 mg daily. FAMILY HISTORY: No inherited diseases. SOCIAL HISTORY: He lives with his . He is not a smoker, drinks no alcohol. REVIEW OF SYSTEMS: A comprehensive review of systems was performed. The pertinent positives are listed, the rest are negative, except that he has trace leg edema that he notices. He denies ever having a cardiac workup. He did have an echo done two months ago on that admission, which showed mild LVH, normal LV systolic function. PHYSICAL EXAMINATION GENERAL: Elderly white male. He is in mild respiratory distress. VITAL SIGNS: Blood pressure is now 196/120, heart rate 93 in sinus rhythm, afebrile. Room air saturation was not documented and on 2 liters he is 98% saturated. HEENT: Unremarkable. NECK: Shows no JVD in a vertical position. CHEST: Has fine rales. There is no wheezing. HEART: Heart sounds are distant. ABDOMEN: Soft, nontender. EXTREMITIES: Show 1+ pretibial edema. No clubbing or cyanosis. NEUROLOGIC: Grossly intact. LABORATORY DATA: Sodium 120, potassium 4.2, BUN 18, creatinine 0.7, AST 44, ALT 35. Troponin 67 (on the last two admissions, his troponin was in the range of 7 and 8). BNP 2201 (on the last two admissions, there was no BNP done). White blood count 7.9, hemoglobin 12.9, platelet count 365. No urinalysis was done. His COVID screen was negative. IMAGING: Chest x-ray: Pulmonary edema. EKG: Normal sinus rhythm with a rate of 98. Right IVCD, right atrial enlargement, poor R-wave progression, early R/S transition and flat T waves in leads I, aVL and V2-V6. Compared to his old EKG done on 07/26/2020, the T-wave flattening is new and the poor R-wave progression is new. IMPRESSION/DIAGNOSES 1. Flash pulmonary edema. 2. Elevated troponin. 3. Abnormal EKG suggesting there is ischemia or possibly [id number] myocardial infarction. 4. Malignant hypertension. 5. Hyponatremia. This is hypervolemic hyponatremia. Unlike in the past, it sounded like he had hypovolemic hyponatremia. 6. Chronic low back pain. 7. Asthma with COPD, not in exacerbation. 8. Pituitary tumor. 9. Elevated cholesterol. 10. History of syncope and orthostasis. PLAN: Admit the patient to inpatient status on telemetry. Continue with IV Lasix b.i.d. Fluid restrict free water to 2000 liter total, 1000 for diet and 1000 for medications. Follow his electrolytes daily. Correct the sodium slowly. Follow his I's and O's and daily weights. Cycle his troponins and follow his daily BNP. Start management of his blood pressure with Nitropaste topically 1 inch every 8 hours and the Lasix will help this as well. We will resume some of the previous medications he had in the past and preferentially will begin a beta -1 selective beta-ron. We will have him chew 4 baby aspirins stat in case this is an NSTEMI and then continue 1 baby aspirin daily. Continue with inhalers, Xopenex p.r.n. in order to avoid tachycardia. Continue with his home statin dose and medications for low back pain and any allergy medications. DEEP VENOUS THROMBOSIS PROPHYLAXIS: SCDs. CODE STATUS: FULL CODE. ATTESTATION: Patient is expected to be discharged or transferred to another facility within 96 hours: Yes. cc: Kenneth Arceo MD TD: 08/19/2020 00:09 MTDD
[2020-08-19] MEDS: ACETAMINOPHEN 325 MG TABLET PO PRN (03:52)
[2020-08-19 05:22] LABS: BASOPHILS % (AUTO) 0.2 %; EOSINOPHILS % (AUTO) 0.2 %; HGB - HEMOGLOBIN 12.9 g/dL (14.0-18.0); LYMPHOCYTES # (AUTO) 0.5 10^3/uL (1.5-3.5); LYMPHOCYTES % (AUTO) 10.5 %; MEAN CORPUSCULAR HEMOGLOBIN 30.4 pg (27.0-31.0); MEAN CORPUSCULAR HGB CONC 34.2 g/dL (32.0-36.0); MEAN CORPUSCULAR VOLUME 88.9 fL (80.0-94.0); MEAN PLATELET VOLUME 8.9 fL (7.4-11.4); MONOCYTES # (AUTO) 0.1 10^3/uL (0.0-1.0); NEUTROPHILS # (AUTO) 4.4 10^3/uL (1.5-6.6); NEUTROPHILS % (AUTO) 86.3 %; PLT - PLATELET COUNT 326 10^3/uL (130-450); RED BLOOD COUNT 4.24 10^6/uL (4.70-6.10); RED CELL DISTRIBUTION WIDTH 12.7 % (12.0-15.0); WHITE BLOOD COUNT 5.1 x10^3/uL (4.8-10.8)
[2020-08-19 05:26] LABS: CREATININE 0.7 mg/dL (0.6-1.2); MAGNESIUM 1.9 mg/dL (1.7-2.8)
[2020-08-19 05:40] LABS: CHOL/HDL RATIO 2.8 (<5.0); CHOLESTEROL 218 mg/dL; HDL CHOLESTEROL 77 mg/dL; LDL CHOLESTEROL,CALCULATED 130 mg/dL; LDL/HDL RATIO 1.7 (<3.6); VLDL CHOLESTEROL 11 mg/dL
[2020-08-19] MEDS: SODIUM CHLORIDE FLUSH 0.9% 10 ML SYRINGE IVP SCH ×4 (06:45→23:49)
[2020-08-19] MEDS: NITROGLYCERIN 2% PASTE TOP SCH ×3 (06:45→21:51)
[2020-08-19] MEDS: FUROSEMIDE 20 MG/2 ML VIAL IVP SCH ×2 (06:45→14:29)
[2020-08-19] MEDS: MAGNESIUM OXIDE 400 MG TABLET PO SCH (08:25)
[2020-08-19] MEDS: ENOXAPARIN 40 MG/0.4 ML SYRINGE SUBQ SCH (09:57)
[2020-08-19] MEDS: FAMOTIDINE 20 MG TABLET PO SCH ×2 (09:57→21:52)
[2020-08-19] MEDS: ASPIRIN EC 81 MG TABLET PO SCH (09:57)
--- NOTE | 2020-08-19 12:07 | PHARMACY PROGRESS NOTE ---
- Best Possible Medication History Admit Date and Time: 08/18/20 2545 Processed by: Pharmacy Medication History completed: Yes Secondary Source(s): Physician records, Pharmacy records, Insurance records As the person ultimately responsible for medication therapy, providers are able to order a medication from an existing home medication list in [facility] via the "Reconcile Routine" prior to Confirmation of that medication by account support analyst. Such practice is discouraged except when the physician, in their clinical judgment, deems that a medical need exists for a medication without regard to previous use.
--- NOTE | 2020-08-19 21:05 | PROVIDER PROGRESS NOTE ---
Assessment/Plan - Problem List (1) Flash pulmonary edema Assessment/Plan: He feels much better, is not orthopneic, was able to walk 30 feet in hallway and is off O2 per n.c. at rest. Patient himself has a theory that he was taking in too much water because he was following the discharge orders after the last 2 times he was here and was dehydrated. He was taking in 1.5 L of water and on top of that having milk and tomato juice daily. I's and O's show that he is 4 liters negative in fluid balance from IV diuretic (Lasix 20 mg iv bid) Will change his IV Lasix to p.o. Lasix daily tomorrow. We will stop his Nitropaste, planning cardiac work-up as below. We will resume his home Losartan and start Metoprolol for blood pressure management (see below). (2) Hyponatremia Assessment/Plan: Admission sodium of 120 has improved to 123 today, a slow increase is the plan. He is getting loop diuretic and following a free water restriction, in order to accomplish this correction of serum sodium. 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 We will stop the IV twice daily Lasix and give oral Lasix tomorrow. Continue with the free water restriction. We will obtain nutrition consult for teaching regarding excessive water intake Follow BMP daily. (3) Acute CHF Assessment/Plan: One month ago the patient had an Echo which showed a resting EF of 60%. Potentially he has diastolic dysfunction which could have been worsened by malignant hypertension, causing this flash pulmonary edema. He has ruled out for an WI with troponins that did not double. Will adjust his blood pressure meds in order to not cause orthostasis and syncope but also to not allow malignant hypertension. Once stabilized will plan a nuclear stress test this hospitalization. Also recheck his Echo. (4) Elevated troponin Assessment/Plan: His troponins are elevated but not doubling (67, 99, 66). This is in contrast to his last 2 admissions 2 weeks ago and 6 weeks ago which showed normal at hs-troponins of 8.77 and 9.7. Will proceed to a stress test as described above (5) Abnormal EKG Assessment/Plan: This admission EKG has definite new T wave flattening in the lateral leads. There is concerned that he has coronary ischemia therefore, despite not ruling in for an WI. Once stabilized, will obtain a nuclear imaging stress test, to evaluate for CAD. (6) Uncontrolled hypertension Assessment/Plan: He came in with blood pressure greater than 210. This was presumably because his blood pressure meds has been stopped since the last hospitalization when he was orthostatic. BP is still elevated but much better at 166/99. Will stop his IV Lasix and NTPaste. Will resume his Losartan dose 25 mg daily. We will start Metoprolol succinate at 25 mg once a day, this chosen due to resting heart rate is 80 and 90 and should be 60 (target). (7) Elevated cholesterol Assessment/Plan: The patient has a simvastatin allergy. Home meds were reconciled by pharmacy and he is on pravastatin at the lowest dose of 20 mg daily. His fasting LDL is 130. Will resume his pravastatin but at a 40 mg dose (8) Pituitary tumor Assessment/Plan: Patient reported to me today that a brain surgeon has seen him, the patient is undergoing work-up, has collected 24-hour urine testing and had more brain imaging done. The next visit with this doctor is this coming . I told him I believe he will be discharged before then unable to keep that appointment (9) Asthma without acute exacerbation Assessment/Plan: Continue with as needed inhalers/nebulizers. Will order patient's own med; his other 2 inhalers (10) Chronic pain Assessment/Plan: He described having no pain today which made him very happy Will resume his home dose of baclofen (11) Hx of syncope Assessment/Plan: This happened 6 weeks ago and it was felt to be from orthostasis, he was hyponatremic than 2. His meds were decreased. Continue with telemetry because of this history of syncope. Will resume blood pressure meds but very slowly and staggered because of this history of syncope. - Current Meds Current Meds: Current Medications Generic Name Dose Route Start Last Admin Trade Name Freq PRN Reason Stop Dose Admin Acetaminophen 650 mg 08/18/20 22:53 08/19/20 03:52 Acetaminophen 325 Mg Tablet PO 650 mg Q4HR PRN Administration Pain or Fever > 38C (100.4F) Aspirin 81 mg 08/19/20 09:00 08/19/20 09:57 Aspirin Ec 81 Mg Tablet PO 81 mg DAILY BELKYS Administration Enoxaparin Sodium 40 mg 08/19/20 09:00 08/19/20 09:57 Enoxaparin 40 Mg/0.4 Ml Syringe SUBQ 40 mg DAILY BELKYS Administration Famotidine 20 mg 08/19/20 09:00 08/19/20 09:57 Famotidine 20 Mg Tablet PO 20 mg BID BELKYS Administration Furosemide 20 mg 08/19/20 06:00 08/19/20 14:29 Furosemide 20 Mg/2 Ml Vial IVP 20 mg BIDDIURETIC BELKYS Administration Magnesium Oxide 400 mg 08/19/20 08:00 08/19/20 08:25 Magnesium Oxide 400 Mg Tablet PO 400 mg DAILYWM BELKYS Administration Nitroglycerin 1 inch 08/19/20 06:00 08/19/20 14:30 Nitroglycerin 2% Paste TOP 1 inch Q8H BELKYS Administration Sodium Chloride 10 ml 08/19/20 01:00 08/19/20 17:47 Sodium Chloride Flush 0.9% 10 Ml Syringe IVP 10 ml 0100,0900,1700 BELKYS Administration - Lab Result Fish Bone Diagrams: 08/19/20 04:23 08/19/20 04:23 - Additional Planning My Orders: My Active Orders 08/18/20 22:53 Activity Orders [RC] Q2HR IO [RC] IOSHIFT Initiate Bowel Care Protocol [RC] .protocol Initiate Bronchodialator Dylan [RC] .PROTOCOL Initiate Line Care Protocol [RC] QSHIFT Initiate Personal Care Protoco [RC] .protocol Initiate Secretion Clearance P [RC] .PROTOCOL Oxygen Therapy [RC] Q12H Telemetry- [RC] Q4HR Vital Signs [RC] Q4HR Acetaminophen [Tylenol] 650 mg PO Q4HR PRN Morphine Inj (Carpuject) [Morphine (Carpuject)] 2 mg IVP Q3HR PRN Ondansetron Inj [Zofran Inj] 4 mg IVP Q6HR PRN Sodium Chloride Flush 0.9% [Normal Saline Flush 0.9%] 10 ml IVP PRN PRN Code Status [OTHERS] Routine Condition of Patient [OTHERS] Routine DVT Prophylaxis [OTHERS] Routine 08/18/20 22:55 Daily Weight [RC] 0600 08/18/20 22:56 IV Insert [RC] .ONCE 08/18/20 22:57 Initiate Line Care Protocol [RC] QSHIFT 08/18/20 23:04 Levalbuterol [Xopenex] 1.25 mg INH Q4H PRN 08/19/20 01:00 Sodium Chloride Flush 0.9% [Normal Saline Flush 0.9%] 10 ml IVP 0100,0900,1700 08/19/20 Breakfast Regular Diet [DIET] 08/19/20 06:00 FUROSEMIDE INJ 20mg VIAL [LASIX INJ 20mg VIAL] 20 mg IVP BIDDIURETIC Nitroglycerin 2% Paste (Pkt) [Nitro-Bid (Pkt)] 1 inch TOP Q8H 08/19/20 08:00 Magnesium Oxide [Mag Ox] 400 mg PO DAILYWM 08/19/20 09:00 Aspirin EC [Ecotrin] 81 mg PO DAILY Enoxaparin [Lovenox] 40 mg SUBQ DAILY Famotidine [Pepcid] 20 mg PO BID 08/19/20 18:27 Nebulizer/MDI Tx. [RC] QID 08/20/20 Breakfast Cardiac Diet [DIET] 08/20/20 05:00 BMP - BASIC METABOLIC PANEL [CHEM] DAILYLAB BNP - B-NATRIURETIC PEPTIDE [IAI] DAILYLAB MAGNESIUM [CHEM] DAILYLAB 08/21/20 05:00 BMP - BASIC METABOLIC PANEL [CHEM] DAILYLAB BNP - B-NATRIURETIC PEPTIDE [IAI] DAILYLAB MAGNESIUM [CHEM] DAILYLAB Subjective - Subjective Patient Reports: Feeling Better, Other (He had absolutelyy no back pain today which is brand-new and made him happy.) Objective Vital Signs: Vital Signs - 24 hr 08/18/20 08/18/20 08/18/20 21:10 21:12 21:48 Temperature Heart Rate 89 93 94 Heart Rate [ Monitoring electrodes] Respiratory 22 23 18 Rate Blood Pressure 196/120 H 177/95 H Blood Pressure [Left Brachial artery] O2 Saturation 98 93 08/18/20 08/18/20 08/18/20 22:06 22:29 23:05 Temperature Heart Rate 88 83 86 Heart Rate [ Monitoring electrodes] Respiratory 24 19 19 Rate Blood Pressure 188/117 H 145/102 H 179/105 H Blood Pressure [Left Brachial artery] O2 Saturation 96 95 96 08/18/20 08/19/20 08/19/20 23:51 00:10 04:24 Temperature 36.5 C 36.5 C Heart Rate 82 Heart Rate [ 83 95 Monitoring electrodes] Respiratory 18 22 20 Rate Blood Pressure 179/97 H Blood Pressure 177/97 H 161/91 H [Left Brachial artery] O2 Saturation 93 96 96 08/19/20 08/19/20 08/19/20 08:10 14:53 16:43 Temperature 36.5 C 36.9 C 36.4 C L Heart Rate Heart Rate [ 80 86 80 Monitoring electrodes] Respiratory 25 H 22 21 Rate Blood Pressure Blood Pressure 154/93 H 150/88 H 140/79 H [Left Brachial artery] O2 Saturation 94 96 93 08/19/20 08/19/20 18:10 19:54 Temperature 36.9 C Heart Rate 90 Heart Rate [ 91 Monitoring electrodes] Respiratory 19 26 H Rate Blood Pressure Blood Pressure 150/83 H [Left Brachial artery] O2 Saturation 94 Oxygen O2 Source Room air Oxygen Flow Rate 2 I&O (Last 24 Hrs): Intake and Output Totals x24h 08/17/20 08/18/20 08/19/20 23:59 23:59 23:59 Intake Total 1030 Output Total 950 4020 Balance -950 -2990 General: Alert, Oriented x3 HEENT: Mucous membr. moist/pink, Other (Cheeks are flushed, lips are purple) Neck: Supple, No JVD Neuro: Alert Cardiovascular: Regular rate, No murmurs Respiratory: No respiratory distress, Breath sounds nml Abdomen: Soft Extremities: No edema, No tenderness/swelling - Results Results: Laboratory Results WBC 5.1 x10^3/uL (4.8-10.8) 08/19/20 04:23 RBC 4.24 10^6/uL (4.70-6.10) L 08/19/20 04:23 Hgb 12.9 g/dL (14.0-18.0) L 08/19/20 04:23 Hct 37.7 % (42.0-52.0) L 08/19/20 04:23 MCV 88.9 fL (80.0-94.0) 08/19/20 04:23 MCH 30.4 pg (27.0-31.0) 08/19/20 04:23 MCHC 34.2 g/dL (32.0-36.0) 08/19/20 04:23 RDW 12.7 % (12.0-15.0) 08/19/20 04:23 Plt Count 326 10^3/uL (130-450) 08/19/20 04:23 MPV 8.9 fL (7.4-11.4) 08/19/20 04:23 Neut # (Auto) 4.4 10^3/uL (1.5-6.6) 08/19/20 04:23 Lymph # (Auto) 0.5 10^3/uL (1.5-3.5) L 08/19/20 04:23 Sargent # (Auto) 0.1 10^3/uL (0.0-1.0) 08/19/20 04:23 Eos # (Auto) 0.0 10^3/uL (0.0-0.7) 08/19/20 04:23 Baso # (Auto) 0.0 10^3/uL (0.0-0.1) 08/19/20 04:23 Absolute Nucleated RBC 0.00 x10^3/uL 08/19/20 04:23 Nucleated RBC % 0.0 /100WBC 08/19/20 04:23 Sodium 123 mmol/L (135-145) L 08/19/20 04:23 Potassium 3.9 mmol/L (3.5-5.0) 08/19/20 04:23 Chloride 86 mmol/L (101-111) L 08/19/20 04:23 Carbon Dioxide 26 mmol/L (21-32) 08/19/20 04:23 Anion Gap 11.0 (6-13) 08/19/20 04:23 BUN 17 mg/dL (6-20) 08/19/20 04:23 Creatinine 0.7 mg/dL (0.6-1.2) 08/19/20 04:23 Estimated GFR (MDRD) 107 (>89) 08/19/20 04:23 Glucose 178 mg/dL (70-100) H 08/19/20 04:23 Calcium 9.0 mg/dL (8.5-10.3) 08/19/20 04:23 Magnesium 1.9 mg/dL (1.7-2.8) 08/19/20 04:23 Total Bilirubin 0.6 mg/dL (0.2-1.0) 08/18/20 20:59 AST 44 IU/L (10-42) H 08/18/20 20:59 ALT 35 IU/L (10-60) 08/18/20 20:59 Alkaline Phosphatase 96 IU/L (42-121) 08/18/20 20:59 Troponin I High Sens 69.3 ng/L (2.3-19.7) H* 08/19/20 04:23 B-Natriuretic Peptide 2100 pg/mL (5-100) H 08/19/20 04:23 Total Protein 6.9 g/dL (6.7-8.2) 08/18/20 20:59 Albumin 3.6 g/dL (3.2-5.5) 08/18/20 20:59 Globulin 3.3 g/dL (2.1-4.2) 08/18/20 20:59 Albumin/Globulin Ratio 1.1 (1.0-2.2) 08/18/20 20:59 Triglycerides 55 mg/dL (-149) 08/19/20 04:23 Cholesterol 218 mg/dL (-199) H 08/19/20 04:23 LDL Cholesterol, Calc 130 mg/dL (-129) H 08/19/20 04:23 VLDL Cholesterol 11 mg/dL 08/19/20 04:23 HDL Cholesterol 77 mg/dL (60-) 08/19/20 04:23 LDL/HDL Ratio 1.7 (<3.6) 08/19/20 04:23 Cholesterol/HDL Ratio 2.8 (<5.0) 08/19/20 04:23 Nasal Adenovirus (PCR) NOT DETECTED 08/18/20 21:30 Nasal B. parapertussis DNA (PCR) NOT DETECTED 08/18/20 21:30 Nasal Coronavir 229E PCR NOT DETECTED 08/18/20 21:30 Nasal Coronavir HKU1 PCR NOT DETECTED 08/18/20 21:30 Nasal Coronavir NL63 PCR NOT DETECTED 08/18/20 21:30 Nasal Coronavir OC43 PCR NOT DETECTED 08/18/20 21:30 Nasal Enterovir/Rhinovir PCR NOT DETECTED 08/18/20 21:30 Nasal Influenza B PCR NOT DETECTED 08/18/20 21:30 Nasal Influenza A PCR NOT DETECTED 08/18/20 21:30 Nasal Parainfluen 1 PCR NOT DETECTED 08/18/20 21:30 Nasal Parainfluen 2 PCR NOT DETECTED 08/18/20 21:30 Nasal Parainfluen 3 PCR NOT DETECTED 08/18/20 21:30 Nasal Parainfluen 4 PCR NOT DETECTED 08/18/20 21:30 Nasal RSV (PCR) NOT DETECTED 08/18/20 21:30 Nasal B.pertussis DNA PCR NOT DETECTED 08/18/20 21:30 Nasal C.pneumoniae (PCR) NOT DETECTED 08/18/20 21:30 Jordan Human Metapneumo PCR NOT DETECTED 08/18/20 21:30 Nasal M.pneumoniae (PCR) NOT DETECTED 08/18/20 21:30 Nasal SARS-CoV-2 (PCR) NOT DETECTED 08/18/20 21:30 - Procedures Procedures: Procedures DRAINAGE OF R FINGER PHALANX JT, OPEN APPROACH, DIAGN (10/24/15) INSERTION OF INFUSION DEV INTO SUP VENA CAVA, PERC APPROACH (10/24/15)
[2020-08-19] MEDS ORDERED: METOPROLOL SUCCINATE 25 MG TABLET PO ONE (21:09)
[2020-08-19] MEDS ORDERED: LIDOCAINE PATCH 5% TOP PRN (21:09)
[2020-08-19] MEDS ORDERED: BACLOFEN 10 MG TABLET PO PRN (21:09)
[2020-08-20 05:51] LABS: CREATININE 0.9 mg/dL (0.6-1.2); MAGNESIUM 2.2 mg/dL (1.7-2.8)
[2020-08-20] MEDS: NITROGLYCERIN 2% PASTE TOP SCH (05:57)
[2020-08-20] MEDS: MAGNESIUM OXIDE 400 MG TABLET PO SCH (08:17)
[2020-08-20] MEDS: CHOLECALCIFEROL 25 MCG TABLET PO SCH (08:18)
[2020-08-20] MEDS: ASPIRIN EC 81 MG TABLET PO SCH (08:18)
[2020-08-20] MEDS: LOSARTAN 50 MG TABLET PO SCH (08:18)
[2020-08-20] MEDS: MULTIVITAMIN W/MINERALS TABLET PO SCH (08:18)
[2020-08-20] MEDS: FAMOTIDINE 20 MG TABLET PO SCH ×2 (08:19→20:30)
[2020-08-20] MEDS: SODIUM CHLORIDE FLUSH 0.9% 10 ML SYRINGE IVP SCH ×2 (08:20→15:49)
[2020-08-20] MEDS: ENOXAPARIN 40 MG/0.4 ML SYRINGE SUBQ SCH (08:21)
[2020-08-20] MEDS ORDERED: FUROSEMIDE 20 MG TABLET PO SCH (09:00)
[2020-08-20] MEDS ORDERED: METOPROLOL SUCCINATE 25 MG TABLET PO SCH ×2 (09:00)
[2020-08-20] MEDS: AZELASTINE HCL 137 MCG NAS SCH ×2 (11:03→20:30)
[2020-08-20] MEDS: BUDESONIDE 0.5 MG/2 ML NEB INH SCH ×2 (13:10→19:33)
[2020-08-20] MEDS: FORMOTEROL FUMARATE NEB 20 MCG/2 ML INH SCH ×2 (13:11→19:33)
[2020-08-20] MEDS: ACETAMINOPHEN 325 MG TABLET PO PRN ×2 (15:49→20:30)
[2020-08-20] MEDS: LEVALBUTEROL 1.25 MG/3 ML NEB INH PRN (19:33)
[2020-08-20] MEDS ORDERED: PRAVASTATIN 40 MG TABLET PO SCH (21:00)
[2020-08-20] MEDS ORDERED: hydrALAZINE 10 MG TABLET PO ONE (21:13)
--- NOTE | 2020-08-20 22:03 | PROVIDER PROGRESS NOTE ---
Assessment/Plan - Problem List (1) Uncontrolled hypertension Assessment/Plan: P.o. Lasix given today and will stop, he is prerenal. Beta-blockers have been ordered for blood pressure management and will give individual doses of hydralazine as well. (2) Hyponatremia Assessment/Plan: This is improving slowly daily. He admitted that he was following discharge instructions and drinking a liter and a half of water daily, which was undoubtedly adding to this hyponatremia. There is now fluid restriction for free water intake and he had 2 days of IV Lasix, today p.o. Lasix. Follow BMP daily (3) Acute CHF Assessment/Plan: Improving. We will perform oximetry test tomorrow before discharge to see if he needs a home oxygen order (4) Elevated troponin Assessment/Plan: They did not double, they were probably elevated because of his CHF and severe hypertension. (5) Abnormal EKG Assessment/Plan: He had very obvious new T wave flattening on this EKG compared to just several weeks ago. Because of that change and flash pulmonary edema and troponins that were higher than last admission, he will be undergoing a stress test as an inpatient tomorro w. I spoke to the , answered questions to her satisfaction: She wondered what would happen if he had a very abnormal test (be transferred for coronary angiogram) or a mildly abnormal test (probable medical management with medication adjustments will be started) (6) Elevated cholesterol Assessment/Plan: LDL was 130. His home pravastatin of 20 mg has been increased to 40 mg daily. The told me by phone call that he gets "muscle spasm" when he takes simvastatin and she wondered if cyclobenzaprine would help with this in the future, it may (7) Pituitary tumor Assessment/Plan: This is being worked up and he has an appointment on with that specialist. The intention is that he will be home and able to keep that appointment on (today is Friday). (8) Asthma without acute exacerbation Assessment/Plan: As per Hx, prn nebs ordered. (9) Chronic pain Assessment/Plan: His arthritis is bad. Yesterday he had no back pain whatsoever, probably because he had received a dose of IV morphine. Today there is slight low back pain that has recurred (10) Hx of syncope Assessment/Plan: He was previously on losartan plus HCTZ which created orthostasis and he had full syncope. When those meds were entirely stopped he presented now with severe hypertension. Patient will need a medication combination that controls his blood pressure but does not cause orthostasis (11) Flash pulmonary edema Assessment/Plan: Resolved - Current Meds Current Meds: Current Medications Generic Name Dose Route Start Last Admin Trade Name Freq PRN Reason Stop Dose Admin Acetaminophen 650 mg 08/18/20 22:53 08/20/20 20:30 Acetaminophen 325 Mg Tablet PO 650 mg Q4HR PRN Administration Pain or Fever > 38C (100.4F) Aspirin 81 mg 08/19/20 09:00 08/20/20 08:18 Aspirin Ec 81 Mg Tablet PO 81 mg DAILY BELKYS Administration Budesonide 0.5 mg 08/20/20 08:00 08/20/20 19:33 Budesonide 0.5 Mg/2 Ml Neb INH 0.5 mg RTBID BELKYS Administration Cholecalciferol 25 mcg 08/20/20 09:00 08/20/20 08:18 Cholecalciferol 25 Mcg Tablet PO 25 mcg DAILY BELKYS Administration Enoxaparin Sodium 40 mg 08/19/20 09:00 08/20/20 08:21 Enoxaparin 40 Mg/0.4 Ml Syringe SUBQ 40 mg DAILY BELKYS Administration Famotidine 20 mg 08/19/20 09:00 08/20/20 20:30 Famotidine 20 Mg Tablet PO 20 mg BID BELKYS Administration Formoterol Fumarate 20 mcg 08/20/20 08:00 08/20/20 19:33 Formoterol Fumarate Neb 20 Mcg/2 Ml INH 20 mcg RTBID BELKYS Administration Levalbuterol HCl 1.25 mg 08/18/20 23:04 08/20/20 19:33 Levalbuterol 1.25 Mg/3 Ml Neb INH 1.25 mg Q4H PRN Administration Shortness of Air/Wheezing Losartan Potassium 25 mg 08/20/20 09:00 08/20/20 08:18 Losartan 50 Mg Tablet PO 25 mg DAILY BELKYS Administration Magnesium Oxide 400 mg 08/19/20 08:00 08/20/20 08:17 Magnesium Oxide 400 Mg Tablet PO 400 mg DAILYWM BELKYS Administration Multivitamins/Minerals 1 tab 08/20/20 09:00 08/20/20 08:18 Multivitamin W/Minerals Tablet PO 1 tab DAILY BELKYS Administration Azelastine Hcl [ 2 each 08/20/20 21:00 08/20/20 20:30 Azelastine Hcl] 137 RICARDO 2 each Mcg Nasal BID BELKYS Administration Pravastatin Sodium 40 mg 08/20/20 21:00 08/20/20 20:30 Pravastatin 40 Mg Tablet PO 40 mg QPM BELKYS Administration Sodium Chloride 10 ml 08/19/20 01:00 08/20/20 15:49 Sodium Chloride Flush 0.9% 10 Ml Syringe IVP 10 ml 0100,0900,1700 BELKYS Administration - Lab Result Fish Bone Diagrams: 08/19/20 04:23 08/20/20 04:30 - Additional Planning My Orders: My Active Orders 08/19/20 21:09 Baclofen [Lioresal] 5 mg PO TID PRN Lidocaine Patch 5% [Lidoderm Patch] 1 patch TOP DAILY PRN 08/20/20 Breakfast Cardiac Diet [DIET] 08/20/20 08:00 Budesonide [Pulmicort] 0.5 mg INH RTBID Formoterol Fumarate [Perforomist] 20 mcg INH RTBID 08/20/20 09:00 Cholecalciferol [Vitamin D3] 25 mcg PO DAILY Losartan [Cozaar] 25 mg PO DAILY Multivitamin W/Minerals [Theragran M] 1 tab PO DAILY 08/20/20 21:00 Patient Own Med [Patient Own Medication] 2 each RICARDO BID Pravastatin [Pravachol] 40 mg PO QPM 08/20/20 21:06 Metoprolol Succinate [Toprol Xl] 12.5 mg PO DAILY 08/20/20 22:13 Stress Test Prep [RC] .ONCE 08/21/20 00:01 DIET [NPO except Meds] [DIET] 08/21/20 05:00 BMP - BASIC METABOLIC PANEL [CHEM] DAILYLAB BNP - B-NATRIURETIC PEPTIDE [IAI] DAILYLAB MAGNESIUM [CHEM] DAILYLAB 08/21/20 08:00 Echo Transthoracic Complete [ECHO] Routine Myocardial Perfusion STR/RST [NM] Routine hydrALAZINE [Apresoline] 10 mg PO ONCE ONE 08/21/20 09:00 polyethylene glycoL 3350 [Miralax] 17 gm PO DAILY Subjective - Subjective Patient Reports: Resting Comfortably, Back Pain Objective Vital Signs: Vital Signs - 24 hr 08/19/20 08/20/20 08/20/20 23:51 00:07 04:50 Temperature 36.8 C 36.6 C Heart Rate Heart Rate [ 77 80 Monitoring electrodes] Respiratory 16 20 Rate Blood Pressure 137/81 H [Left Brachial artery] Blood Pressure 137/78 H [Right Brachial artery] O2 Saturation 93 95 08/20/20 08/20/20 08/20/20 11:41 13:30 16:09 Temperature 36.6 C 36.9 C Heart Rate 68 Heart Rate [ 68 69 Monitoring electrodes] Respiratory 17 20 21 Rate Blood Pressure 136/78 H 156/97 H [Left Brachial artery] Blood Pressure [Right Brachial artery] O2 Saturation 92 96 08/20/20 08/20/20 08/20/20 19:30 20:05 20:28 Temperature 36.8 C Heart Rate 73 Heart Rate [ 70 77 Monitoring electrodes] Respiratory 18 19 Rate Blood Pressure 165/82 H 161/97 H [Left Brachial artery] Blood Pressure 160/78 H [Right Brachial artery] O2 Saturation 95 Oxygen O2 Source Room air Oxygen Flow Rate 2 I&O (Last 24 Hrs): Intake and Output Totals x24h 08/18/20 08/19/20 08/20/20 23:59 23:59 23:59 Intake Total 1030 960 Output Total 950 4445 850 Balance -950 -3415 110 General: Alert, Oriented x3 HEENT: Mucous membr. moist/pink, Other (Cheeks are flushed and lips are purple) Neck: Supple, No JVD Neuro: Alert, Non Focal Cardiovascular: Regular rate Respiratory: No respiratory distress, Breath sounds nml Abdomen: Soft Extremities: No edema - Results Results: Laboratory Results WBC 5.1 x10^3/uL (4.8-10.8) 08/19/20 04:23 RBC 4.24 10^6/uL (4.70-6.10) L 08/19/20 04:23 Hgb 12.9 g/dL (14.0-18.0) L 08/19/20 04:23 Hct 37.7 % (42.0-52.0) L 08/19/20 04:23 MCV 88.9 fL (80.0-94.0) 08/19/20 04:23 MCH 30.4 pg (27.0-31.0) 08/19/20 04:23 MCHC 34.2 g/dL (32.0-36.0) 08/19/20 04:23 RDW 12.7 % (12.0-15.0) 08/19/20 04:23 Plt Count 326 10^3/uL (130-450) 08/19/20 04:23 MPV 8.9 fL (7.4-11.4) 08/19/20 04:23 Neut # (Auto) 4.4 10^3/uL (1.5-6.6) 08/19/20 04:23 Lymph # (Auto) 0.5 10^3/uL (1.5-3.5) L 08/19/20 04:23 Cedar # (Auto) 0.1 10^3/uL (0.0-1.0) 08/19/20 04:23 Eos # (Auto) 0.0 10^3/uL (0.0-0.7) 08/19/20 04:23 Baso # (Auto) 0.0 10^3/uL (0.0-0.1) 08/19/20 04:23 Absolute Nucleated RBC 0.00 x10^3/uL 08/19/20 04:23 Nucleated RBC % 0.0 /100WBC 08/19/20 04:23 Sodium 128 mmol/L (135-145) L 08/20/20 04:30 Potassium 4.0 mmol/L (3.5-5.0) 08/20/20 04:30 Chloride 91 mmol/L (101-111) L 08/20/20 04:30 Carbon Dioxide 29 mmol/L (21-32) 08/20/20 04:30 Anion Gap 8.0 (6-13) 08/20/20 04:30 BUN 26 mg/dL (6-20) H 08/20/20 04:30 Creatinine 0.9 mg/dL (0.6-1.2) 08/20/20 04:30 Estimated GFR (MDRD) 80 (>89) L 08/20/20 04:30 Glucose 124 mg/dL (70-100) H 08/20/20 04:30 Calcium 9.0 mg/dL (8.5-10.3) 08/20/20 04:30 Magnesium 2.2 mg/dL (1.7-2.8) 08/20/20 04:30 Total Bilirubin 0.6 mg/dL (0.2-1.0) 08/18/20 20:59 AST 44 IU/L (10-42) H 08/18/20 20:59 ALT 35 IU/L (10-60) 08/18/20 20:59 Alkaline Phosphatase 96 IU/L (42-121) 08/18/20 20:59 Troponin I High Sens 69.3 ng/L (2.3-19.7) H* 08/19/20 04:23 B-Natriuretic Peptide 1235 pg/mL (5-100) H 08/20/20 04:30 Total Protein 6.9 g/dL (6.7-8.2) 08/18/20 20:59 Albumin 3.6 g/dL (3.2-5.5) 08/18/20 20:59 Globulin 3.3 g/dL (2.1-4.2) 08/18/20 20:59 Albumin/Globulin Ratio 1.1 (1.0-2.2) 08/18/20 20:59 Triglycerides 55 mg/dL (-149) 08/19/20 04:23 Cholesterol 218 mg/dL (-199) H 08/19/20 04:23 LDL Cholesterol, Calc 130 mg/dL (-129) H 08/19/20 04:23 VLDL Cholesterol 11 mg/dL 08/19/20 04:23 HDL Cholesterol 77 mg/dL (60-) 08/19/20 04:23 LDL/HDL Ratio 1.7 (<3.6) 08/19/20 04:23 Cholesterol/HDL Ratio 2.8 (<5.0) 08/19/20 04:23 Nasal Adenovirus (PCR) NOT DETECTED 08/18/20 21:30 Nasal B. parapertussis DNA (PCR) NOT DETECTED 08/18/20 21:30 Nasal Coronavir 229E PCR NOT DETECTED 08/18/20 21:30 Nasal Coronavir HKU1 PCR NOT DETECTED 08/18/20 21:30 Nasal Coronavir NL63 PCR NOT DETECTED 08/18/20 21:30 Nasal Coronavir OC43 PCR NOT DETECTED 08/18/20 21:30 Nasal Enterovir/Rhinovir PCR NOT DETECTED 08/18/20 21:30 Nasal Influenza B PCR NOT DETECTED 08/18/20 21:30 Nasal Influenza A PCR NOT DETECTED 08/18/20 21:30 Nasal Parainfluen 1 PCR NOT DETECTED 08/18/20 21:30 Nasal Parainfluen 2 PCR NOT DETECTED 08/18/20 21:30 Nasal Parainfluen 3 PCR NOT DETECTED 08/18/20 21:30 Nasal Parainfluen 4 PCR NOT DETECTED 08/18/20 21:30 Nasal RSV (PCR) NOT DETECTED 08/18/20 21:30 Nasal B.pertussis DNA PCR NOT DETECTED 08/18/20 21:30 Nasal C.pneumoniae (PCR) NOT DETECTED 08/18/20 21:30 Ricardo Human Metapneumo PCR NOT DETECTED 08/18/20 21:30 Nasal M.pneumoniae (PCR) NOT DETECTED 08/18/20 21:30 Nasal SARS-CoV-2 (PCR) NOT DETECTED 08/18/20 21:30 - Procedures Procedures: Procedures DRAINAGE OF R FINGER PHALANX JT, OPEN APPROACH, DIAGN (10/24/15) INSERTION OF INFUSION DEV INTO SUP VENA CAVA, PERC APPROACH (10/24/15)
[2020-08-21] MEDS: SODIUM CHLORIDE FLUSH 0.9% 10 ML SYRINGE IVP SCH ×3 (00:40→16:02)
[2020-08-21 05:12] LABS: CALCIUM 8.7 mg/dL (8.5-10.3); MAGNESIUM 2.1 mg/dL (1.7-2.8)
[2020-08-21] MEDS: LEVALBUTEROL 1.25 MG/3 ML NEB INH PRN (07:30)
[2020-08-21] MEDS: FORMOTEROL FUMARATE NEB 20 MCG/2 ML INH SCH (07:30)
[2020-08-21] MEDS: BUDESONIDE 0.5 MG/2 ML NEB INH SCH (07:31)
[2020-08-21] MEDS ORDERED: hydrALAZINE 10 MG TABLET PO ONE (08:00)
[2020-08-21] MEDS: ASPIRIN EC 81 MG TABLET PO SCH (08:40)
[2020-08-21] MEDS: MULTIVITAMIN W/MINERALS TABLET PO SCH (08:40)
[2020-08-21] MEDS: CHOLECALCIFEROL 25 MCG TABLET PO SCH (08:40)
[2020-08-21] MEDS: MAGNESIUM OXIDE 400 MG TABLET PO SCH (08:40)
[2020-08-21] MEDS: FAMOTIDINE 20 MG TABLET PO SCH (08:40)
[2020-08-21] MEDS: LOSARTAN 50 MG TABLET PO SCH (08:41)
[2020-08-21] MEDS: METOPROLOL SUCCINATE 25 MG TABLET PO SCH ×2 (08:42→17:48)
[2020-08-21] MEDS: AZELASTINE HCL 137 MCG NAS SCH (08:42)
[2020-08-21] MEDS: ENOXAPARIN 40 MG/0.4 ML SYRINGE SUBQ SCH ×2 (08:42→08:49)
[2020-08-21] MEDS ORDERED: polyethylene glycoL 3350 17 GM PACKET PO SCH (09:00)
[2020-08-21] MEDS ORDERED: REGADENOSON 0.4 MG/5 ML SYRINGE IVP ONE (11:30)
--- NOTE | 2020-08-21 13:10 | DISCHARGE SUMMARY ---
Discharge Summary Admit Date: 08/19/20 Discharge Date: 08/21/20 Discharging Provider: Pablo Ascencio Condition at Discharge: Fair Discharge Disposition: 02 Transfer Acute Care Hosp - DIAGNOSES Admission Diagnoses: Flash pulmonary edema Elevated troponin Malignant hypertension Hyponatremia Chronic back pain Asthma with COPD Pituitary tumor Hyperlipidemia History of syncope and orthostasis. Discharge Diagnoses with Status of Each Condition: Myocardial ischemia CHF/Flash pulmonary edema: Improved. EF 30-35% Malignant hypertension: Resolved Hyponatremia: Improved Chronic back pain: Chronic Asthma with COPD Pituitary tumor Hyperlipidemia: Chronic History of syncope and orthostasis. - HPI History of Present Illness: Per HPI of 08/18/2020. The patient is an 85-year-old male who presented to the ED with Pretension. A visiting nurse had checked his blood pressure at home and it was noted to be 214/134. He also had rapidly progressive shortness of breath. Thus he was recommended to present to the emergency department. In the ED chest x-ray showed he had pulmonary edema. His labs also showed a Troponin of 69, BNP 2200 and sodium level of 120. As a result he was admitted, given Nitropaste and Lasix. - HOSPITAL COURSE Hospital Course: The patient responded well to diuresis. He had a total of about 7 L of urine output during the cause of his 3-day hospital stay. On the day of discharge/transfer he was breathing comfortably on room air, denied any chest pain or difficulty breathing. He had a 2D echocardiogram done on 08/21/2020 showed left ventricular size is normal. Mild concentric left ventricular hypertrophy. Overall left ventricular systolic function is moderate to severely the globally impaired with an ejection fraction of 30-35%. Impaired relaxation consistent with grade 1 diastolic dysfunction. No regional wall motion abnormalities is seen. As compared to the prior echo the left ventricular systolic function is significantly lower on today's study. There was severe increase in the left atrial volume index. As compared to prior echo, left atrial enlargement is a new finding. The RVSP at rest is 56 mmHg. As compared to prior study the pulmonary artery systolic pressure has increased. A nuclear stress test done on 08/21/2020 showed that there is a large, moderate to severe partially reversible perfusion defect in the distal anterior wall and apex, consistent with myocardial ischemia. The fixed component of the defect in the distal anterior wall likely represents a small myocardial infarct. As a result the cardiology and hospitalist team at [facility] was contacted and the patient was transferred for higher level of care. - ALLERGIES Allergies/Adverse Reactions: Allergies Allergy/AdvReac Type Severity Reaction Status Date / Time ciprofloxacin Allergy Unknown Verified 07/24/20 17:57 metronidazole [From Flagyl] Allergy Unknown Verified 07/24/20 17:57 Quinolones Allergy Unknown Verified 07/24/20 17:57 simvastatin Allergy Unknown Verified 07/24/20 17:57 - MEDICATIONS Home Medications: Ambulatory Orders Medication Instructions Recorded Confirmed Albuterol Sulfate [Proair Hfa 8.5 gm IH Q4H PRN 10/23/15 08/18/20 Inhaler] Azelastine HCl 2 sprays INH BID 12/31/18 08/18/20 Cholecalciferol (Vitamin D3) 25 mcg ORAL DAILY 12/31/18 08/18/20 [Vitamin D3] Magnesium Oxide [Magnesium] 500 mg ORAL DAILY 12/31/18 08/18/20 Mometasone/Formoterol [Dulera 200 2 puffs INH BID 12/31/18 08/19/20 Mcg-5 Mcg Inhaler] Pravastatin Sodium 20 mg PO QPM 12/31/18 08/19/20 Multivit-Min/FA/Lycopen/Lutein 1 each PO DAILY 07/18/20 08/18/20 [Centrum Silver Men Tablet] Lidocaine Patch 5% [Lidoderm Patch] 1 patch TOP DAILY PRN #7 patch 07/27/20 08/19/20 Baclofen [Lioresal] 5 mg PO TID PRN 08/19/20 08/19/20 Losartan [Cozaar] 25 mg PO DAILY #30 tablet 08/21/20 Metoprolol Succinate [Toprol Xl] 12.5 mg PO DAILY #30 tablet 08/21/20 amLODIPine [Norvasc] 5 mg PO DAILY 30 Days #30 tablet 08/21/20 - PHYSICAL EXAM AT DISCHARGE General Appearance: positive: No acute distress, Alert Eyes Bilateral: positive: PERRL, EOMI ENT: positive: No signs of dehydration Neck: positive: No JVD, Thyromegaly Respiratory: positive: Chest non-tender, No respiratory distress. negative: Wheezes, Rales, Rhonchi Cardiovascular: positive: Regular rate & rhythm, No murmur Abdomen: positive: Non-tender, No organomegaly, Nml bowel sounds, No distention Back: positive: Nml inspection Skin: positive: Color nml, No rash, Warm, Dry Extremities: positive: Non-tender, Nml appearance, No pedal edema Neurologic/Psychiatric: positive: Oriented x3, Mood/affect nml - LABS Result Diagrams: 08/19/20 04:23 08/21/20 04:32 - FOLLOW UP Follow Up: Follow-up with primary care physician within 7 days of discharge. Patient would need a referral to cardiology in the outpatient setting. Patient's primary care physician to facilitate. - TIME SPENT Time Spent in Discharge (Minutes): 35
--- NOTE | 2020-08-21 13:28 | Discharge Plan ---
Discharge Plan Problem Reviewed?: Yes Disposition: 02 Transfer Acute Care Hosp Condition: Fair Prescriptions: Losartan [Cozaar] 25 mg PO DAILY #30 tablet amLODIPine [Norvasc] 5 mg PO DAILY 30 Days #30 tablet Metoprolol Succinate [Toprol Xl] 12.5 mg PO DAILY #30 tablet Diet: Cardiac Activity Restrictions: Activity as Tolerated Shower Restrictions: No Driving Restrictions: No Assistance Devices: [facility] Concerns: You were admitted 3 days ago with high blood pressure as high as 214/113 after home nurse checked your blood pressure at visit. You were also found to have pulmonary edema Consistent with congestive heart failure. At the time of admission your sodium level was 120 as well. At the time of discharge her sodium level was 130. Your blood pressure on the day of discharge was 159/87. Your BNP was as high as 2200 upon admission. You were admitted to the medical floor and treated with Lasix with which you had good urine output. We will also put on a 2 L fluid restriction. On the day of admission you were breathing very comfortably on room air and denied any chest pain. You also have not needed supplemental oxygen. You were started on metoprolol XL 12.5 mg p.o. daily and Norvasc 5 mg p.o. daily. You had a 2D echocardiogram done on 08/18/2020 which showed that you had an ejection fraction of 30 to 35%. The left ventricle size was normal. There was mild concentric left ventricular hypertrophy. The left ventricular systolic function was moderately to severely globally impaired. At admission your troponin was 67. Recheck was 99 and then 69. As a result you had a stress test done today August 21, 2020 Which showed a large, moderate to severe, partially reversible perfusion defect in the distal anterior wall and apex, consistent with myocardial ischemia. As a result you are being transferred to [facility] for a higher level of care to include a cardiology consult and intervention. Plan of Treatment: You were admitted 3 days ago with high blood pressure as high as 214/113 after home nurse checked your blood pressure at visit. You were also found to have pulmonary edema Consistent with congestive heart failure. At the time of admission your sodium level was 120 as well. At the time of discharge her sodium level was 130. Your blood pressure on the day of discharge was 159/87. Your BNP was as high as 2200 upon admission. You were admitted to the medical floor and treated with Lasix with which you had good urine output. We will also put on a 2 L fluid restriction. On the day of admission you were breathing very comfortably on room air and denied any chest pain. You also have not needed supplemental oxygen. You were started on metoprolol XL 12.5 mg p.o. daily and Norvasc 5 mg p.o. daily. You had a 2D echocardiogram done on 08/18/2020 which showed that you had an ejection fraction of 30 to 35%. The left ventricle size was normal. There was mild concentric left ventricular hypertrophy. The left ventricular systolic function was moderately to severely globally impaired. At admission your troponin was 67. Recheck was 99 and then 69. As a result you had a stress test done today August 21, 2020 Which showed a large, moderate to severe, partially reversible perfusion defect in the distal anterior wall and apex, consistent with myocardial ischemia. As a result you are being transferred to [facility] for a higher level of care to include a cardiology consult and intervention. Care Goals: You were admitted 3 days ago with high blood pressure as high as 214/113 after home nurse checked your blood pressure at visit. You were also found to have pulmonary edema Consistent with congestive heart failure. At the time of admission your sodium level was 120 as well. At the time of discharge her sodium level was 130. Your blood pressure on the day of discharge was 159/87. Your BNP was as high as 2200 upon admission. You were admitted to the medical floor and treated with Lasix with which you had good urine output. We will also put on a 2 L fluid restriction. On the day of admission you were breathing very comfortably on room air and denied any chest pain. You also have not needed supplemental oxygen. You were started on metoprolol XL 12.5 mg p.o. daily and Norvasc 5 mg p.o. daily. You had a 2D echocardiogram done on 08/18/2020 which showed that you had an ejection fraction of 30 to 35%. The left ventricle size was normal. There was mild concentric left ventricular hypertrophy. The left ventricular systolic function was moderately to severely globally impaired. At admission your troponin was 67. Recheck was 99 and then 69. As a result you had a stress test done today August 21, 2020 Which showed a large, moderate to severe, partially reversible perfusion defect in the distal anterior wall and apex, consistent with myocardial ischemia. As a result you are being transferred to [facility] for a higher level of care to include a cardiology consult and intervention. Assessment: The above findings and recommendations have been explained to you and your . You expressed understanding and are agreeable to the plan. No Smoking: If you smoke, Please STOP! Call for help. Follow-up with: Kenneth Arceo MD [Primary Care Provider] -
--- NOTE | 2020-08-21 15:02 | CARDIAC PROCEDURE NOTE ---
Stress Test Report Service Date: 08/21/20 Service Time: 11:55 Ordering Provider: Pablo Ascencio MD Indication for Test: hx of syncope w flash pul edema and elev troponins Significant Medical History: He is an 85-year-old man who has a risk of coronary artery disease due to age, hyperlipidemia, hypertension. Non-smoker. At this age no significant family history to contribute. He presents with a history of syncope. He has pituitary problems and all of his medications were stopped 2 weeks ago to see what could help or not help. Presented to the emergency room with low back pain, severely elevated blood pressure but orthostatic. He was developing progressive shortness of breath at home. In the emergency room he has flash pulmonary edema, a nonacute EKG and troponins of 67.7. Peaked at 99.6. Came down to 69.3. Echocardiogram shows a new reduced ejection fraction of 35%. Cardiac Risk Factors: Age, male sex, hypertension, hyperlipidemia Type of Stress Test: Pharmacologic Stress Test with MPI Pharmacologic Agent: Lexiscan Procedure: Baseline EKG with sinus rhythm with PACs. Nonspecific IVCD. Diffusely flattened T waves. First-degree AV block. Slightly prolonged QT interval. Baseline heart rate was 67, and baseline blood pressure 163/97. We then injected Lexiscan and he did not have any headache, chest pain, short ness of breath, diaphoresis. Heart rate went to 85, and maximum blood pressure was 172/84. EKG was without any acute changes. No clinically significant ST depression or elevation. Under separate dictation, radiology read his nuclear medicine imaging. He has a large anterior wall defect, as well as a small fixed defect. There are segmental wall abnormalities. Summary: EKG is negative for acute ischemic changes, however myocardial perfusion imaging is abnormal. Overall left ventricular systolic function is abnormal with regional wall motion abnormalities. I have discussed the case with Dr. Ascencio. The patient will need to be referred to cardiology urgently.
--- NOTE | 2020-08-21 15:09 | Nuclear Medicine Report ---
PROCEDURE: Rest and exercise myocardial perfusion SPECT with gated imaging and ejection fraction INDICATIONS: New CHF, Abn EKG RADIOPHARMACEUTICAL: 15.6 mCi Tc-99m Myoview IV at rest and 47.4 mCi Tc-99m Myoview IV at peak exerc ise. [id number] was performed. TECHNIQUE: Radiopharmaceutical was injected at peak stress test, and also at rest. SPECT images wer e obtained. SPECT myocardial perfusion images were displayed in short axis, horizontal long axis, an d vertical long axis views. Gated images were reviewed using Auto[employer] software. COMPARISON: None available. FINDINGS: Raw data: There is good myocardial labeling by radiotracer. No significant motion artifacts. Lung- to-heart ratio is 0.40 (normal is less than 0.38 for tetrafosmin tracer). Left ventricle function: Gated images demonstrate normal left ventricle wall thickening. The distal anterior wall and apex is dyskinetic No transient ischemic dilation; TID is 1.07 (normal less than 1 .3). The left ventricle end-diastolic volume is mildly increased. Left ventricle stress ejection fr action is 38%; normal values are above 45%. Myocardial perfusion: There is a large, upiwzzsr-mj-zebwqb, partially reversible perfusion defect in the distal anterior wall and apex, consistent with myocardial ischemia. A fixed component of the def ect may represent a small myocardial infarct. Decreased activity in the inferior wall is most likely caused by diaphragmatic attenuation artifact. IMPRESSION: 1. Abnormal myocardial perfusion images. There is a large, tflnfygc-gt-yqpqrh, partially reversible p erfusion defect in the distal anterior wall and apex, consistent with myocardial ischemia. 2. A fixed component of the defect in the distal anterior wall likely represents a small myocardial i nfarct. 3. Decreased activity in the inferior wall is most likely caused by diaphragmatic attenuation artifac t. Unfortunately, the patient could not tolerate prone imaging. 4. Mild left ventricular marginal. There is dyskinesia in the distal anterior wall and apex. Mildly d ecreased left ventricular systolic function with post stress LVEF at 38%. 5. Increased lung-heart activity ratio (LHR), which is an independent predictor for adverse cardiac e vent. 6. Please correlate with stress EKG report. he result was discussed with Dr. Nava. PQRS ATTESTATIONS: Measure 322 - Is this imaging test primarily performed on a low-risk surgery patient for preoperative evaluation within 30 days preceding their low-risk non-cardiac surgery? Low-risk surgery is defined as cardiac or myocardial infarction less than 1%, including (but not limited to) endoscopic pr ocedures, superficial procedures, cataract surgery, and excisional breast surgery: Answer: No Measure 323 - Is this imaging test performed primarily for the monitoring of an asymptomatic patient who had percutaneous coronary intervention on the visit date or within 2 years of the visit date? An swer: No Measure 324 - Is this imaging test performed primarily for the initial detection and risk assessment on an asymptomatic, low coronary heart disease patient? Low CHD risk definition = clinicians should consider the maximum number of available patient factors used to estimate risk based on [place] (A TP III criteria), typically age, gender, diabetes, smoking status, and use of blood pressure medicati on, and integrate age appropriate estimates for missing elements, such as LDL or standard blood press ure. Answer: No Reviewed by: Carmela Hoyos MD on 08/21/2020 3:07 PM PST Approved by: Carmela Hoyos MD on 08/21/2020 3:07 PM PST Station ID: [id number]
[2020-08-21 17:31] VITALS: BP 165/90
== END 2020-08-21 19:00 | disposition short-term general hospital (02) | DRG 280 ==
LOC: EDUNIT# → ED 20:47 → SUPCPDRO 20:47 → ICU 22:53
PROVIDERS: ADMIT Internal Medicine; ATTEND Internal Medicine
DX: I21.4 Non-ST elevation (NSTEMI) myocardial infarction (principal); I50.9 Heart failure, unspecified; I50.21 Acute systolic (congestive) heart failure; Z20.822 Contact with and (suspected) exposure to COVID-19; E87.1 Hypo-osmolality and hyponatremia; I10 Essential (primary) hypertension; E78.00 Pure hypercholesterolemia, unspecified; I11.0 Hypertensive heart disease with heart failure; G89.29 Other chronic pain; M54.9 Dorsalgia, unspecified; J44.9 Chronic obstructive pulmonary disease, unspecified; D49.7 Neoplasm of unspecified behavior of endocrine glands and other parts of nervous system; E78.5 Hyperlipidemia, unspecified; Z79.51 Long term (current) use of inhaled steroids; Z79.899 Other long term (current) drug therapy
CPT/HCPCS: 36415; 71045; 78452; 80048; 80053; 80061; 83735; 83880; 84484; 85025; 87631; 93005; 93017; 93306; 94640; A9270; A9500; J1650; J2785; J7626; 0202U; 83721; 96374; 96375; 99284

== ENCOUNTER 2020-09-07 12:19 | Outpatient (CLI) | payer MEDICARE ==
[2020-09-07 13:02] LABS: ALBUMIN 3.7 g/dL (3.2-5.5); ALBUMIN/GLOBULIN RATIO 1.2 (1.0-2.2); ALKALINE PHOSPHATASE 113 IU/L (42-121); ALT ALANINE AMINOTRANSFERASE 43 IU/L (10-60); AST ASPARTATE AMINOTRANSFERASE 38 IU/L (10-42); BILIRUBIN,TOTAL 0.6 mg/dL (0.2-1.0); BUN - BLOOD UREA NITROGEN 35 mg/dL (6-20); CALCIUM 10.1 mg/dL (8.5-10.3); CARBON DIOXIDE - CO2 22 mmol/L (21-32); CHLORIDE 96 mmol/L (101-111); CHOL/HDL RATIO 2.7 (<5.0); CHOLESTEROL 159 mg/dL; HDL CHOLESTEROL 59 mg/dL; LDL CHOLESTEROL,CALCULATED 72 mg/dL; LDL/HDL RATIO 1.2 (<3.6); TOTAL PROTEIN 6.9 g/dL (6.7-8.2); VLDL CHOLESTEROL 28 mg/dL
[2020-09-07 13:24] LABS: GLUCOSE 92 mg/dL (70-100)
== END 2020-09-07 12:20 | disposition home or self-care (01) ==
LOC: LAB 12:19
PROVIDERS: ATTEND Internal Medicine Cardiovascular Disease
DX: I50.9 Heart failure, unspecified (principal); Z79.899 Other long term (current) drug therapy
CPT/HCPCS: 36415; 80053; 80061; 83721

== ENCOUNTER 2020-09-09 09:12 | Outpatient (CLI) | payer MEDICARE ==
[2020-09-09 10:55] LABS: T4 (THYROXINE) 9.07 ug/dL (6.09-12.23)
[2020-09-09 10:57] LABS: THYROID STIMULATING HORMONE 3.33 uIU/mL (0.34-5.60)
[2020-09-09 10:58] LABS: FREE T3 2.92 pg/mL (2.5-3.9)
[2020-09-09 11:03] LABS: PROLACTIN 12.12 ng/mL
[2020-09-09 11:24] LABS: FOLLICLE STIMULATING HORMONE 43.57 mIU/mL
[2020-09-09 11:25] LABS: LUTEINIZING HORMONE 19.02 mIU/mL
[2020-09-13 13:47] LABS: ALBUMIN 4.1 g/dL (3.6-5.1); SEX HORMONE BINDING GLOBULIN 125 nmol/L (22-77)
== END 2020-09-09 09:13 | disposition home or self-care (01) ==
LOC: LAB 09:12
PROVIDERS: ATTEND Neurological Surgery
DX: D35.2 Benign neoplasm of pituitary gland (principal)
CPT/HCPCS: 81599; 82024; 82040; 82533; 83001; 83002; 83003; 84146; 84270; 84305; 84403; 84436; 84443; 84481

== ENCOUNTER 2020-11-13 16:44 | Outpatient (CLI) | payer MEDICARE ==
[2020-11-13 17:10] LABS: ALBUMIN 3.6 g/dL (3.2-5.5); ALBUMIN/GLOBULIN RATIO 1.1 (1.0-2.2); BILIRUBIN,TOTAL 0.8 mg/dL (0.2-1.0); CALCIUM 9.8 mg/dL (8.5-10.3); CREATININE 1.4 mg/dL (0.6-1.2); POTASSIUM 4.6 mmol/L (3.5-5.0)
== END 2020-11-13 16:45 | disposition home or self-care (01) ==
LOC: LAB 16:44
PROVIDERS: ATTEND Internal Medicine
DX: E87.1 Hypo-osmolality and hyponatremia (principal)
CPT/HCPCS: 36415; 80053

== ENCOUNTER 2020-11-14 14:42 | Outpatient (CLI) | payer MEDICARE ==
[2020-11-14 17:12] LABS: BILIRUBIN,URINE NEGATIVE (NEGATIVE); CLARITY,URINE HAZY (CLEAR); GLUCOSE, URINE (UA) NEGATIVE (NEGATIVE); KETONES,URINE (UA) NEGATIVE (NEGATIVE); LEUKOCYTE ESTERASE, URINE MODERATE (NEGATIVE); NITRITE,URINE NEGATIVE (NEGATIVE); OCCULT BLOOD,URINE MODERATE (NEGATIVE); PROTEIN,URINE 30 mg/dL (NEGATIVE); UROBILINOGEN,URINE 0.2 (NORMAL) E.U./dL (NORMAL)
[2020-11-14 17:31] LABS: BACTERIA,URINE Moderate /HPF (None Seen); MUCUS,URINE Few Strands; SQUAMOUS EPITHELIAL CELL,UR RARE Squamous (<= Few); WBC,URINE >25 /HPF (0-3)
== END 2020-11-14 14:43 | disposition home or self-care (01) ==
LOC: LAB 14:42
PROVIDERS: ATTEND Internal Medicine
DX: R35.8 Other polyuria (principal)
CPT/HCPCS: 81001; 87086; 87181

== ENCOUNTER 2020-11-16 10:32 | Observation (INO) | payer MEDICARE ==
--- OUTSIDE RECORDS SUMMARY | 2020-11-16 10:36 | EXTERNAL MEDICAL SUMMARY RPT | Continuity of Care Document ---
:1935 Demographics Phone Unavailable Preferred Language Unknown Marital Status Unknown Congregational Affiliation Unknown Race Unknown Ethnic Group Unknown Author Organization [place] Address [address] [place] [address] Phone Problems date description facility [id number] [facility] [employer] Social History date description facility [id number]
--- OUTSIDE RECORDS SUMMARY | 2020-11-16 10:38 | EXTERNAL MEDICAL SUMMARY RPT | Continuity of Care Document ---
:1935 Demographics Phone Unavailable Preferred Language Unknown Marital Status Unknown Denominational Affiliation Unknown Race Unknown Ethnic Group Unknown Author Organization [place] Address [address] [place] [address] Phone Problems date description facility [id number] [facility] [employer] Social History date description facility [id number]
--- NOTE | 2020-11-16 10:50 | ED Physician Documentation ---
History of Present Illness - Stated complaint Stated Complaint: FEVER,N/V - Chief complaint Chief Complaint: General - History obtained from History obtained from: Patient - History of Present Illness Associated symptoms: Urine culture was positive for fairly pansensitive E. coli, resistant only to ampicillin and Unasyn. - Additonal information Additional information: 85-year-old gentleman with history of asthma and coronary disease became acutely ill 4 nights ago after hard day outside working. That night he was feeling good but then threw up his dinner and he thinks he spiked a fever to 100.0. He had a urinalysis done the next day which was reportedly positive and subsequently had a culture done. He was placed on Bactrim, he has been on Bactrim for 3 days now. No more fevers but feels just weak and fatigued. He has had a cough productive of clear sputum for the last few days. He also notes a runny nose but he says that is normal for him this time of year because of tree pollen. He denies any specific urinary symptoms such as frequency, abnormal appearance, or dysuria. Review of Systems Ten Systems: 10 systems reviewed and negative Constitutional: reports: Fever, Chills, Fatigue Nose: reports: Rhinorrhea / runny nose Cardiac: denies: Chest pain / pressure, Palpitations Respiratory: reports: Cough GI: reports: Abdominal Pain (uncomfortable), Nausea (gone now). denies: Diarrhea : denies: Dysuria, Frequency PD PAST MEDICAL HISTORY - Past Medical History Cardiovascular: Hypertension, High cholesterol Respiratory: Asthma Neuro: None Endocrine/Autoimmune: None GI: GERD, GI bleed : Nocturia HEENT: None Psych: None Musculoskeletal: Chronic back pain Derm: None - Past Surgical History Past Surgical History: Yes General: Cholecystectomy, Appendectomy HEENT: Cataracts, Tonsil/Adenoidectomy Derm: Skin cancer surgery - Present Medications Home Medications: Ambulatory Orders Medication Instructions Recorded Confirmed Albuterol Sulfate [Proair Hfa 8.5 gm IH Q4H PRN 10/23/15 08/18/20 Inhaler] Cholecalciferol (Vitamin D3) 25 mcg ORAL DAILY 12/31/18 08/18/20 [Vitamin D3] Magnesium Oxide [Magnesium] 500 mg ORAL DAILY 12/31/18 08/18/20 Multivit-Min/FA/Lycopen/Lutein 1 each PO DAILY 07/18/20 08/18/20 [Centrum Silver Men Tablet] Baclofen [Lioresal] 5 mg PO TID PRN 08/19/20 08/19/20 Metoprolol Succinate [Toprol Xl] 12.5 mg PO DAILY #30 tablet 08/21/20 amLODIPine [Norvasc] 5 mg PO DAILY 30 Days #30 tablet 08/21/20 Atorvastatin Calcium [Lipitor] 80 mg PO DAILY 11/16/20 11/16/20 Clopidogrel [Plavix] 75 mg DAILY 11/16/20 11/16/20 Losartan [Cozaar] 100 mg PO DAILY 11/16/20 Spironolactone [Aldactone] 25 mg PO 11/16/20 Sulfamethox/Trimeth 800/160 1 tab BID 11/16/20 11/16/20 [Bactrim Ds] - Allergies Allergies/Adverse Reactions: Allergies Allergy/AdvReac Type Severity Reaction Status Date / Time ciprofloxacin Allergy Unknown Verified 11/16/20 10:44 metronidazole [From Flagyl] Allergy Unknown Verified 11/16/20 10:44 Quinolones Allergy Unknown Verified 11/16/20 10:44 simvastatin Allergy Unknown Verified 11/16/20 10:44 - Social History Does the pt smoke?: No Smoking Status: Never smoker Does the pt drink ETOH?: Yes Does the pt have substance abuse?: No - Immunizations Immunizations are current?: Yes - POLST Patient has POLST: No POLST Status: Full Code Results - Vitals Vitals: Vital Signs - 24 hr 11/16/20 10:39 Temperature 36.4 C L Heart Rate 84 Respiratory 16 Rate Blood Pressure 125/63 O2 Saturation 96 Oxygen O2 Source Room air - Labs Labs: Laboratory Tests 11/16/20 11/16/20 11/16/20 10:58 10:58 10:58 WBC 10.4 RBC 3.42 L Hgb 10.5 L Hct 31.6 L MCV 92.4 MCH 30.7 MCHC 33.2 RDW 13.3 Plt Count 174 MPV 9.1 Manual Slide Review Indicated Sodium 127 L Potassium 4.2 Chloride 98 L Carbon Dioxide 20 L Anion Gap 9.0 BUN 49 H Creatinine 1.5 H Estimated GFR (MDRD) 45 L Glucose 153 H Lactic Acid 2.3 H Calcium 8.3 L Total Bilirubin 0.6 AST 58 H ALT 48 Alkaline Phosphatase 114 Total Protein 6.1 L Albumin 2.7 L Globulin 3.4 Albumin/Globulin Ratio 0.8 L - Rads (name of study) 1v cxr Radiology: EMP read contemporaneously (NAD) PD MEDICAL DECISION MAKING - ED course ED course: 85-year-old gentleman with recent diagnosis of UTI on appropriate antibiotics for several days but feeling worse. His exam is unremarkable as are his vitals, noted here that his lab work especially the chemistries do seem to be trending in the wrong direction with his sodium trending down from 132 to 127, bicarb going down and slight lactic acidosis. As such Dr. Burris will observe and he is placed on IV Rocephin and IV fluids. Consideration is given to an alternative/noninfectious source of his Illness, i.e. "asymptomatic bacteriuria. That said the lactic acidosis mandates treatment. Departure - Departure Disposition: ED Place in Observation Clinical Impression: Hyponatremia, Muscle weakness UTI (urinary tract infection) Qualifiers: Urinary tract infection type: site unspecified Hematuria presence: without hematuria Qualified Code(s): N39.0 - Urinary tract infection, site not specified Condition: Fair
[2020-11-16 11:12] LABS: BASOPHILS % (AUTO) 0.3 %; EOSINOPHILS % (AUTO) 0.2 %; HCT - HEMATOCRIT 31.6 % (42.0-52.0); HGB - HEMOGLOBIN 10.5 g/dL (14.0-18.0); LYMPHOCYTES # (AUTO) 0.6 10^3/uL (1.5-3.5); LYMPHOCYTES % (AUTO) 5.8 %; MEAN CORPUSCULAR HEMOGLOBIN 30.7 pg (27.0-31.0); MEAN CORPUSCULAR HGB CONC 33.2 g/dL (32.0-36.0); MEAN CORPUSCULAR VOLUME 92.4 fL (80.0-94.0); MEAN PLATELET VOLUME 9.1 fL (7.4-11.4); MONOCYTES # (AUTO) 1.7 10^3/uL (0.0-1.0); MONOCYTES % (AUTO) 16.2 %; NEUTROPHILS % (AUTO) 76.6 %; PLT - PLATELET COUNT 174 10^3/uL (130-450); RED BLOOD COUNT 3.42 10^6/uL (4.70-6.10); RED CELL DISTRIBUTION WIDTH 13.3 % (12.0-15.0); WHITE BLOOD COUNT 10.4 x10^3/uL (4.8-10.8)
[2020-11-16 11:14] LABS: SLIDE REVIEW? Indicated
--- NOTE | 2020-11-16 11:15 | XRAY Report ---
PROCEDURE: Chest 1 View X-Ray INDICATIONS: cough fever TECHNIQUE: One view of the chest was acquired. COMPARISON: 08/18/2020 FINDINGS: Surgical changes and devices: None. Lungs and pleura: No pleural effusions or pneumothorax. Lungs are clear. Mediastinum: Mediastinal contours appear normal. Heart size is normal. Bones and chest wall: No suspicious bony lesions. Overlying soft tissues appear unremarkable. IMPRESSION: No acute cardiopulmonary pathology. Reviewed by: Roe Pierre MD on 11/16/2020 10:14 AM DEIDRE Approved by: Roe Pierre MD on 11/16/2020 10:14 AM MTKRIS Station ID: [id number]
[2020-11-16 11:18] LABS: ALBUMIN 2.7 g/dL (3.2-5.5); ALBUMIN/GLOBULIN RATIO 0.8 (1.0-2.2); BILIRUBIN,TOTAL 0.6 mg/dL (0.2-1.0); CALCIUM 8.3 mg/dL (8.5-10.3); CREATININE 1.5 mg/dL (0.6-1.2); POTASSIUM 4.2 mmol/L (3.5-5.0); TOTAL PROTEIN 6.1 g/dL (6.7-8.2)
[2020-11-16] MEDS ORDERED: cefTRIAXone 2 GM in SODIUM CHLORIDE 0.9% MINIBAG 100 ML IV STA (11:33)
[2020-11-16] MEDS ORDERED: SODIUM CHLORIDE 0.9% 1,000 ML IV STA ×2 (11:47)
[2020-11-16] MEDS ORDERED: ACETAMINOPHEN 325 MG TABLET PO PRN (11:51)
[2020-11-16] MEDS ORDERED: SODIUM CHLORIDE FLUSH 0.9% 10 ML SYRINGE IVP PRN (11:51)
[2020-11-16] MEDS ORDERED: ONDANSETRON ODT 4 MG TABLET TL PRN (11:51)
[2020-11-16 11:55] LABS: BILIRUBIN,URINE NEGATIVE (NEGATIVE); GLUCOSE, URINE (UA) NEGATIVE (NEGATIVE); KETONES,URINE (UA) NEGATIVE (NEGATIVE); LEUKOCYTE ESTERASE, URINE SMALL (NEGATIVE); NITRITE,URINE NEGATIVE (NEGATIVE); OCCULT BLOOD,URINE MODERATE (NEGATIVE); PROTEIN,URINE TRACE mg/dL (NEGATIVE); UROBILINOGEN,URINE 0.2 (NORMAL) E.U./dL (NORMAL)
[2020-11-16 11:58] LABS: CLARITY,URINE CLEAR (CLEAR)
[2020-11-16 11:59] LABS: RBC MORPHOLOGY (MULTIPLE) 1+ ANISOCYTOSIS (NORMAL)
--- NOTE | 2020-11-16 12:02 | HISTORY & PHYSICAL EXAMINATION ---
Chief Complaint - Chief Complaint Chief Complaint: Fever, Weakness, and vomiting. History of Present Illness - Admitted From Admitted From:: Home - History Obtained From Records Reviewed: Yes History obtained from: Patient, ER Physician, EMR - History of Present Illness HPI Comment/Other: This is a pleasant 85-year-old male with past medical history significant for coronary artery disease, chronic systolic heart failure with ejection fraction of 35%, hypertension, asthma who presents today complaining of weakness and fever. He states he felt fine over the weekend then on Friday he started to feel weak and unwell. He measured his temperature and it was 101 to 102 F. He called his primary care provider and he had labs obtained that evening and a urinalysis revealed pyuria with bacteriuria. He was started on Bactrim which he took that evening. He states he initially felt well the following day but then later on Friday and Friday, he continued to have nausea and vomiting. He also states that he had another fever yesterday with a temperature of around 101 F. He has been taking Tylenol which she takes chronically for back pain. He denies any dysuria, urgency, frequency. Reports no abdominal pain. He has been having nausea and vomiting over the past 2 to 3 days. He has been able to keep down liquids but has not had any solid food. He has primarily been drinking Ensure. He is passing gas and is having bowel movements. Denies any diarrhea. He has noticed no blood with his emesis. He denies any chest pain, dyspnea. Reports no dizziness or lightheadedness. Denies any focal deficits, numbness, tingling. He reports no dysphagia or odynophagia. He reports no difficulty urinating and denies having decreased urine output. Of note, he was admitted back in August and he was found to have new heart failure and abnormal stress test then. He was transferred to [facility] in [place] and he underwent an angiogram and had 2 stents placed. He is on Plavix and aspirin. 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 He states he followed up with Dr. Robert and neurosurgeon at [facility] in [place]. He underwent an MRI and the plan is to monitor this for the time being and he will be seeing the neurosurgeon again in 6 months. In the emergency department, he was found to be afebrile with a temperature of 36.4 C. His heart rate was in the 70s and he was normotensive. He was not tachypneic and saturating well on room air. Labs were significant for sodium of 127, bicarbonate of 20, BUN of 49 and a creatinine of 1.5. His lactic acid was 2.3. Chest x-ray was unremarkable. He was given ceftriaxone IV and medicine was consulted for admission. I discussed goals of care with the patient and he would like to be a full code. History - Past Medical History Cardiovascular: reports: Congestive heart failure, Hypertension, High cholesterol, Coronary artery disease Respiratory: reports: Asthma Neuro: reports: None Endocrine/Autoimmune: reports: None GI: reports: GERD, GI bleed : reports: Nocturia HEENT: reports: None Psych: reports: None Musculoskeletal: reports: Chronic back pain Derm: reports: None MRSA Hx?: No - Past Surgical History General: reports: Cholecystectomy, Appendectomy Cardiovascular: reports: Coronary stent, Cardiac catheterization HEENT: reports: Cataracts, Tonsil/Adenoidectomy Derm: reports: Skin cancer surgery - Family & Social History Family History: Mother: , Father: Family History Comment/Other: He reports that his younger brother had liver transplant for unclear reasons. His father had a history of hypertension. He reportedly in his 70s from surgical complications. Living arrangement: At home Living Situation: With spouse/s.o. Social History Notes: He lives at home with his . He is a non-smoker. He has not drank alcohol since he was diagnosed with coronary artery disease 3 months ago. He was previously drinking 2-3 beers a week. 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 - POLST Patient has POLST: No POLST Status: Full Code Meds/Allgy - Home Medications Home Medications: Ambulatory Orders Medication Instructions Recorded Confirmed Albuterol Sulfate [Proair Hfa 8.5 gm IH Q4H PRN 10/23/15 08/18/20 Inhaler] Cholecalciferol (Vitamin D3) 25 mcg ORAL DAILY 12/31/18 08/18/20 [Vitamin D3] Magnesium Oxide [Magnesium] 500 mg ORAL DAILY 12/31/18 08/18/20 Multivit-Min/FA/Lycopen/Lutein 1 each PO DAILY 07/18/20 08/18/20 [Centrum Silver Men Tablet] Baclofen [Lioresal] 5 mg PO TID PRN 08/19/20 08/19/20 Metoprolol Succinate [Toprol Xl] 12.5 mg PO DAILY #30 tablet 08/21/20 amLODIPine [Norvasc] 5 mg PO DAILY 30 Days #30 tablet 08/21/20 Atorvastatin Calcium [Lipitor] 80 mg PO DAILY 11/16/20 11/16/20 Clopidogrel [Plavix] 75 mg DAILY 11/16/20 11/16/20 Losartan [Cozaar] 100 mg PO DAILY 11/16/20 Spironolactone [Aldactone] 25 mg PO 11/16/20 Sulfamethox/Trimeth 800/160 1 tab BID 11/16/20 11/16/20 [Bactrim Ds] - Allergies Allergies/Adverse Reactions: Allergies Allergy/AdvReac Type Severity Reaction Status Date / Time ciprofloxacin Allergy Unknown Verified 11/16/20 10:44 metronidazole [From Flagyl] Allergy Unknown Verified 11/16/20 10:44 Quinolones Allergy Unknown Verified 11/16/20 10:44 simvastatin Allergy Unknown Verified 11/16/20 10:44 Review of Systems - Constitutional Constitutional: reports: Fatigue, Fever, Chills, Malaise, Weakness, Poor appetite - Eyes Eyes: denies: Blurred vision - Ears, Nose & Throat Ears, Nose & Throat: reports: Nasal congestion. denies: Nasal discharge, Sore throat - Cardiovascular Cariovascular: denies: Chest pain, Edema, Lightheadedness, Exertional dyspnea, Decr. exercise tolerance - Respiratory Respiratory: denies: Cough, Sputum production, SOB at rest, SOB with exertion - Gastrointestinal Gastrointestinal: reports: Nausea, Poor appetite. denies: Abdominal pain, Constipation, Diarrhea, Tyler blood emesis - Genitourinary Genitourinary: denies: Dysuria, Frequency, Urgency, Hematuria - Musculoskeletal Musculoskeletal: denies: Muscle weakness - Integumentary Integumentary: denies: Rash - Neurological Neurological: reports: General weakness. denies: Focal weakness, Headache, Dizziness, Numbness - Hematologic/Lymphatic Hematologic/Lymphatic: denies: Bleeding tendencies - All Other Systems All Other Systems: reports: Reviewed and negative Prior Level of Functionality: He is independent with his ADLs. Exam - Vital Signs Reviewed Vital Signs: Yes Vital Signs: Vital Signs x48h Temp Pulse Resp BP Pulse Ox 11/16/20 10:39 36.4 C L 84 16 125/63 96 - Physical Exam General Appearance: positive: No acute distress, Alert Eyes Bilateral: positive: Normal inspection, Conjunctivae nml ENT: positive: Dry mucous membranes Neck: positive: Nml inspection Respiratory: positive: No respiratory distress. negative: Wheezes, Rales Cardiovascular: positive: Regular rate & rhythm, No murmur. negative: Tachycardia, Systolic murmur Abdomen: positive: Non-tender, Nml bowel sounds, No distention. negative: Tenderness, Guarding, Rebound Skin: positive: No rash, Warm, Dry Extremities: positive: Full ROM, No pedal edema Neurologic/Psychiatric: positive: Motor nml, Sensation nml. negative: Disoriented to person, Disoriented to place Conclusion/Plan - Problem List (1) Hyponatremia Conclusion/Plan: His sodium is decreased at 127 compared to his baseline of about 134. Suspect this is likely hypovolemic hyponatremia. We will place him on IV fluids and re check his sodium this evening and once again tomorrow morning. Will not order urine osmolality as this is a send out lab and will not be available for a few days. (2) UTI (urinary tract infection) Conclusion/Plan: He has been treated for urinary tract infection on outpatient basis with Bactrim. Although he has no symptoms, he reports subjective fevers at home and generalized weakness. The urine culture grew E. coli that was sensitive to Bactrim. Given his reported history of fevers, we will place him in observation and place him on IV ceftriaxone. We will follow up blood culture as well to rule out bacteremia. Suspect he will be able to be discharged home tomorrow on oral antibiotics. Qualifiers: Urinary tract infection type: site unspecified Hematuria presence: without hematuria Qualified Code(s): N39.0 - Urinary tract infection, site not specified (3) Acute kidney injury Conclusion/Plan: His creatinine is elevated at 1.5 compared to his baseline of 1.0. This likely due to the use of Bactrim although there could be a component of prerenal injury. We will hydrate him with IV lactated Ringer's. Discontinue the Bactrim. Hold losartan and spironolactone. We will recheck renal function in the morning. (4) Coronary artery disease Conclusion/Plan: This was diagnosed in August of this year after an abnormal stress test. He had an angiogram at [facility] in [place] and he tells me that he had 2 stents placed. He is on aspirin and Plavix. We will administer both of these medications today as he has not taken his morning medications yet. We will check a troponin and EKG given his weakness. (5) Chronic HFrEF (heart failure with reduced ejection fraction) Conclusion/Plan: His echocardiogram from August of this year revealed an ejection fraction of 30 to 35%. This does not appear to be an exacerbation at this time. We will continue his home Toprol. We will hold the losartan and spironolactone given his acute kidney injury as we gently hydrate him. - Lab Results Lab results reviewed: Yes Jordan Bones: 11/16/20 10:58 11/16/20 10:58 Core Measures - Anticipated LOS I expect patient to be DC'd or transferred within 96 hours.: Yes - Issues Hospital Issues and Management Plan: This is a 85-year-old male who presents with worsening weakness, fevers after being treated for urinary tract infection on an outpatient basis. He is found to be hyponatremic and have acute kidney injury. We will place in observation for IV fluids and IV antibiotics. - DVT/VTE - Prophylaxis VTE/DVT Device ordered at admit?: Yes VTE/DVT Prophylaxis med ordered at admit?: Yes
[2020-11-16 12:08] LABS: CORONAVIRUS 229E-RESP PCR NOT DETECTED; CORONAVIRUS HKU1-RESP PCR NOT DETECTED; CORONAVIRUS NL63-RESP PCR NOT DETECTED; CORONAVIRUS OC43-RESP PCR NOT DETECTED; HUMAN METAPNEUMOVIRUS NOT DETECTED; INFLUENZA A- RESP PCR PANEL NOT DETECTED; RHINOVIRUS/ENTEROVIRUS NOT DETECTED; SARS-CoV-2 -RESP PCR PANEL NOT DETECTED
[2020-11-16 12:09] LABS: B. PARAPERTUSSIS- RESP PCR PAN NOT DETECTED; B. PERTUSSIS- RESP PCR PANEL NOT DETECTED; C. PNEUMONIAE- RESP PCR PANEL NOT DETECTED; INFLUENZA B - RESP PCR PANEL NOT DETECTED; M. PNEUMONIAE- RESP PCR PANEL NOT DETECTED; PARAINFLUENZA VIRUS 1 NOT DETECTED; PARAINFLUENZA VIRUS 2 NOT DETECTED; PARAINFLUENZA VIRUS 3 NOT DETECTED; PARAINFLUENZA VIRUS 4 NOT DETECTED; RSV- RESP PCR PANEL NOT DETECTED
[2020-11-16 12:12] LABS: BACTERIA,URINE Few /HPF (None Seen); RBC,URINE 0-5 /HPF (0-5); SQUAMOUS EPITHELIAL CELL,UR FEW Squamous (<= Few)
[2020-11-16 12:44] LABS: ESTIMATED AVERAGE GLUCOSE 131 mg/dL (70-100); HEMOGLOBIN A1c% 6.2 % (4.27-6.07)
--- OUTSIDE RECORDS SUMMARY | 2020-11-16 12:49 | EXTERNAL MEDICAL SUMMARY RPT | Continuity of Care Document ---
:1935 Demographics Phone Unavailable Preferred Language Unknown Marital Status Unknown [employer] Affiliation Unknown Race Unknown Ethnic Group Unknown Author Organization [place] Address [address] [place] [address] Phone Problems date description facility [id number] [facility] [employer] Social History date description facility [id number]
--- NOTE | 2020-11-16 13:41 | PHARMACY PROGRESS NOTE ---
- Best Possible Medication History Admit Date and Time: 11/16/20 1151 Processed by: Pharmacy Medication History completed: Yes Patient Interview: Completed Secondary Source(s): Written medication list, Pharmacy records, Insurance records As the person ultimately responsible for medication therapy, providers are able to order a medication from an existing home medication list in [facility] via the "Reconcile Routine" prior to Confirmation of that medication by support associate. Such practice is discouraged except when the physician, in their clinical judgment, deems that a medical need exists for a medication without regard to previous use.
[2020-11-16] MEDS: ASPIRIN CHEW 81 MG TABLET PO SCH (13:43)
[2020-11-16] MEDS: CLOPIDOGREL 75 MG TABLET PO SCH (13:43)
[2020-11-16] MEDS: LACTATED RINGERS 1,000 ML IV SCH (14:54)
[2020-11-16 16:04] LABS: CALCIUM 8.5 mg/dL (8.5-10.3); CREATININE 1.5 mg/dL (0.6-1.2); POTASSIUM 4.5 mmol/L (3.5-5.0)
[2020-11-16] MEDS: SODIUM CHLORIDE FLUSH 0.9% 10 ML SYRINGE IVP SCH (17:29)
[2020-11-16] MEDS ORDERED: LACTATED RINGERS 1,000 ML IV ONE (17:43)
[2020-11-17] MEDS: LACTATED RINGERS 1,000 ML IV SCH (00:28)
[2020-11-17 04:42] LABS: BASOPHILS % (AUTO) 0.3 %; EOSINOPHILS % (AUTO) 0.5 %; HCT - HEMATOCRIT 33.4 % (42.0-52.0); LYMPHOCYTES % (AUTO) 8.3 %; MEAN CORPUSCULAR HEMOGLOBIN 30.1 pg (27.0-31.0); MEAN CORPUSCULAR HGB CONC 32.9 g/dL (32.0-36.0); MEAN CORPUSCULAR VOLUME 91.5 fL (80.0-94.0); MEAN PLATELET VOLUME 9.6 fL (7.4-11.4); MONOCYTES % (AUTO) 18.7 %; PLT - PLATELET COUNT 190 10^3/uL (130-450); RED BLOOD COUNT 3.65 10^6/uL (4.70-6.10); RED CELL DISTRIBUTION WIDTH 13.2 % (12.0-15.0); WHITE BLOOD COUNT 10.4 x10^3/uL (4.8-10.8)
[2020-11-17 04:49] LABS: ABNORMAL LYMPHS % (MANUAL) 0 %; BAND NEUTROPHILS % (MANUAL) 0 %
[2020-11-17 04:51] LABS: CALCIUM 8.4 mg/dL (8.5-10.3); CREATININE 1.2 mg/dL (0.6-1.2); POTASSIUM 4.5 mmol/L (3.5-5.0)
[2020-11-17 05:09] LABS: BASOPHILS # (MANUAL) 0.1 10^3/uL (0-0.1); BASOPHILS % (MANUAL) 1 %; DIFFERENTIAL COMMENT MANUAL DIFFERENTIAL; EOSINOPHILS # (MANUAL) 0.3 10^3/uL (0-0.7); LYMPHOCYTES % (MANUAL) 10 %; MONOCYTES # (MANUAL) 2.2 10^3/uL (0.0-1.0); NEUTROPHILS # (MANUAL) 6.8 10^3/uL (1.5-6.6); PLATELET ESTIMATE, MANUAL NORMAL (130-450,000) (NORMAL); PLATELET MORPHOLOGY NORMAL APPEARANCE (NORMAL); RBC MORPHOLOGY (MULTIPLE) NORMAL APPEARANCE (NORMAL); WBC MORPHOLOGY (MULTIPLE) NORMAL APPEARANCE (NORMAL)
[2020-11-17] MEDS: SODIUM CHLORIDE FLUSH 0.9% 10 ML SYRINGE IVP SCH ×2 (07:59→09:27)
[2020-11-17] MEDS ORDERED: cefTRIAXone 1 GM in SODIUM CHLORIDE 0.9% MINIBAG 100 ML IV SCH (09:00)
[2020-11-17] MEDS ORDERED: ENOXAPARIN 40 MG/0.4 ML SYRINGE SUBQ SCH (09:00)
[2020-11-17] MEDS: ASPIRIN CHEW 81 MG TABLET PO SCH (09:07)
[2020-11-17] MEDS: CLOPIDOGREL 75 MG TABLET PO SCH (09:07)
--- NOTE | 2020-11-17 10:45 | DISCHARGE SUMMARY ---
Discharge Summary Admit Date: 11/16/20 Discharge Date: 11/17/20 Discharging Provider: Pablo Ascencio Primary Care Provider: Teodoro Robert Code Status: Attempt Resuscitation Condition at Discharge: Stable Discharge Disposition: 01 Home, Self Care - DIAGNOSES Admission Diagnoses: Hyponatremia UTI Acute kidney injury Coronary artery disease Chronic heart failure with reduced ejection fraction Discharge Diagnoses with Status of Each Condition: Hyponatremia: Acute on Chronic. Improved. Patient's sodium level upon discharge is 131. For the past 5 years patient's average sodium level has been about 133 UTI: Acute. Patient did not tolerate Bactrim. Antibiotics switched to cefdinir 300mg po twice daily x7 days Acute kidney injury: Acute. Improved. Likely due to dehydration and or UTI. Creatinine upon discharge was 1.2 Coronary artery disease: Chronic. Continue patient's home medications. Chronic heart failure with reduced ejection fraction: Continue patient's home medications. - HPI History of Present Illness: This is a pleasant 85-year-old male with past medical history significant for coronary artery disease, chronic systolic heart failure with ejection fraction of 35%, hypertension, asthma who presents today complaining of weakness and fever. He states he felt fine over the weekend then on Friday he started to feel weak and unwell. He measured his temperature and it was 101 to 102 F. He called his primary care provider and he had labs obtained that evening and a urinalysis revealed pyuria with bacteriuria. He was started on Bactrim which he took that evening. He states he initially felt well the following day but then later on Friday and Friday, he continued to have nausea and vomiting. He also states that he had another fever yesterday with a temperature of around 101 F. He has been taking Tylenol which she takes chronically for back pain. He d enies any dysuria, urgency, frequency. Reports no abdominal pain. He has been having nausea and vomiting over the past 2 to 3 days. He has been able to keep down liquids but has not had any solid food. He has primarily been drinking Ensure. He is passing gas and is having bowel movements. Denies any diarrhea. He has noticed no blood with his emesis. He denies any chest pain, dyspnea. Reports no dizziness or lightheadedness. Denies any focal deficits, numbness, tingling. He reports no dysphagia or odynophagia. He reports no difficulty urinating and denies having decreased urine output. Of note, he was admitted back in August and he was found to have new heart failure and abnormal stress test then. He was transferred to [facility] in [place] and he underwent an angiogram and had 2 stents placed. He is on Plavix and aspirin. 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 He states he followed up with Dr. Robert and neurosurgeon at [facility] in [place]. He underwent an MRI and the plan is to monitor this for the time being and he will be seeing the neurosurgeon again in 6 months. In the emergency department, he was found to be afebrile with a temperature of 36.4 C. His heart rate was in the 70s and he was normotensive. He was not tachypneic and saturating well on room air. Labs were significant for sodium of 127, bicarbonate of 20, BUN of 49 and a creatinine of 1.5. His lactic acid was 2.3. Chest x-ray was unremarkable. He was given ceftriaxone IV and medicine was consulted for admission. I discussed goals of care with the patient and he would like to be a full code. Patient received 2 doses of Rocephin 1 g IV during his hospital stay. Upon discharge he was placed on cefdinir 300 mg p.o. twice daily x7 days. He was instructed to stop taking Bactrim. He received adequate hydration with IV normal saline throughout his overnight stay. He was Using good urine prior to discharge. His creatinine improved from 1.5 to 1.2. He ambulated around the floors using walking cane with no difficulties. Consequently he was being discharged home. He may follow-up with his primary care physician Dr. Teodoro Robert within 7 days or as needed. - ALLERGIES Allergies/Adverse Reactions: Allergies Allergy/AdvReac Type Severity Reaction Status Date / Time ciprofloxacin Allergy Unknown Verified 11/16/20 10:44 metronidazole [From Flagyl] Allergy Unknown Verified 11/16/20 10:44 Quinolones Allergy Unknown Verified 11/16/20 10:44 simvastatin Allergy Unknown Verified 11/16/20 10:44 - MEDICATIONS Home Medications: Ambulatory Orders Medication Instructions Recorded Confirmed Albuterol Sulfate [Proair Hfa 1 - 2 puffs INH Q4H PRN 10/23/15 11/16/20 Inhaler] Cholecalciferol (Vitamin D3) 25 mcg ORAL DAILY 12/31/18 11/16/20 [Vitamin D3] Magnesium Oxide [Magnesium] 500 mg ORAL QPM 12/31/18 11/16/20 Multivit-Min/FA/Lycopen/Lutein 1 each PO DAILY 07/18/20 11/16/20 [Centrum Silver Men Tablet] Baclofen [Lioresal] 5 mg PO DAILY PRN 08/19/20 11/16/20 Metoprolol Succinate [Toprol Xl] 12.5 mg PO DAILY #30 tablet 08/21/20 11/16/20 amLODIPine [Norvasc] 5 mg PO DAILY 30 Days #30 tablet 08/21/20 11/16/20 Aspirin [[place] Aspirin] 81 mg PO DAILY 11/16/20 11/16/20 Atorvastatin Calcium [Lipitor] 80 mg PO DAILY 11/16/20 11/16/20 Clopidogrel [Plavix] 75 mg DAILY 11/16/20 11/16/20 Diclofenac Sodium [Voltaren 1 applic TOP PRN PRN 11/16/20 11/16/20 Arthritis Pain] Furosemide [Lasix] 20 mg PO DAILY 11/16/20 11/16/20 Losartan [Cozaar] 100 mg PO DAILY 11/16/20 11/16/20 Mometasone/Formoterol [Dulera 200 2 puffs INH BID 11/16/20 11/16/20 Mcg-5 Mcg Inhaler] Nitroglycerin [Nitrostat] 0.4 mg PO PRN PRN 11/16/20 11/16/20 Spironolactone [Aldactone] 12.5 mg PO DAILY 11/16/20 11/16/20 Cefdinir 300 mg PO BID 7 Days #14 cap 11/17/20 - PHYSICAL EXAM AT DISCHARGE General Appearance: positive: No acute distress, Alert Eyes Bilateral: positive: PERRL, EOMI ENT: positive: No signs of dehydration Neck: positive: No JVD, Trachea midline Respiratory: positive: Chest non-tender, No respiratory distress, Breath sounds nml. negative: Wheezes, Rales, Rhonchi Cardiovascular: positive: Regular rate & rhythm, No murmur Abdomen: positive: Non-tender, No organomegaly, Nml bowel sounds, No distention. negative: Guarding, Rebound Rectal: positive: Non-tender Back: positive: Nml inspection Skin: positive: Color nml, No rash, Warm, Dry Extremities: positive: Non-tender, Full ROM, Nml appearance, No pedal edema Neurologic/Psychiatric: positive: Oriented x3, Mood/affect nml - LABS Result Diagrams: 11/17/20 04:22 11/17/20 04:22 - TIME SPENT Time Spent in Discharge (Minutes): 20
--- NOTE | 2020-11-17 10:51 | Discharge Plan ---
Discharge Plan Problem Reviewed?: Yes Disposition: Home, Self Care Condition: Stable Prescriptions: Cefdinir 300 mg PO BID 7 Days #14 cap Diet: Diabetic Activity Restrictions: Activity as Tolerated Assistance Devices: [facility] Concerns: You presented to the emergency department with complaint of weakness and fever. Your temperature was 36.4 in the emergency department. You were found to have a sodium level of 127 and a creatinine of 1.5. He also had a lactic acid of 2.3. You have been diagnosed with a UTI in the outpatient setting which was positive for E. coli. You were started on Bactrim for which she took 1 dose. You were admitted for acute kidney injury and weakness. You received IV hydration with normal saline and your renal function improved f rom 1.5-1.2. You were treated with Rocephin IV while in the hospital. Upon discharge she will be placed on Cefdinir 300 mg p.o. twice daily for 7 days. You are being discharged home in stable condition. You are advised to follow-up with your primary care physician within 7 to 10 days or as needed. This was explained to you, you expressed understanding and are in agreement with the plan. Plan of Treatment: You presented to the emergency department with complaint of weakness and fever. Your temperature was 36.4 in the emergency department. You were found to have a sodium level of 127 and a creatinine of 1.5. He also had a lactic acid of 2.3. You have been diagnosed with a UTI in the outpatient setting which was positive for E. coli. You were started on Bactrim for which she took 1 dose. You were admitted for acute kidney injury and weakness. You received IV hydration with normal saline and your renal function improved from 1.5-1.2. You were treated with Rocephin IV while in the hospital. Upon discharge she will be placed on Cefdinir 300 mg p.o. twice daily for 7 days. You are being discharged home in stable condition. You are advised to follow-up with your primary care physician within 7 to 10 days or as needed. This was explained to you, you expressed understanding and are in agreement with the plan. Care Goals: You presented to the emergency department with complaint of weakness and fever. Your temperature was 36.4 in the emergency department. You were found to have a sodium level of 127 and a creatinine of 1.5. He also had a lactic acid of 2.3. You have been diagnosed with a UTI in the outpatient setting which was positive for E. coli. You were started on Bactrim for which she took 1 dose. You were admitted for acute kidney injury and weakness. You received IV hydration with normal saline and your renal function improved from 1.5-1.2. You were treated with Rocephin IV while in the hospital. Upon discharge she will be placed on Cefdinir 300 mg p.o. twice daily for 7 days. You are being discharged home in stable condition. You are advised to follow-up with your primary care physician within 7 to 10 days or as needed. This was explained to you, you expressed understanding and are in agreement with the plan. Assessment: You presented to the emergency department with complaint of weakness and fever. Your temperature was 36.4 in the emergency department. You were found to have a sodium level of 127 and a creatinine of 1.5. He also had a lactic acid of 2.3. You have been diagnosed with a UTI in the outpatient setting which was positive for E. coli. You were started on Bactrim for which she took 1 dose. You were admitted for acute kidney injury and weakness. You received IV hydration with normal saline and your renal function improved from 1.5-1.2. You were treated with Rocephin IV while in the hospital. Upon discharge she will be placed on Cefdinir 300 mg p.o. twice daily for 7 days. You are being discharged home in stable condition. You are advised to follow-up with your primary care physician within 7 to 10 days or as needed. This was explained to you, you expressed understanding and are in agreement with the plan. No Smoking: If you smoke, Please STOP! Call for help. Follow-up with: Teodoro Robert MD [Primary Care Provider] -
[2020-11-17 11:25] VITALS: BP 145/67
== END 2020-11-17 14:09 | disposition home or self-care (01) ==
LOC: ED 10:32 → MS2 11:51
PROVIDERS: ADMIT Internal Medicine; ATTEND Internal Medicine
DX: E87.1 Hypo-osmolality and hyponatremia (principal); N39.0 Urinary tract infection, site not specified; B96.20 Unspecified Escherichia coli [E. coli] as the cause of diseases classified elsewhere; N17.9 Acute kidney failure, unspecified; I25.10 Atherosclerotic heart disease of native coronary artery without angina pectoris; I11.0 Hypertensive heart disease with heart failure; I50.22 Chronic systolic (congestive) heart failure; J45.909 Unspecified asthma, uncomplicated; Z95.5 Presence of coronary angioplasty implant and graft; E86.0 Dehydration; Z79.02 Long term (current) use of antithrombotics/antiplatelets; Z79.82 Long term (current) use of aspirin; D35.2 Benign neoplasm of pituitary gland; Z20.822 Contact with and (suspected) exposure to COVID-19
CPT/HCPCS: 36415; 71045; 80048; 80053; 81001; 83036; 83605; 83735; 84484; 85025; 87040; 87086; 87631; 93005; 96365; 96366; 96372; 99284; 99285; A9270; G0378; J1650; J7120; 0202U; 81003

== ENCOUNTER 2020-12-13 10:35 | Outpatient (CLI) | payer MEDICARE | END 2020-12-13 10:36 | disposition home or self-care (01) | LOC: LAB 10:35 | PROVIDERS: ATTEND Internal Medicine | DX: Z12.5 Encounter for screening for malignant neoplasm of prostate (principal) | CPT/HCPCS: 36415; G0103; 84153 ==

== ENCOUNTER 2021-03-12 14:13 | Outpatient (CLI) | payer MEDICARE ==
[2021-03-12 14:49] LABS: CALCIUM 9.4 mg/dL (8.5-10.3); CREATININE 1.2 mg/dL (0.6-1.2); POTASSIUM 4.8 mmol/L (3.5-5.0)
== END 2021-03-12 14:14 | disposition home or self-care (01) ==
LOC: LAB 14:13
PROVIDERS: ATTEND Internal Medicine Cardiovascular Disease
DX: Z79.899 Other long term (current) drug therapy (principal)
CPT/HCPCS: 36415; 80048

== ENCOUNTER 2021-07-14 08:50 | Outpatient (CLI) | payer MEDICARE ==
[2021-07-14 09:07] LABS: BASOPHILS # (AUTO) 0.1 10^3/uL (0.0-0.1); BASOPHILS % (AUTO) 0.7 %; EOSINOPHILS # (AUTO) 0.4 10^3/uL (0.0-0.7); EOSINOPHILS % (AUTO) 4.7 %; HCT - HEMATOCRIT 37.4 % (42.0-52.0); HGB - HEMOGLOBIN 12.3 g/dL (14.0-18.0); LYMPHOCYTES # (AUTO) 2.5 10^3/uL (1.5-3.5); MEAN CORPUSCULAR HEMOGLOBIN 30.7 pg (27.0-31.0); MEAN CORPUSCULAR HGB CONC 32.9 g/dL (32.0-36.0); MEAN CORPUSCULAR VOLUME 93.3 fL (80.0-94.0); MEAN PLATELET VOLUME 8.7 fL (7.4-11.4); NEUTROPHILS # (AUTO) 4.4 10^3/uL (1.5-6.6); NEUTROPHILS % (AUTO) 52.4 %; PLT - PLATELET COUNT 260 10^3/uL (130-450); RED BLOOD COUNT 4.01 10^6/uL (4.70-6.10); RED CELL DISTRIBUTION WIDTH 13.2 % (12.0-15.0); WHITE BLOOD COUNT 8.3 x10^3/uL (4.8-10.8)
[2021-07-14 09:19] LABS: ESTIMATED AVERAGE GLUCOSE 128 mg/dL (70-100); HEMOGLOBIN A1c% 6.1 % (4.27-6.07)
[2021-07-14 09:20] LABS: ALBUMIN/GLOBULIN RATIO 1.1 (1.0-2.2); BILIRUBIN,TOTAL 0.5 mg/dL (0.2-1.0); CALCIUM 9.6 mg/dL (8.5-10.3); CREATININE 1.4 mg/dL (0.6-1.2); POTASSIUM 4.7 mmol/L (3.5-5.0); TOTAL PROTEIN 7.5 g/dL (6.7-8.2)
[2021-07-14 10:07] LABS: FOLLICLE STIMULATING HORMONE 62.56 mIU/mL
[2021-07-14 10:08] LABS: LUTEINIZING HORMONE 18.97 mIU/mL
== END 2021-07-14 08:51 | disposition home or self-care (01) ==
LOC: LAB 08:50
PROVIDERS: ATTEND Internal Medicine
DX: I10 Essential (primary) hypertension (principal); R73.9 Hyperglycemia, unspecified; E29.1 Testicular hypofunction
CPT/HCPCS: 36415; 80053; 83001; 83002; 83036; 85025

== ENCOUNTER 2021-09-28 08:16 | Outpatient (CLI) | payer MEDICARE ==
[2021-09-28 08:55] LABS: BUN - BLOOD UREA NITROGEN 41 mg/dL (6-20); CALCIUM 9.5 mg/dL (8.5-10.3); CARBON DIOXIDE - CO2 25 mmol/L (21-32); CHLORIDE 102 mmol/L (101-111); CHOL/HDL RATIO 2.4 (<5.0); CHOLESTEROL 171 mg/dL; CREATININE 1.3 mg/dL (0.6-1.2); GFR - MDRD 52 (>89); GLUCOSE 113 mg/dL (70-100); HDL CHOLESTEROL 72 mg/dL; LDL CHOLESTEROL,CALCULATED 85 mg/dL; LDL/HDL RATIO 1.2 (<3.6); PHOSPHORUS 3.7 mg/dL (2.5-4.6); POTASSIUM 4.6 mmol/L (3.5-5.0); SODIUM 137 mmol/L (135-145); TRIGLYCERIDES 68 mg/dL; VLDL CHOLESTEROL 14 mg/dL
== END 2021-09-28 08:17 | disposition home or self-care (01) ==
LOC: LAB 08:16
PROVIDERS: ATTEND Internal Medicine Cardiovascular Disease
DX: E78.49 Other hyperlipidemia (principal); I25.5 Ischemic cardiomyopathy; Z98.61 Coronary angioplasty status; I25.10 Atherosclerotic heart disease of native coronary artery without angina pectoris; I10 Essential (primary) hypertension; I21.4 Non-ST elevation (NSTEMI) myocardial infarction
CPT/HCPCS: 36415; 80061; 80069; 83721

== ENCOUNTER 2022-07-03 14:28 | Outpatient (CLI) | payer MEDICARE ==
--- NOTE | 2022-07-03 16:45 | XRAY Report ---
PROCEDURE: Chest 2 View X-Ray INDICATIONS: COUGH TECHNIQUE: 2 views of the chest were acquired. COMPARISON: Chest radiographs 11/16/2020, 08/18/2020. FINDINGS: Surgical changes and devices: None. Lungs and pleura: No pleural effusions or pneumothorax. Patchy opacities are present at the right aravind ng base. Mediastinum: Mediastinal contours are normal. Heart size is normal. Bones and chest wall: No suspicious bony abnormalities. Soft tissues appear unremarkable. IMPRESSION: Right basilar opacities are present that could represent pneumonia and/or aspiration in the appropria te clinical setting. Follow-up to ensure resolution may be helpful, for example 6-8 weeks after compl etion of therapy. Reviewed by: Jayson Moreno MD on 07/03/2022 3:44 PM [facility] Approved by: Jayson Moreno MD on 07/03/2022 3:44 PM [place] Station ID: [id number]
== END 2022-07-03 14:29 | disposition home or self-care (01) ==
LOC: DI 14:28
PROVIDERS: ATTEND Physician Assistant
DX: R05.9 Cough, unspecified (principal); R09.89 Other specified symptoms and signs involving the circulatory and respiratory systems

== ENCOUNTER 2022-08-16 09:19 | Outpatient (CLI) | payer MEDICARE ==
--- NOTE | 2022-08-16 10:46 | XRAY Report ---
PROCEDURE: Chest 2 View X-Ray INDICATIONS: ABN XRAY TECHNIQUE: 2 views of the chest were acquired. COMPARISON: CXR 07/03/2022. CT pulmonary angiogram 07/18/2020. FINDINGS: Surgical changes and devices: None. Lungs and pleura: No pleural effusions or pneumothorax. Lungs appear clear. Right basilar opacity i s improved. Mediastinum: Mediastinal contours are normal. Heart size is normal. Bones and chest wall: No suspicious bony abnormalities. Soft tissues appear unremarkable. IMPRESSION: Right basilar opacity is improved. Reviewed by: Delfino Arellano MD on 08/16/2022 10:45 AM [facility] Approved by: Delfino Arellano MD on 08/16/2022 10:45 AM [facility] Station ID: [id number]
== END 2022-08-16 09:20 | disposition home or self-care (01) ==
LOC: DI 09:19
PROVIDERS: ATTEND Physician Assistant
DX: R91.8 Other nonspecific abnormal finding of lung field (principal)

== ENCOUNTER 2022-09-13 10:15 | Outpatient (CLI) | payer MEDICARE ==
--- NOTE | 2022-09-13 11:57 | XRAY Report ---
PROCEDURE: Chest 2 View X-Ray INDICATIONS: ABN XRAY TECHNIQUE: 2 views of the chest were acquired. COMPARISON: X-ray 07/03/2022, 08/16/2022 FINDINGS: Surgical changes and devices: None. Lungs and pleura: No pleural effusions or pneumothorax. Lungs are clear. Mediastinum: Mediastinal contours are normal. Heart size is normal. Bones and chest wall: No suspicious bony abnormalities. Soft tissues appear unremarkable. IMPRESSION: Resolved right lower lobe opacity. Reviewed by: Zechariah Laughlin on 09/13/2022 11:55 AM [facility] Approved by: Zechariah Laughlin on 09/13/2022 11:55 AM [facility] Station ID: [id number]
== END 2022-09-13 10:16 | disposition home or self-care (01) ==
LOC: DI 10:15
PROVIDERS: ATTEND Physician Assistant
DX: Z09 Encounter for follow-up examination after completed treatment for conditions other than malignant neoplasm (principal); Z87.09 Personal history of other diseases of the respiratory system

== ENCOUNTER 2023-01-06 12:51 | Outpatient (CLI) | payer MEDICARE ==
--- NOTE | 2023-01-07 09:46 | MRI Report ---
PROCEDURE: LUMBAR SPINE WO INDICATIONS: LUMBAR RADICULOPATHY TECHNIQUE: Noncontrast sagittal T1 spin echo and T2 fast echo, sagittal STIR, axial T1 and T2 fast spin echo thr ough the lumbar spine. In cases with scoliosis, additional coronal T2 fast spin echo may be performe d. COMPARISON: Plain film 06/09/2020, 07/20/2020, chest CTA 07/18/2020 FINDINGS: Image quality: Excellent. Alignment and Curvature: Grade 1 anterolisthesis L4 on 5 and trace anterolisthesis L3 on 4. Trace ret rolisthesis L1 on 2. Overall minor S-shaped curvature of the lumbar spine. Bone Marrow: There is a severe compression fracture of L1, progressed since 2019. There is about 5 m m of retropulsion of the posterior column into the spinal canal. Moderate central superior endplate c ompression fracture of T11 with a superior endplate Schmorl's node. Marrow signal is normal without a cute edema.. Spinal Cord: Conus medullaris terminates at the L1 level. Visualized cord demonstrates normal signa l and size. Paraspinous Soft Tissues: No paravertebral masses. T12-L1: Mild facet arthropathy. No significant central canal narrowing despite mild retropulsion of the posterior cortex. L1-L2: Mild facet arthropathy. Broad-based right foraminal disc protrusion. Moderate right foramin al narrowing. L2-L3: Mild diffuse circumferential disc bulge. Moderate facet arthropathy. There are small synovi al cysts along the inferior aspect of both facet joints. Mild bilateral foraminal narrowing. L3-L4: Moderate diffuse circumferential disc bulge and moderate facet arthropathy. Mild right john inal narrowing. L4-L5: Prominent broad-based posterior disc bulge superimposed on circumferential disc bulge. Sever e facet arthropathy. [id number] right foraminal narrowing. L5-S1: Moderate facet arthropathy. IMPRESSION: 1. Progression of severe L1 compression fracture with mild retropulsion of the posterior cortex but n o significant central canal or foraminal stenosis. 2. Development of of T11 central compression fracture, presumably degenerative. 3. There are levels of moderate right foraminal narrowing, L1-2 and L4-5 which may result in right L1 and/or L4 radiculopathy. Correlate clinically. 4. Multilevel degenerative disc bulge. 5. Multilevel spondylolisthesis without significant change, specifically at the L4-5 level. Reviewed by: Courtney Montelongo MD on 01/07/2023 9:45 AM PDT Approved by: Courtney Montelongo MD on 01/07/2023 9:45 AM PDT Station ID: [id number]
== END 2023-01-06 12:52 | disposition home or self-care (01) ==
LOC: DI 12:51
PROVIDERS: ATTEND Physical Medicine & Rehabilitation
DX: M48.56XA Collapsed vertebra, not elsewhere classified, lumbar region, initial encounter for fracture (principal); M48.061 Spinal stenosis, lumbar region without neurogenic claudication; M54.16 Radiculopathy, lumbar region; M48.54XA Collapsed vertebra, not elsewhere classified, thoracic region, initial encounter for fracture; M51.36 Other intervertebral disc degeneration, lumbar region; M51.26 Other intervertebral disc displacement, lumbar region; M43.16 Spondylolisthesis, lumbar region

== ENCOUNTER 2023-02-11 09:51 | Outpatient (CLI) | payer MEDICARE | END 2023-02-11 23:59 | disposition critical access hospital (66) | LOC: EMS 09:51 | DX: R55 Syncope and collapse (principal); R11.0 Nausea; R00.1 Bradycardia, unspecified | CPT/HCPCS: A0425; A0429 ==

== ENCOUNTER 2023-04-16 19:24 | Emergency (ER) | payer MEDICARE ==
--- NOTE | 2023-04-16 19:41 | ED Physician Documentation ---
PD HPI HEAD INJURY - Stated complaint Stated Complaint: GLF/HEAD LAC - Chief complaint Chief Complaint: Trauma Hd/Nk - History obtained from History obtained from: Patient, Family - Additional information Additional information: He was sitting on his wheeled walker out in the driveway which was sloped. He fell over backwards hitting his upper back against the ground and then his head against the side of the house. This was at 7 PM tonight. He did not lose consciousness. He has a wound on the back of his head. He is not anticoagulated. He is up-to-date on tetanus. No other injuries. PD PAST MEDICAL HISTORY - Past Medical History Cardiovascular: Congestive heart failure, Hypertension, High cholesterol, Coronary artery disease Respiratory: Asthma Neuro: None Endocrine/Autoimmune: None GI: GERD, GI bleed : Nocturia HEENT: None Psych: None Musculoskeletal: Chronic back pain Derm: None - Past Surgical History Past Surgical History: Yes General: Cholecystectomy, Appendectomy Cardiovascular: Coronary stent, Cardiac catheterization HEENT: Cataracts, Tonsil/Adenoidectomy Derm: Skin cancer surgery - Present Medications Home Medications: Ambulatory Orders Medication Instructions Recorded Confirmed Albuterol Sulfate [Proair Hfa 1 - 2 puffs INH Q4H PRN 10/23/15 02/11/23 Inhaler] Cholecalciferol (Vitamin D3) 25 mcg ORAL DAILY 12/31/18 02/11/23 [Vitamin D3] Magnesium Oxide [Magnesium] 500 mg ORAL QPM 12/31/18 02/11/23 Mv-Min/Folic/K1/Lycopen/Lutein 1 each PO DAILY 07/18/20 02/11/23 [Centrum Silver Men Tablet] amLODIPine [Norvasc] 5 mg PO DAILY 30 Days #30 tablet 08/21/20 02/11/23 Aspirin [Thurston Aspirin] 81 mg PO DAILY 11/16/20 02/11/23 Atorvastatin Calcium [Lipitor] 80 mg PO DAILY 11/16/20 02/11/23 Diclofenac Sodium [Voltaren 1 applic TOP PRN PRN 11/16/20 02/11/23 Arthritis Pain] Furosemide [Lasix] 20 mg PO DAILY 11/16/20 02/11/23 Losartan [Cozaar] 100 mg PO DAILY 11/16/20 02/11/23 Mometasone/Formoterol [Dulera 200 2 puffs INH BID 11/16/20 02/11/23 Mcg-5 Mcg Inhaler] Nitroglycerin [Nitrostat] 0.4 mg PO PRN PRN 11/16/20 02/11/23 Spironolactone [Aldactone] 12.5 mg PO DAILY 11/16/20 02/11/23 Azelastine HCl 137 mcg NS DAILY 02/11/23 02/11/23 HYDROcod/ACETAM 5/325 [Keller 5/325] 1 - 2 tablet PO Q6H PRN #14 tablet 02/11/23 Metoprolol Succinate [Toprol Xl] 25 mg PO DAILY 02/11/23 02/11/23 Mirabegron [Myrbetriq] 25 mg PO DAILY PM 02/11/23 02/11/23 - Allergies Allergies/Adverse Reactions: Allergies Allergy/AdvReac Type Severity Reaction Status Date / Time ciprofloxacin Allergy Unknown Verified 04/16/23 19:31 metronidazole [From Flagyl] Allergy Unknown Verified 04/16/23 19:31 Quinolones Allergy Unknown Verified 04/16/23 19:31 simvastatin Allergy Unknown Verified 04/16/23 19:31 - Social History Does the pt smoke?: No Smoking Status: Never smoker Does the pt drink ETOH?: Yes Does the pt have substance abuse?: No - Immunizations Immunizations are current?: Yes - POLST Patient has POLST: No POLST Status: Full Code PD ED PE NORMAL - Vitals Vital signs reviewed: Yes - General General: Alert and oriented X 3, No acute distress - HEENT HEENT: PERRL, EOMI, Other (Abrasion on the upper occiput/vertex of the head) - Neck Neck: No bony TTP - Cardiac Cardiac: RRR, No murmur - Respiratory Respiratory: No respiratory distress, Clear bilaterally - Abdomen Abdomen: Non tender - Back Back: No spinal TTP - Neuro Neuro: Alert and oriented X 3 Eye Opening: Spontaneous Motor: Obeys Commands Verbal: Oriented GCS Score: 15 Results - Vitals Vitals: Vital Signs - 24 hr 04/16/23 04/16/23 19:31 19:33 Temperature 36.5 C Heart Rate 55 L Respiratory 16 18 Rate Blood Pressure 136/47 H O2 Saturation 96 98 Oxygen O2 Source Room air - Rads (name of study) CT of the head showing volume loss and mild chronic white matter small vessel ischemic changes Relevant Findings:: Final report received, EMP independent interpretation of test Procedures - Laceration (location) Occiput Length in cm: 1 Wound type: Linear Wound preparation: Irrigated copiously NS Skin layer closure: Dermabond Other: Tetanus UTD Departure - Departure Disposition: 01 Home, Self Care Clinical Impression: Injury of head and neck Qualifiers: Encounter type: initial encounter Qualified Code(s): S09.90XA - Unspecified injury of head, initial encounter Back pain Qualifiers: Back pain location: thoracic back pain Chronicity: acute Back pain laterality: midline Qualified Code(s): M54.6 - Pain in thoracic spine Fall Qualifiers: Encounter type: initial encounter Qualified Code(s): W19.XXXA - Unspecified fall, initial encounter Scalp abrasion Qualifiers: Encounter type: initial encounter Qualified Code(s): S00.01XA - Abrasion of scalp, initial encounter Condition: Stable Record reviewed to determine appropriate education?: Yes Instructions: ED Head Injury Closed Forms: PCP List
[2023-04-16] MEDS ORDERED: ACETAMINOPHEN 500 MG TABLET PO STA (20:51)
--- NOTE | 2023-04-16 21:04 | CT Report ---
PROCEDURE: HEAD WO INDICATIONS: head/back inj TECHNIQUE: Noncontrast 4.5 mm thick angled axial sections acquired from the foramen magnum to the vertex. For r adiation dose reduction, the following was used: automated exposure control, adjustment of mA and/or kV according to patient size. COMPARISON: Head CT 07/18/2020. FINDINGS: Image quality: Excellent. CSF spaces: There is moderate cerebral volume loss with prominence of the ventricles and sulci. Basa l cisterns are patent. No extra-axial fluid collections. Brain: No intracranial hemorrhage, mass, or mass effect. Rose-white matter interface is preserved. T here are subcortical and periventricular white matter hypodensities consistent with mild chronic smal l vessel ischemic changes. Skull and face: Calvarium and visualized facial bones are intact, without suspicious lesions. Sinuses: Visualized sinuses and mastoids are clear. IMPRESSION: 1. No acute intracranial abnormality. 2. Moderate cerebral volume loss and mild chronic white matter small vessel ischemic changes. Reviewed by: Jann Hurley MD on 04/16/2023 9:02 PM PDT Approved by: Jann Hurley MD on 04/16/2023 9:02 PM PDT Station ID: [id number]
--- NOTE | 2023-04-16 21:10 | CT Report ---
PROCEDURE: CERVICAL SPINE WO INDICATIONS: head/back inj TECHNIQUE: Noncontrast 3 mm thick sections acquired from the skull base to the T4 level. Sagittal and coronal r eformats were then constructed. For radiation dose reduction, the following was used: automated exp osure control, adjustment of mA and/or kV according to patient size. COMPARISON: CT neck 07/20/2020. FINDINGS: Image quality: Excellent. Bones: There is a mild superior endplate compression deformity of the T1 vertebral body anteriorly w hich demonstrates slight interval increased loss of height compared to the prior CT of 07/20/2020. El sewhere, no acute fracture or subluxation. There is straightening of cervical lordosis. There is mini mal anterolisthesis at C5-C6. There is fusion of the facet joints at multiple levels throughout the c ervical spine. Mild to moderate degenerative disc disease also demonstrated throughout the cervical s pine. Visualized superior ribs are intact. Soft tissues: Prevertebral soft tissues are normal in thickness. No paravertebral hematomas. No ap ical pneumothoraces. IMPRESSION: 1. No definite acute fracture or subluxation. 2. Mild superior endplate compression deformity of the T1 vertebral body anteriorly redemonstrated wi th slight increased loss of height compared to the prior study of 07/20/2020. Reviewed by: Jann Hurley MD on 04/16/2023 9:08 PM PDT Approved by: Jann Hurley MD on 04/16/2023 9:08 PM PDT Station ID: [id number]
--- NOTE | 2023-04-16 21:15 | CT Report ---
PROCEDURE: THORACIC SPINE WO INDICATIONS: head/back inj TECHNIQUE: Noncontrast 3 mm thick sections acquired through the region of interest in the thoracic spine. Sagit rodney and coronal reformats were then constructed. For radiation dose reduction, the following was used : automated exposure control, adjustment of mA and/or kV according to patient size. COMPARISON: MRI lumbar spine 01/06/2023, CT neck 07/20/2020. FINDINGS: Image quality: Diagnostic. Bones: No definite acute fracture or subluxation. There is a severe compression fracture of the L1 v ertebral body as well as a mild superior endplate compression fracture of the T11 vertebral body whic h appear similar compared to the prior MRI. A mild superior endplate compression deformity of the T1 vertebral body is also redemonstrated with slight increased loss of height compared to the prior CT o f 07/20/2020. There is mild posterior displacement along the superior endplate of the T11 and L1 vert ebral bodies with associated mild bony spinal canal narrowing. Soft tissues: No paravertebral masses or hematomas. Visualized posteromedial lungs demonstrate mild scarring in the lung bases. IMPRESSION: 1. No definite acute fracture or subluxation. 2. Severe compression fracture of the L1 vertebral body and mild superior endplate compression deform ity of the T11 and T1 vertebral bodies redemonstrated. Reviewed by: Jann Hurley MD on 04/16/2023 9:14 PM PDT Approved by: Jann Hurley MD on 04/16/2023 9:14 PM PDT Station ID: [id number]
[2023-04-16 21:35] VITALS: BP 147/66; O2SAT 96
== END 2023-04-16 21:35 | disposition home or self-care (01) ==
LOC: ED 19:24
DX: S00.01XA Abrasion of scalp, initial encounter (principal); W07.XXXA Fall from chair, initial encounter; Y92.007 Garden or yard of unspecified non-institutional (private) residence as the place of occurrence of the external cause; I10 Essential (primary) hypertension; M54.6 Pain in thoracic spine
CPT/HCPCS: 12001; 70450; 72125; 72128; 99284; A9270

== ENCOUNTER 2023-05-14 09:50 | Outpatient (CLI) | payer MEDICARE ==
--- NOTE | 2023-05-14 15:46 | DEXA Report ---
PROCEDURE: Dexa Spine and/or Hip INDICATIONS: FX OF THORACIC SPINE TECHNIQUE: Dual energy x-ray absorptiometry (DXA) was performed on a [employer] System. Regions measur ed are the AP Spine, femoral neck, and if needed forearm. COMPARISON: None. FINDINGS: Lumbar Spine: Bone Mineral Density 1.245 g/cm/cm,T score 0.2. Left Femoral Neck: Bone Mineral Density 0.790 g/cm/cm, T score -2.2. Left Hip: Bone Mineral Density 0.955 g/cm/cm,T score -1.0. (T score greater or equal to -1.0: NORMAL) (T score from -1.1 to -2.4: OSTEOPENIA) (T score less than or equal to -2.5 to: OSTEOPOROSIS) Impression: By WHO criteria, this patient has low bone density (osteopenia). Patients with diagnosis of osteoporosis or osteopenia should have regular bone mineral density assess ment. For those eligible for Medicare, routine testing is allowed once every 2 years. Testing frequ ency can be increased for patients who have rapidly progressing disease or for those who are receivin g medical therapy to restore bone mass. Reviewed by: Jayson Faulkner MD on 05/14/2023 3:45 PM PDT Approved by: Jayson Faulkner MD on 05/14/2023 3:45 PM PDT Station ID: [id number]
== END 2023-05-14 09:51 | disposition home or self-care (01) ==
LOC: DI 09:50
PROVIDERS: ATTEND Physical Medicine & Rehabilitation
DX: S22.010A Wedge compression fracture of first thoracic vertebra, initial encounter for closed fracture (principal); M85.80 Other specified disorders of bone density and structure, unspecified site

== ENCOUNTER 2023-06-15 11:14 | Outpatient (CLI) | payer MEDICARE ==
--- NOTE | 2023-06-15 20:04 | Ultrasound Report ---
PROCEDURE: Bladder INDICATIONS: Lower urinary tract symptoms. TECHNIQUE: Real-time scanning was performed of the bladder, with image documentation. COMPARISON: No prior ultrasounds of the bladder are available for comparison. Correlation is made wi th prior CT, 12/31/2018 and 07/24/2020. FINDINGS: Bladder: Pre-void bladder volume is 240 mL. Post-void residual is 103 mL. Pre-void images demonstr ate no intraluminal masses or stones. The bladder diverticulum can be seen on the right, measuring ab out 1 cm. On pre-void images, both ureteral jets are noted with color Doppler interrogation. (Of not e, ureteral jets may not be detectable in up to 25% of cases due to insufficient differences in speci fic gravity between ureteral and bladder urine). Miscellaneous: No free pelvic fluid. The prostate measures 3.2 x 2.5 x 3.4 cm. IMPRESSION: Moderate postvoid residual, 103 cc. 1 cm bladder diverticulum seen on the right. Reviewed by: Raul Domingo MD on 06/15/2023 7:02 PM [facility] Approved by: Raul Domingo MD on 06/15/2023 7:02 PM [facility] Station ID: [id number]
== END 2023-06-15 11:15 | disposition home or self-care (01) ==
LOC: DI 11:14
PROVIDERS: ATTEND Student in an Organized Health Care Education/Training Program
DX: N32.3 Diverticulum of bladder (principal)

== ENCOUNTER 2024-02-27 11:23 | Day surgery (SDC) | payer MEDICARE ==
[2024-02-27] MEDS: LACTATED RINGERS 1,000 ML IV ONE ×2 (11:35→13:55)
--- NOTE | 2024-02-27 12:32 | ANESTHESIA ---
Pre-Anesthesia VS, & Labs - Diagnosis early filling, vomiting - Procedure EGD Vital Signs: Temp Pulse Resp BP Pulse Ox O2 Flow Rate 36.6 C 51 L 16 118/61 97 02/27/24 11:58 02/27/24 11:58 02/27/24 11:58 02/27/24 11:58 02/27/24 11:58 Height: 6 ft Weight (kg): 88.45 kg Body Mass Index: 26.4 BMI Classification: Overweight - NPO >8 hours Home Medications and Allergies Home Medications: Ambulatory Orders Alendronate [Fosamax] 70 mg PO Q7D 02/26/24 Azelastine HCl [Astepro Allergy] 205.5 mcg NS BID 02/26/24 Omeprazole 20 mg PO BID 02/26/24 Prevagen 1 tab PO DAILY 02/26/24 Albuterol Sulfate [Proair Hfa Inhaler] 1 - 2 puffs INH Q4H PRN 10/23/15 Cholecalciferol (Vitamin D3) [Vitamin D3] 125 mcg ORAL DAILY 12/31/18 Magnesium Oxide [Magnesium] 500 mg ORAL QPM 12/31/18 Mv-Min/Folic/K1/Lycopen/Lutein [Centrum Silver Men Tablet] 1 each PO DAILY 07/18/20 Aspirin [[place]ills Aspirin] 81 mg PO DAILY 11/16/20 Atorvastatin Calcium [Lipitor] 80 mg PO DAILY 11/16/20 Diclofenac Sodium [Voltaren Arthritis Pain] 1 applic TOP PRN PRN 11/16/20 Furosemide [Lasix] 20 mg PO DAILY 11/16/20 Losartan [Cozaar] 100 mg PO DAILY 11/16/20 Nitroglycerin [Nitrostat] 0.4 mg PO PRN PRN 11/16/20 Spironolactone [Aldactone] 12.5 mg PO DAILY 11/16/20 Metoprolol Succinate [Toprol Xl] 25 mg PO DAILY 02/11/23 Mirabegron [Myrbetriq] 50 mg PO DAILY PM 02/11/23 Alendronate [Fosamax] 70 mg PO Q7D 02/26/24 Azelastine HCl [Astepro Allergy] 205.5 mcg NS BID 02/26/24 Omeprazole 20 mg PO BID 02/26/24 Prevagen 1 tab PO DAILY 02/26/24 Allergies/Adverse Reactions: Allergies Allergy/AdvReac Type Severity Reaction Status Date / Time ciprofloxacin Allergy Unknown Verified 04/16/23 19:31 metronidazole [From Flagyl] Allergy Unknown Verified 04/16/23 19:31 Quinolones Allergy Unknown Verified 04/16/23 19:31 simvastatin Allergy Unknown Verified 04/16/23 19:31 Anes History & Medical History - Anesthetic History Anesthesia Complications: reports: No previous complications - Medical History Cardiovascular: reports: Congestive heart failure, Hypertension, High cholesterol, Coronary artery disease, [place] Pulmonary: reports: Asthma, Pneumonia Gastrointestinal: reports: GERD, GI bleed, Ulcerative colitis Urinary: reports: Benign prostate hypertrophy, Incontinence, Nocturia Neuro: reports: None Musculoskeletal: reports: Osteoarthritis, Osteopenia, Chronic back pain Endocrine/Autoimmune: reports: None Blood Disorders: reports: None Skin: reports: None Smoking Status: Never smoker - Surgical History General: reports: Cholecystectomy, Appendectomy, Colonoscopy Eyes Ears Nose Throat (EENT): reports: Cataracts, Tonsil/Adenoidectomy Cardiothoracic: reports: Coronary stent, Cardiac catheterization Dermatologic: reports: Skin cancer surgery Exam General: Alert, Oriented x3, Cooperative Dental: WNL Mouth Opening: Greater than 4 Fingerbreadths Neck Mobility: Normal Mallampati classification: II Thyromental Distance: greater than 6 cm Respiratory: Decreased breath sounds Cardiovascular: Regular rate Plan Anesthesia Type: Total IV Consent for Procedure(s) Verified and Reviewed: Yes Code Status: Attempt Resuscitation ASA classification: 3-Severe systemic disease Is this case an emergency?: No
[2024-02-27] MEDS ORDERED: PROPOFOL 200 MG/20 ML VIAL IVP ONE (13:11)
--- NOTE | 2024-02-27 14:03 | ANESTHESIA POST OP EVALUATION ---
Anesthesia Post Eval - Post Anesthesia Eval Vitals: Last Vital Signs Temp 36.6 C 02/27/24 11:58 Pulse 51 L 02/27/24 11:58 Resp 16 02/27/24 11:58 BP 118/61 02/27/24 11:58 Pulse Ox 97 02/27/24 11:58 O2 Flow Rate CV Function Including HR & BP: Stable Pain Control: Satisfactory Nausea & Vomiting: Negative Mental Status: Baseline Respiratory Status: Airway Patent Hydration Status: Satisfactory Anesthesia Complications: None
[2024-02-27 14:23] VITALS: BP 125/60; O2SAT 100
== END 2024-02-27 11:24 | disposition home or self-care (01) ==
LOC: SDS 11:23
PROVIDERS: ATTEND Surgery
PROC: 0DB78ZX Excision of Stomach, Pylorus, Via Natural or Artificial Opening Endoscopic, Diagnostic (ICD-10-PCS; 2024-02-27)
PROC: 0DB28ZX Excision of Middle Esophagus, Via Natural or Artificial Opening Endoscopic, Diagnostic (ICD-10-PCS; 2024-02-27)
PROC: 0DB38ZX Excision of Lower Esophagus, Via Natural or Artificial Opening Endoscopic, Diagnostic (ICD-10-PCS; principal; 2024-02-27 12:30)
DX: R11.2 Nausea with vomiting, unspecified (principal); R68.81 Early satiety; K44.9 Diaphragmatic hernia without obstruction or gangrene; K22.2 Esophageal obstruction; K29.50 Unspecified chronic gastritis without bleeding; I11.0 Hypertensive heart disease with heart failure; I50.9 Heart failure, unspecified; I25.2 Old myocardial infarction; Z95.5 Presence of coronary angioplasty implant and graft; I25.10 Atherosclerotic heart disease of native coronary artery without angina pectoris; J45.909 Unspecified asthma, uncomplicated
CPT/HCPCS: 43239; J7120

== ENCOUNTER 2024-03-29 14:15 | Outpatient (CLI) | payer MEDICARE | END 2024-03-29 23:59 | disposition critical access hospital (66) | LOC: EMS 14:15 | DX: R55 Syncope and collapse (principal); R00.1 Bradycardia, unspecified | CPT/HCPCS: A0425; A0427 ==

== ENCOUNTER 2024-03-29 14:40 | Emergency (ER) | payer MEDICARE ==
[2024-03-29 15:36] LABS: BASOPHILS # (AUTO) 0.1 10^3/uL (0.0-0.1); BASOPHILS % (AUTO) 1.1 %; EOSINOPHILS # (AUTO) 0.9 10^3/uL (0.0-0.7); EOSINOPHILS % (AUTO) 12.3 %; HCT - HEMATOCRIT 30.7 % (42.0-52.0); HGB - HEMOGLOBIN 10.5 g/dL (14.0-18.0); LYMPHOCYTES # (AUTO) 2.2 10^3/uL (1.5-3.5); LYMPHOCYTES % (AUTO) 31.1 %; MEAN CORPUSCULAR HEMOGLOBIN 29.5 pg (27.0-31.0); MEAN CORPUSCULAR HGB CONC 34.2 g/dL (32.0-36.0); MEAN CORPUSCULAR VOLUME 86.2 fL (80.0-94.0); MEAN PLATELET VOLUME 9.6 fL (7.4-11.4); MONOCYTES # (AUTO) 1.3 10^3/uL (0.0-1.0); MONOCYTES % (AUTO) 19.1 %; NEUTROPHILS # (AUTO) 2.5 10^3/uL (1.5-6.6); PLT - PLATELET COUNT 238 10^3/uL (130-450); RED BLOOD COUNT 3.56 10^6/uL (4.70-6.10); RED CELL DISTRIBUTION WIDTH 12.2 % (12.0-15.0)
--- NOTE | 2024-03-29 15:40 | ED Physician Documentation ---
History of Present Illness - Stated complaint Stated Complaint: VOMITING - Chief complaint Chief Complaint: Abd Pain - History obtained from History obtained from: Patient, EMS - Additonal information Additional information: This is an elderly gentleman with history of coronary disease and 2 stents who has had stomach upset for about a month with worsening vomiting and abdominal tightness but no abdominal pain. Today he was getting out of the shower and had a syncopal episode and has an ear injury. No other clear injuries. Declines medications for symptomatology on initial arrival. He is noted to be bradycardic. Med list was accessed and he is on metoprolol and that is the only AV node channel ron. UTD tetanus PD PAST MEDICAL HISTORY - Past Medical History Cardiovascular: Congestive heart failure, Hypertension, High cholesterol, Coronary artery disease, [place] Respiratory: Asthma, Pneumonia Neuro: None Endocrine/Autoimmune: None GI: GERD, GI bleed, Ulcerative colitis : Benign prostate hypertrophy, Incontinence, Nocturia HEENT: Chronic hearing loss Psych: None Musculoskeletal: Osteoarthritis, Osteopenia, Chronic back pain Derm: None - Past Surgical History Past Surgical History: Yes General: Cholecystectomy, Appendectomy, Colonoscopy Cardiovascular: Coronary stent, Cardiac catheterization HEENT: Cataracts, Tonsil/Adenoidectomy Derm: Skin cancer surgery - Present Medications Home Medications: Ambulatory Orders Medication Instructions Recorded Confirmed Albuterol Sulfate [Proair Hfa 1 - 2 puffs INH Q4H PRN 10/23/15 02/26/24 Inhaler] Cholecalciferol (Vitamin D3) 125 mcg ORAL DAILY 12/31/18 02/26/24 [Vitamin D3] Magnesium Oxide [Magnesium] 500 mg ORAL QPM 12/31/18 02/26/24 Mv-Min/Folic/K1/Lycopen/Lutein 1 each PO DAILY 07/18/20 02/26/24 [Centrum Silver Men Tablet] amLODIPine [Norvasc] 5 mg PO DAILY 30 Days #30 tablet 08/21/20 02/26/24 Aspirin [Cannon Aspirin] 81 mg PO DAILY 11/16/20 02/26/24 Atorvastatin Calcium [Lipitor] 80 mg PO DAILY 11/16/20 02/26/24 Diclofenac Sodium [Voltaren 1 applic TOP PRN PRN 11/16/20 02/26/24 Arthritis Pain] Furosemide [Lasix] 20 mg PO DAILY 11/16/20 02/26/24 Losartan [Cozaar] 100 mg PO DAILY 11/16/20 02/26/24 Nitroglycerin [Nitrostat] 0.4 mg PO PRN PRN 11/16/20 02/26/24 Spironolactone [Aldactone] 12.5 mg PO DAILY 11/16/20 02/26/24 Metoprolol Succinate [Toprol Xl] 25 mg PO DAILY 02/11/23 02/26/24 Mirabegron [Myrbetriq] 50 mg PO DAILY PM 02/11/23 02/26/24 Alendronate [Fosamax] 70 mg PO Q7D 02/26/24 02/26/24 Azelastine HCl [Astepro Allergy] 205.5 mcg NS BID 02/26/24 02/26/24 Omeprazole 20 mg PO BID 02/26/24 02/26/24 Prevagen 1 tab PO DAILY 02/26/24 02/26/24 - Allergies Allergies/Adverse Reactions: Allergies Allergy/AdvReac Type Severity Reaction Status Date / Time ciprofloxacin Allergy Unknown Verified 04/16/23 19:31 metronidazole [From Flagyl] Allergy Unknown Verified 04/16/23 19:31 Quinolones Allergy Unknown Verified 04/16/23 19:31 simvastatin Allergy Unknown Verified 04/16/23 19:31 - Social History Does the pt smoke?: No Smoking Status: Never smoker Does the pt drink ETOH?: Yes Does the pt have substance abuse?: No - Immunizations Immunizations are current?: Yes - POLST Patient has POLST: No POLST Status: Full Code PD ED PE NORMAL - Vitals Vital signs reviewed: Yes (He is modestly bradycardic in the low 40s) - General General: Alert and oriented X 3, Other (Hard of hearing) - HEENT HEENT: PERRL, EOMI, Other (There is a abrasion/skin tear on the pinna of the right ear) - Neck Neck: Supple, no meningeal sign, No bony TTP - Cardiac Cardiac: RRR, No murmur - Respiratory Respiratory: No respiratory distress, Clear bilaterally - Abdomen Abdomen: Non tender - Extremities Extremities: No edema, No calf tenderness / cord - Neuro Neuro: Alert and oriented X 3 Eye Opening: Spontaneous Motor: Obeys Commands Verbal: Oriented GCS Score: 15 - Psych Psych: Normal mood, Normal affect Results - Vitals Vitals: Vital Signs - 24 hr 03/29/24 03/29/24 03/29/24 15:32 16:00 18:00 Temperature 36.7 C Heart Rate 45 L 46 L 82 Respiratory 12 12 15 Rate Blood Pressure 119/55 L 128/61 133/61 H O2 Saturation 95 96 96 Oxygen O2 Source Room air - Labs Labs: Laboratory Tests 03/29/24 03/29/24 14:40 14:40 WBC 7.0 RBC 3.56 L Hgb 10.5 L Hct 30.7 L MCV 86.2 MCH 29.5 MCHC 34.2 RDW 12.2 Plt Count 238 MPV 9.6 Neut # (Auto) 2.5 Lymph # (Auto) 2.2 Brule # (Auto) 1.3 H Eos # (Auto) 0.9 H Baso # (Auto) 0.1 Absolute Nucleated RBC 0.00 Nucleated RBC % 0.0 Sodium 117 L* Potassium 3.9 Chloride 89 L Carbon Dioxide 19 L Anion Gap 9.0 BUN 22 H Creatinine 1.0 Estimated GFR (MDRD) 71 L Glucose 123 H Calcium 8.9 Total Bilirubin 0.7 AST 47 H ALT 30 Alkaline Phosphatase 102 Troponin I High Sens 9.9 Total Protein 5.9 L Albumin 3.3 Globulin 2.6 Albumin/Globulin Ratio 1.3 Lipase < 10 L - Rads (name of study) 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 CT C-spine showing worsening of an old T1 fracture. Relevant Findings:: Final report received, EMP independent interpretation of test Procedures - Laceration (location) R ear Length in cm: 1 Wound type: Linear Wound preparation: Irrigated copiously NS Skin layer closure: Dermabond Other: Tetanus UTD PD Medical Decision Making - ED course ED course: 89-year-old gentleman with coronary disease had a syncopal episode today. He is modestly bradycardic here but review of the record shows he is somewhat bradycardic always. He is also found to be significantly hyponatremic, his usual sodium is in the mid to high 120s. He was administered a small dose of hypertonic saline and I discussed admission with our hospitalist who notes that we do not have any open ICU beds available which his sodium level would necessitate. 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 We discussed CODE STATUS and he is DNR. Accepted to [facility] by Dr. Ferrera the healthcare risk control consultant at 6:34 PM and they will call back with bed availability. Departure - Departure Disposition: 02 Transfer Acute Care Hosp Clinical Impression: Coronary artery disease, Hyponatremia, Syncope Condition: Stable Forms: PCP List
[2024-03-29 15:54] LABS: TROPONIN I HIGH SENSITIVITY 9.9 ng/L (2.3-19.7)
[2024-03-29 15:59] LABS: ALBUMIN 3.3 g/dL (3.2-5.5); ALBUMIN/GLOBULIN RATIO 1.3 (1.0-2.2); ALKALINE PHOSPHATASE 102 IU/L (42-121); ALT ALANINE AMINOTRANSFERASE 30 IU/L (10-60); AST ASPARTATE AMINOTRANSFERASE 47 IU/L (10-42); BILIRUBIN,TOTAL 0.7 mg/dL (0.2-1.0); BUN - BLOOD UREA NITROGEN 22 mg/dL (6-20); CALCIUM 8.9 mg/dL (8.5-10.3); CARBON DIOXIDE - CO2 19 mmol/L (21-32); CHLORIDE 89 mmol/L (101-111); GFR - MDRD 71 (>89); GLUCOSE 123 mg/dL (74-104); LIPASE < 10 U/L (11-82); POTASSIUM 3.9 mmol/L (3.5-4.5); SODIUM 117 mmol/L (135-145); TOTAL PROTEIN 5.9 g/dL (6.4-8.9)
--- NOTE | 2024-03-29 17:23 | CT Report ---
PROCEDURE: Head WO INDICATIONS: head inj TECHNIQUE: Noncontrast 4.5 mm thick angled axial sections acquired from the foramen magnum to the vertex. For r adiation dose reduction, the following was used: automated exposure control, adjustment of mA and/or kV according to patient size. COMPARISON: 04/16/2023 FINDINGS: Image quality: Excellent. CSF spaces: Basal cisterns are patent. No extra-axial fluid collections. Ventricles are normal in size and shape. Brain: No midline shift. No new intracranial masses or hemorrhage. There is chronic enlargement of the pituitary gland without cord mass effect on the sella, stable since 07/18/2020 Rose-white matter interface is normal. Age-appropriate cortical volume loss and white matter changes. Skull and face: Calvarium and visualized facial bones are intact, without suspicious lesions. Sinuses: Visualized sinuses and mastoids are clear. IMPRESSION: No CT evidence of acute intracranial trauma. No significant soft tissue injury or underlying fracture. Stable appearance of known pituitary macroadenoma. Reviewed by: Courtney Montleongo MD on 03/29/2024 5:22 PM PDT Approved by: Courtney Montelongo MD on 03/29/2024 5:22 PM PDT Station ID: [id number]
--- NOTE | 2024-03-29 17:29 | CT Report ---
PROCEDURE: Cervical Spine WO INDICATIONS: head inj TECHNIQUE: Noncontrast 3 mm thick sections acquired from the skull base to the T4 level. Sagittal and coronal r eformats were then constructed. For radiation dose reduction, the following was used: automated exp osure control, adjustment of mA and/or kV according to patient size. COMPARISON: 04/16/2023 FINDINGS: Image quality: Excellent. Bones: Craniocervical junction is intact. Intact C1 ring with severe degenerative change at the right lateral mass articulation. There is a moderate anterior wedge compression fracture of T1. The verteb ral body demonstrates intrinsic sclerosis. This anterior wedge deformity is progressed isn't 3. There are no acute cervical vertebral body fractures. Multilevel facet ankylosis. Trace anterolist hesis C5-6. The visible rib arcs are intact. Soft tissues: Prevertebral soft tissues are normal in thickness. No paravertebral hematomas. No ap ical pneumothoraces. IMPRESSION: No definite acute cervical vertebral bodies. Progression of the anterior wedge deformity of T1, present previously but may have advanced recently. 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 Reviewed by: Courtney Montelongo MD on 03/29/2024 5:28 PM PDT Approved by: Courtney Montelongo MD on 03/29/2024 5:28 PM PDT Station ID: [id number]
[2024-03-29] MEDS: SODIUM CHLORIDE 3% HYPERTONIC 50 ML IV SCH ×2 (18:05→20:03)
[2024-03-29] MEDS: SODIUM CHLORIDE 0.9% 1,000 ML IV STA (21:47)
[2024-03-29 23:59] VITALS: BP 140/63; O2SAT 96
== END 2024-03-30 00:02 | disposition short-term general hospital (02) ==
LOC: ED 14:40
DX: I25.10 Atherosclerotic heart disease of native coronary artery without angina pectoris (principal); E87.1 Hypo-osmolality and hyponatremia; R55 Syncope and collapse; S01.311A Laceration without foreign body of right ear, initial encounter; X58.XXXA Exposure to other specified factors, initial encounter; Y93.E1 Activity, personal bathing and showering; Z66 Do not resuscitate
CPT/HCPCS: 12011; 36415; 80053; 83690; 84295; 84484; 85025; 93005; 99284

== ENCOUNTER 2024-04-15 08:00 | Outpatient (CLI) | payer MEDICARE ==
[2024-04-15 18:54] LABS: CALCIUM 8.4 mg/dL (8.5-10.3); CREATININE 0.9 mg/dL (0.6-1.3); MAGNESIUM 1.5 mg/dL (1.7-2.3); POTASSIUM 4.2 mmol/L (3.5-4.5)
== END 2024-04-15 23:59 | disposition home or self-care (01) ==
LOC: LAB.N 08:00
PROVIDERS: ATTEND Family Medicine
DX: E87.1 Hypo-osmolality and hyponatremia (principal)
CPT/HCPCS: 36415; 80048; 83735

== ENCOUNTER 2024-04-19 23:30 | Outpatient (CLI) | payer MEDICARE ==
[2024-04-20 01:51] LABS: MAGNESIUM 1.5 mg/dL (1.7-2.3)
[2024-04-20 01:56] LABS: CALCIUM 8.8 mg/dL (8.5-10.3); CREATININE 1.1 mg/dL (0.6-1.3); POTASSIUM 4.1 mmol/L (3.5-4.5)
== END 2024-04-19 23:59 | disposition home or self-care (01) ==
LOC: LAB.R 23:30
PROVIDERS: ATTEND Family Medicine
DX: E87.1 Hypo-osmolality and hyponatremia (principal)
CPT/HCPCS: 36415; 80048; 83735

== ENCOUNTER 2024-04-22 08:00 | Outpatient (CLI) | payer MEDICARE ==
[2024-04-22 19:18] LABS: CALCIUM 8.4 mg/dL (8.5-10.3); POTASSIUM 4.2 mmol/L (3.5-4.5)
== END 2024-04-22 23:59 | disposition home or self-care (01) ==
LOC: LAB.R 08:00
PROVIDERS: ATTEND Family Medicine
DX: E87.1 Hypo-osmolality and hyponatremia (principal)
CPT/HCPCS: 80048

== ENCOUNTER 2024-04-30 10:51 | Outpatient (CLI) | payer MEDICARE ==
[2024-04-30 11:25] LABS: CALCIUM 8.8 mg/dL (8.5-10.3); POTASSIUM 4.1 mmol/L (3.5-4.5)
== END 2024-04-30 10:52 | disposition home or self-care (01) ==
LOC: LAB 10:51
PROVIDERS: ATTEND Registered Nurse
DX: E22.2 Syndrome of inappropriate secretion of antidiuretic hormone (principal)
CPT/HCPCS: 36415; 80048

== ENCOUNTER 2025-03-22 09:57 | Observation (INO) ==
--- OUTSIDE RECORDS SUMMARY | 2025-03-22 10:06 | EXTERNAL MEDICAL SUMMARY RPT | Continuity of Care Document ---
Author Organization [facility] Address [address] [place] [id number] Phone Problems date description facility 2024-12-31 14:20 Hypo-osmolality and hyponatremi a [facility] 2024-12-31 15:06 Hypo-osmolality and hyponatremi a [facility] 2025-01-01 00:04 Hypo-osmolality and hyponatremi a [facility] 2025-01-21 00:02 Hypo-osmolality and hyponatremi a [facility] 2025-01-21 00:02 Unspecified abdominal pain [facility] 2025-01-21 00:02 Unspecified urinary incontinenc e [facility] 2025-01-21 00:02 Frequency of micturition [facility] 2025-01-21 00:02 Dizziness and giddiness [facility] 2025-01-25 12:16 Hypo-osmolality and hyponatremi a [facility] 2025-01-26 00:03 Hypo-osmolality and hyponatremi a [facility] 2025-02-07 14:43 Hypo-osmolality and hyponatremi a [facility] 2025-02-08 00:04 Hypo-osmolality and hyponatremi a [facility] 2025-02-11 16:48 Muscle weakness (generalized) [facility] 2025-02-11 16:48 Urinary tract infection, site n ot specified [facility] 2025-02-11 18:13 Muscle weakness (generalized) [facility] 2025-02-11 18:13 Urinary tract infection, site n ot specified [facility] 2025-02-14 13:39 Muscle weakness (generalized) [facility] 2025-02-14 13:39 Urinary tract infection, site n ot specified [facility] 2025-02-14 13:39 Weakness [facility] 2025-02-14 13:39 Other fatigue [facility] 2025-02-23 09:53 Weakness [facility] 2025-02-28 14:40 Hypo-osmolality and hyponatremi a [facility] 2025-03-01 00:03 Hypo-osmolality and hyponatremi a [facility] 2025-03-02 14:30 Hypo-osmolality and hyponatremi a [facility] 2025-03-02 14:30 Heart failure, unspecified [facility] 2025-03-02 14:30 Personal history of urinary (tr act) infections [facility] 2025-03-02 16:47 Heart failure, unspecified [facility] 2025-03-03 00:02 Hypo-osmolality and hyponatremi a [facility] 2025-03-03 00:02 Heart failure, unspecified [facility] 2025-03-03 00:02 Personal history of urinary (tr act) infections [facility] 2025-03-03 12:41 Hypo-osmolality and hyponatremi a [facility] 2025-03-03 12:41 Heart failure, unspecified [facility] 2025-03-03 12:41 Muscle weakness (generalized) [facility] 2025-03-03 12:41 Pain in left arm [facility] 2025-03-03 12:41 Urinary tract infection, site n ot specified [facility] 2025-03-03 12:41 Unspecified abdominal pain [facility] 2025-03-03 12:41 Nausea with vomiting, unspecifi ed [facility] 2025-03-03 12:41 Diarrhea, unspecified [facility] 2025-03-03 12:41 Weakness [facility] 2025-03-03 12:41 Other fatigue [facility] 2025-03-03 12:41 Syncope and collapse [facility] 2025-03-03 12:41 Unspecified injury of head, ini tial encounter [facility] 2025-03-03 12:41 Unspecified injury of ear, init ial encounter [facility] 2025-03-03 12:41 Personal history of urinary (tr act) infections [facility] 2025-03-14 14:04 Hypo-osmolality and hyponatremi a [facility] 2025-03-15 00:04 Hypo-osmolality and hyponatremi a [facility] 2025-03-21 11:21 Hypo-osmolality and hyponatremi a [facility] 2025-03-21 13:01 Hypo-osmolality and hyponatremi a [facility] 2025-03-22 00:04 Hypo-osmolality and hyponatremi a [facility] Results/Labs test date facility value unit notes Result panel 1 SODIUM 2024-12-31 14:25 [facility] 132 mmol/l (missing) Result panel 2 SODIUM 2025-01-25 12:24 [facility] 132 mmol/l (missing) Result panel 3 SODIUM 2025-02-07 15:01 [facility] 131 mmol/l (missing) Result panel 4 NUCLEATED RED BLOOD CELLS AUTO 2025-02-11 14:22 [facility] 0.0 /100wbc (missing) NRBC ABSOLUTE COUNT (AUTO) 2025-02-11 14:22 [facility] 0.00 x10 3/ul (missing) BASOPHILS # (AUTO) 2025-02-11 14:22 [facility] 0.1 10 3/ul (missing) EOSINOPHILS # (AUTO) 2025-02-11 14:22 [facility] 0.7 10 3/ul (missing) BILIRUBIN,TOTAL 2025-02-11 14:22 [facility] 0.8 mg /dl As of February 2023 testing method has changed, this may include reference ranges. ALBUMIN/GLOBULIN RATIO 2025-02-11 14:22 [facility] 1.0 (missing) (missing) MONOCYTES # (AUTO) 2025-02-11 14:22 [facility] 1.2 10 3/ul (missing) CREATININE 2025-02-11 14:22 [facility] 1.4 mg/dl As of February 2023 testing method has changed, this may include reference ranges. LYMPHOCYTES # (AUTO) 2025-02-11 14: [facility] 1.6 10 3/ul (missing) CHLORIDE 2025-02-11 14:22 [facility] 101 mmol/l As of February 2023 testing method has changed, this may include reference ranges. ALKALINE PHOSPHATASE 2025-02-11 14:22 [facility] 116 iu/l As of February 2023 testing method has changed, this may include reference ranges. RED CELL DISTRIBUTION WIDTH 2025-02-11 14:22 [facility] 13.2 % (missing) HGB - HEMOGLOBIN 2025-02-11 14:22 [facility] 13.4 g /dl (missing) SODIUM 2025-02-11 14:22 [facility] 132 mmol/l (missing) PLT - PLATELET COUNT 2025-02-11 14:22 [facility] 225 10 3/ul (missing) LIPASE 2025-02-11 14:22 [facility] 23 u/l As of February 2023 testing method has changed, this may include reference ranges. CARBON DIOXIDE - CO2 2025-02-11 14:22 [facility] 24 mmol/l As of February 2023 testing method has changed, this may include reference ranges. MEAN CORPUSCULAR HEMOGLOBIN 2025-02-11 14:22 [facility] 29.8 pg (missing) GLOBULIN 2025-02-11 14:22 [facility] 3.4 g/dl (missing) ALBUMIN 2025-02-11 14:22 [facility] 3.4 g/dl As of February 2023 testing method has changed, this may include reference ranges. MEAN CORPUSCULAR HGB CONC 2025-02-11 14:22 [facility] 32.8 g/dl (missing) ALT ALANINE AMINOTRANSFERASE 2025-02-11 14:22 [facility] 36 iu/l As of February 2023 testing method has changed, this may include reference ranges. RED BLOOD COUNT 2025-02-11 14:22 [facility] 4.50 10 6/ul (missing) POTASSIUM 2025-02-11 14:22 [facility] 4.8 mmol/l As of February 2023 testing method has changed, this may include reference ranges. NEUTROPHILS # (AUTO) 2025-02-11 14:22 [facility] 4.9 10 3/ul (missing) BUN - BLOOD UREA NITROGEN 2025-02-11 14:22 [facility] 40 mg/dl As of Feb testing method has changed, this may include reference ranges. HCT - HEMATOCRIT 2025-02-11 14:22 [facility] 40.9 % (missing) GFR - MDRD 2025-02-11 14:22 [facility] 48 (emma mcintyre) Social History date description facility
[2025-03-22 11:35] LABS: HCT - HEMATOCRIT 40.3 % (42.0-52.0); HGB - HEMOGLOBIN 13.2 g/dL (14.0-18.0); MEAN PLATELET VOLUME 9.5 fL (7.4-11.4); NRBC ABSOLUTE COUNT (AUTO) 0.00 x10^3/uL; NUCLEATED RED BLOOD CELLS AUTO 0.0 /100WBC; PLT - PLATELET COUNT 211 10^3/uL (130-450); RED CELL DISTRIBUTION WIDTH 13.2 % (12.0-15.0)
[2025-03-22 11:50] LABS: ALT ALANINE AMINOTRANSFERASE 40.0 IU/L (10-60); AST ASPARTATE AMINOTRANSFERASE 60.0 IU/L (10-42); BUN - BLOOD UREA NITROGEN 56.0 mg/dL (6-20); CARBON DIOXIDE - CO2 28.0 mmol/L (21-32); CREATININE 1.3 mg/dL (0.6-1.3); GFR - MDRD 52.0 (>89)
[2025-03-22 11:55] LABS: TROPONIN I HIGH SENSITIVITY 13.0 ng/L (2.3-19.7)
--- NOTE | 2025-03-22 12:21 | ED Physician Documentation ---
History of Present Illness Stated complaint Stated Complaint: GLF/NEAR SYNCOPE Chief complaint Chief Complaint: General History obtained from History obtained from: Patient History of Present Illness Timing: Prior to arrival Additonal information Additional information: Patient is a 89-year-old male with a history of hypertension and hyponatremia that he gets checked regularly presents to the emergency department with lightheadedness episode presyncopal symptoms. Patient notes he was in the shower when he felt very lightheaded dizzy he was able to lowered himself to the ground and get out of the shower. His did not notice him on the ground for about 5 to 10 minutes. When she saw he was on the ground she called the ambulance. Patient denies any injuries from the fall and was feeling very lightheaded when EMS got him up to stand but feels back to his baseline at this time he denies any chest pain or shortness of breath associate with his symptoms he did not eat or drink prior to taking a shower this morning. He had his sodium checked yesterday and he was at 137 and is on a fluid restriction for this in the outpatient setting. Patient denies any lower leg swelling shortness of breath dizziness at this time. Meds/Allgy Home Medications Ambulatory Orders Medication Instructions Recorded Confirmed albuterol sulfate 90 mcg/actuation 1 - 2 puff inhalati on Q4H PRN 10/23/15 03/02/25 aerosol inhaler (ProAir HFA) Asthma cholecalciferol (vitamin D3) 25 125 mcg ORAL DAILY 03/02/25 mcg (1,000 unit) capsule aspirin 81 mg chewable tablet (St 81 mg PO DAILY 11/1603/02/25 Sergio Aspirin) atorvastatin 80 mg tablet (Lipitor) 80 mg PO DAILY 03/02/25 diclofenac sodium 1 % topical gel 1 applic topical PRN PRN Pain 11/16/20 03/02/25 (Voltaren Arthritis Pain) metoprolol succinate 25 mg 25 mg PO DAILY Congestive H eart 02/11/23 03/02/25 tablet,extended release 24 hr Failure azelastine 205.5 mcg (0.15 %) 205.5 mcg NS BID 02/25/ 4 03/02/25 nasal spray (Astepro Allergy) mometasone-formoterol HFA 200 1 puff inhalation BID 03/02/25 mcg-5 mcg/actuation aerosol inhaler (Dulera) ikonwsip-ouw-dmien acid 0.4 1 tab PO QDAY 07/26/24 mg-lycopene 300 mcg-lutein 250 mcg tablet (Centrum Silver) furosemide 20 mg tablet 20 mg PO QDAY PRN swelling o r gain 01/20/25 03/02/25 5 lbs losartan 25 mg tablet 25 mg PO QDAY 01/20/2503/02 magnesium citrate 100 mg tablet 100 mg PO QDAY 5 03/02/25 mirabegron 50 mg tablet,extended 50 mg PO ONCE 5 03/02/25 release 24 hr (Myrbetriq) Allergies Allergies Allergy/AdvReac Type Severity Reaction Status Date / Time ciprofloxacin Allergy Hives Verified 03/22/25 10:02 metronidazole (From Flagyl) Allergy Hives Verified 03/22/25 10:02 PENDING SALE TO [facility] Active Problems All Active Problems (Updated 03/02/25 @ 14:22 by Geri Manuel MD) History of urinary tract infection (Acute) Generalized muscle weakness (Acute) UTI (urinary tract infection) (Acute) Seasonal allergies (Acute) Urinary frequency (Acute) Urinary incontinence (Acute) Chronic hyponatremia (Acute) ISTAP type 3 skin tear of right forearm (Acute) Non-pressure chronic ulcer of skin of other sites with fat layer exposed (Acute) Abrasion of right forearm, subsequent encounter (Acute) Phlegm in throat (Acute) Constipation by delayed colonic transit (Acute) Hyponatremia (Acute) Tear of skin of multiple sites of lower extremity (Acute) Skin tear of forearm without complication (Acute) HTN (hypertension) (Acute) Medical History Medical History (Updated 03/02/25 @ 14:22 by Geri Manuel MD) Chronic HFrEF (heart failure with reduced ejection fraction) Coronary artery disease Acute kidney injury UTI (urinary tract infection) Hx of syncope Chronic pain COPD without exacerbation Pituitary tumor Uncontrolled hypertension Elevated cholesterol Congestive heart failure Back pain Osteoarthritis, hip, bilateral Chronic back pain Dehydration Asthma Asthma, 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) Benign essential hypertension (01/07/17) 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) GERD (gastroesophageal reflux disease) (11/27/20) Hyperlipidemia (05/03/09) Insomnia (01/17/21) Pituitary adenoma (07/18/20) Heart failure with reduced ejection fraction Sinus bradycardia Spondylolisthesis (07/06/20) Pulmonary edema (08/28/20) Prostate cancer screening (12/11/20) Periodic limb movement disorder (01/07/17) 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 Social History Social History Smoking Status: Current some day smoker Do you dip or chew tobacco?: No Do you vape?: No Patient requests smoking cessation consult: No Initiate information on smoking cessation: No Living arrangement: At home Living Condition: With spouse/s.o. Do you feel safe in your home environment?: Yes History of physical, verbal, emotional, or financial abuse?: No Frequency: Occasional POLST Patient has POLST: No Exam Exam Vital Signs: Vital Signs x48h Temp Pulse Pulse Pulse Pulse Resp BP 03/22/25 12:39 67 74 59 L 03/22/25 12:15 57 L 16 178/79 H 03/22/25 11:29 55 L 19 179/73 H 03/22/25 09:58 36.5 C 58 L 19 164/66 H BP BP BP Pulse Ox 03/22/25 12:39 144/80 H 110/65 163/75 H 03/22/25 12:15 98 03/22/25 11:29 98 03/22/25 09:58 97 Constitutional normal general appearance HENMT normocephalic Eyes PERRL, EOMs intact bilaterally and conjunctivae normal Neck/C-Spine visual inspection normal Lymph no lymphadenopathy noted Chest inspection of chest normal Respiratory breath sounds equal bilaterally, normal respiratory effort and clear to auscultation bilaterally Cardiovascular regular rhythm noted and no gallop bradycardia Extremities normal to inspection Moving all extremities without difficulty Skin skin color normal, no rash and no lesions Results Vitals Vitals: Vital Signs - 24 hr 03/22/25 09:58 03/22/25 11:29 03/22/25 12:15 Temperature 36.5 C Temperature Source Oral Pulse Rate 58 L 55 L 57 L Pulse Rate [Sitting] Pulse Rate [Standing] Pulse Rate [Supine] Respiratory Rate 19 19 16 Blood Pressure 164/66 H 179/73 H 178/79 H Blood Pressure [Sitting] Blood Pressure [Standing] Blood Pressure [Supine] O2 Saturation 97 98 98 O2 Source Room air Room air Room air Pain Intensity 0 0 0 03/22/25 12:39 Temperature Temperature Source Pulse Rate Pulse Rate [Sitting] 67 Pulse Rate [Standing] 74 Pulse Rate [Supine] 59 L Respiratory Rate Blood Pressure Blood Pressure [Sitting] 144/80 H Blood Pressure [Standing] 110/65 Blood Pressure [Supine] 163/75 H O2 Saturation O2 Source Pain Intensity Oxygen O2 Source Room air EKG (time done) 1126: EKG releavant findings:: EKG personally interpreted by author of this note. Relevant findings are: bradycardia Rate: Rate (enter#) (47 bpm) Rhythm: Sinus bradycardia Broadbent: Normal Intervals: Prolonged MD and 1st degree AVB QRS: QRS normal Compare to prior EKG: Unchanged from prior EKG Computer interpretation: Agree with computer Labs Labs: Laboratory Tests 03/22/25 03/22/25 11:23 11:30 WBC 6.4 RBC 4.42 L Hgb 13.2 L Hct 40.3 L MCV 91.2 MCH 29.9 MCHC 32.8 RDW 13.2 Plt Count 211 MPV 9.5 Neut # (Auto) 3.4 Lymph # (Auto) 1.5 [place] # (Auto) 0.9 Eos # (Auto) 0.6 Baso # (Auto) 0.1 Absolute Nucleated RBC 0.00 Nucleated RBC % 0.0 Sodium 135 Potassium 4.4 Chloride 102 Carbon Dioxide 28 Anion Gap 5.0 L BUN 56 H Creatinine 1.3 Estimated GFR (MDRD) 52 L Glucose 106 H Calcium 10.1 Magnesium 2.3 Total Bilirubin 0.6 AST 60 H ALT 40 Alkaline Phosphatase 89 Troponin I High Sens 13.0 Total Protein 7.1 Albumin 3.8 Globulin 3.3 Albumin/Globulin Ratio 1.2 Nasal Adenovirus (PCR) NOT DETECTED Nasal B. parapertussis DNA (PCR) NOT DETECTED Nasal Coronavir 229E PCR NOT DETECTED Nasal Coronavir HKU1 PCR NOT DETECTED Nasal Coronavir NL63 PCR NOT DETECTED Nasal Coronavir OC43 PCR NOT DETECTED Nasal Enterovir/Rhinovir PCR NOT DETECTED Nasal Influenza B PCR NOT DETECTED Nasal Influenza A PCR NOT DETECTED Nasal Parainfluen 1 PCR NOT DETECTED Nasal Parainfluen 2 PCR NOT DETECTED Nasal Parainfluen 3 PCR NOT DETECTED Nasal Parainfluen 4 PCR NOT DETECTED Nasal RSV (PCR) NOT DETECTED Nasal B.pertussis DNA PCR NOT DETECTED Nasal C.pneumoniae (PCR) NOT DETECTED [place] Human Metapneumo PCR NOT DETECTED Nasal M.pneumoniae (PCR) NOT DETECTED Nasal SARS-CoV-2 (PCR) NOT DETECTED PD Medical Decision Making ED course Complexity details: reviewed old records and reviewed results ED course: Patient is an 89-year-old male presenting to the emergency department with lightheadedness episode while he was in the shower and near syncope he felt very dizzy and lightheaded he is had a history of coronary artery disease with 2 stents placed history of hyponatremia that is chronic monitor closely in the outpatient setting and history of hypertension. He takes metoprolol and on arrival EKG shows heart rate of 47 he appears bradycardic but this seems similar to his previous EKG on 10/2024. Labs here in the emergency department showed no significant leukocytosis his sodium level is stable at 135 much improved from his baseline and GFR is well within normal range for patient slight elevation in AST that appears to be trending up over the last few months but no acute elevation in ALT or bilirubin magnesium level within normal range troponin is negative and orthostatics show Positive with a drop in blood pressure from 160- 110 on standing. Patient was started on normal saline but given significant orthostatic hypotension and concerns for previous hyponatremia patient will be admitted for fluid rehydration to observation status Dr. Phillips accepts patient inpatient and will come down to evaluate patient here in the ED.Patient agreeable with admission at this time. Discharge Plan Discharge Prescriptions: No Action albuterol sulfate [ProAir HFA] 8.5 GM HFA aerosol inhaler 1 - 2 puff inhalation Q4H PRN (Reason: Asthma) cholecalciferol (vitamin D3) 1,000 UNIT capsule 125 mcg ORAL DAILY atorvastatin [Lipitor] 80 MG tablet 80 mg PO DAILY aspirin [St Sergio Aspirin] 81 MG tablet,chewable 81 mg PO DAILY diclofenac sodium [Voltaren Arthritis Pain] 20 GM gel 1 applic topical PRN PRN (Reason: Pain) Rx Instructions: As needed for L foot arthritis pain metoprolol succinate 25 MG tablet extended release 24 hr 25 mg PO DAILY azelastine [Astepro Allergy] 205.5 MCG/0.137 ML spray,non-aerosol 205.5 mcg NS BID mirabegron [Myrbetriq] 50 mg tablet extended release 24 hr 50 mg PO ONCE Dulera 200-5 mcg/actuation HFA aerosol inhaler 1 puff inhalation BID Rx Instructions: Take 1 puff by mouth twice a day Centrum Silver 0.4 mg-300 mcg- 250 mcg tablet 1 tab PO QDAY furosemide 20 mg tablet 20 mg PO QDAY PRN (Reason: swelling or gain 5 lbs) magnesium citrate 100 mg tablet 100 mg PO QDAY losartan 25 mg tablet 25 mg PO QDAY Print Language: Frisian Stand Alone Forms: PCP List
[2025-03-22 12:26] LABS: CORONAVIRUS 229E-RESP PCR NOT DETECTED
[2025-03-22 12:27] LABS: B. PARAPERTUSSIS- RESP PCR PAN NOT DETECTED; B. PERTUSSIS- RESP PCR PANEL NOT DETECTED; C. PNEUMONIAE- RESP PCR PANEL NOT DETECTED; CORONAVIRUS HKU1-RESP PCR NOT DETECTED; CORONAVIRUS NL63-RESP PCR NOT DETECTED; CORONAVIRUS OC43-RESP PCR NOT DETECTED; HUMAN METAPNEUMOVIRUS NOT DETECTED; INFLUENZA A- RESP PCR PANEL NOT DETECTED; INFLUENZA B - RESP PCR PANEL NOT DETECTED; M. PNEUMONIAE- RESP PCR PANEL NOT DETECTED; PARAINFLUENZA VIRUS 1 NOT DETECTED; PARAINFLUENZA VIRUS 2 NOT DETECTED; PARAINFLUENZA VIRUS 4 NOT DETECTED; RHINOVIRUS/ENTEROVIRUS NOT DETECTED; RSV- RESP PCR PANEL NOT DETECTED; SARS-CoV-2 -RESP PCR PANEL NOT DETECTED
[2025-03-22] MEDS: SODIUM CHLORIDE 0.9% 1,000 ML IV STA (13:26)
[2025-03-22 14:12] LABS: GLUCOSE, URINE (UA) NEGATIVE (NEGATIVE); KETONES,URINE (UA) NEGATIVE (NEGATIVE); OCCULT BLOOD,URINE TRACE (NEGATIVE)
[2025-03-22 14:22] LABS: SQUAMOUS EPITHELIAL CELL,UR RARE Squamous (<= Few)
[2025-03-22] MEDS ORDERED: oxyCODONE 5 MG TABLET PO PRN (15:03)
[2025-03-22] MEDS ORDERED: ACETAMINOPHEN 325 MG TABLET PO PRN (15:03)
[2025-03-22] MEDS ORDERED: SODIUM CHLORIDE FLUSH 0.9% 10 ML SYRINGE IVP PRN (15:03)
[2025-03-22] MEDS: SODIUM CHLORIDE 0.9% 1,000 ML IV SCH (15:44)
[2025-03-22] MEDS: SODIUM CHLORIDE FLUSH 0.9% 10 ML SYRINGE IVP SCH (15:45)
--- NOTE | 2025-03-22 16:39 | PHARMACY PROGRESS NOTE ---
Best Possible Medication History Admit Date and Time: 03/22/25 1415 Home Medications Medication Instructions Recorded Confirmed Type albuterol sulfate 90 mcg/actuation 1 - 2 puff inhalati on Q4H PRN 10/23/15 03/22/25 History aerosol inhaler (ProAir HFA) Asthma cholecalciferol (vitamin D3) 25 125 mcg ORAL DAILY 03/22/25 History mcg (1,000 unit) capsule aspirin 81 mg chewable tablet (St 81 mg PO DAILY 11/1603/22/25 History Sergio Aspirin) atorvastatin 80 mg tablet (Lipitor) 80 mg PO DAILY 03/22/25 History diclofenac sodium 1 % topical gel 1 applic topical PRN PRN Pain 11/16/20 03/22/25 History (Voltaren Arthritis Pain) metoprolol succinate 25 mg 25 mg PO DAILY Congestive H eart 02/11/23 03/22/25 History tablet,extended release 24 hr Failure azelastine 205.5 mcg (0.15 %) 205.5 mcg NS BID 02/25/ 4 03/22/25 History nasal spray (Astepro Allergy) mometasone-formoterol HFA 200 1 puff inhalation BID 03/22/25 History mcg-5 mcg/actuation aerosol inhaler (Dulera) wlzwofxt-ajy-lzwpl acid 0.4 1 tab PO DAILY 07/26/24 History mg-lycopene 300 mcg-lutein 250 mcg tablet (Centrum Silver) furosemide 20 mg tablet 20 mg PO DAILY PRN swelling or 01/20/25 03/22/25 History gain 5 lbs losartan 25 mg tablet 25 mg PO DAILY 01/20/2503/04 History magnesium citrate 100 mg tablet 100 mg PO DAILY 03/22/25 History mirabegron 50 mg tablet,extended 50 mg PO DAILY 03/22/25 History release 24 hr (Myrbetriq) Processed by: Pharmacy Medications reviewed in ED?: Yes Medication History completed: Yes Patient Interview: Completed Secondary Source(s): Written medication list and Insurance records [facility] Statement: of patient stated that he recently started Urea powder to help with hyponatremia but cannot recall dose and it is not built into the MT to add to list. As the person ultimately responsible for medication therapy, providers are able to order a medication from an existing home medication list in [facility] via the "Reconcile Routine" prior to Confirmation of that medication by business support professional. Such practice is discouraged except when the physician, in their clinical judgment, deems that a medical need exists for a medication without regard to previous use.
--- NOTE | 2025-03-22 16:52 | ECHO Report ---
Version: 1 Study ID: [id number] Adult Echocardiogram Report Name: OUMAR LAINEZ Study Date: 03/22/2025, 3: 47 PM BP: 147 / 83 mmHg Patient Location: [facility] [place]13^01 HR: 56 bpm : 1935 (MM/DD/YYYY) Gender: Male Height: 72 in Age: 89 Years Weight: 181.44 lb BSA: 2.04 m² Reason For Study: tia History: TIA, recent fall Interpretation Summary The right ventricle is normal in size and function. There is mild valvular aortic stenosis. There is mild mitral regurgitation. The aorta at the sinus of Valsalva measures 4.3cm. The aorta at the level of the sinuses of Valsalva is mildly dilated. Left Ventricle: The left ventricle is grossly normal size. There is mild concentric increase in the wall thickness of the left ventricle. Global left ventricular function is lower limits of normal. The visual left ventricular ejection fraction is estimated at 50 to 55%. Abnormal (paradoxical) septal motion consistent with interventricular conduction delay. Diastolic function could not be accurately assessed due to irregular rhythm. Right Ventricle: The right ventricle is normal in size and function. Aortic Valve: The aortic valve is moderately calcified. Aortic valve structure is not well visualized. The aortic valve maximum pressure gradient is 26 mmHg. The aortic valve mean pressure gradient is 16 mmHg. The aortic valve peak velocity is 260 cm/sec. The left ventricular outflow tract to aortic valve velocity ratio is 0.25. The calculated aortic valve area is 1.1 cm2. Aortic valve velocities may be underestimated due to suboptimal acoustic windows. There is mild valvular aortic stenosis. There is an eccentric jet of aortic insufficiency directed toward the anterior mitral leaflet. Mild aortic regurgitation is present. Mitral Valve: The mitral valve leaflets are mildly thickened. Motion of both mitral valve leaflets are decreased. No evidence of mitral stenosis is seen. There is mild mitral regurgitation. Tricuspid Valve: The tricuspid valve is normal in structure and function. Mild tricuspid regurgitation present. Pulmonic Valve: The pulmonic valve is not well seen. Left Atrium: The left atrium is not well visualized. Right Atrium: Right atrium not well visualized. The inferior vena cava is normal in diameter (<2.1cm) and there is complete collapse with inspiration (estimated right atrial pressure 0-5mmHg). Atrial Septum: Lipomatous hypertrophy of the interatrial septum is present. Aorta: The diameter of the ascending aorta is 3.6 cm. The aorta at the level of the sinuses of Valsalva is mildly dilated. The aorta at the sinus of Valsalva measures 4.3cm. Pulmonary Artery: The pulmonary artery systolic pressure, calculated from a peak tricuspid regurgitant velocity in conjunction with an estimated right atrial pressure, is 20 - 25mmHg. Pericardium/Pleural Space: There is no pericardial effusion. Atria LA dimension: 5.1 cm LAV(MOD-sp4): 51.0 ml LAV(MOD-sp2): 45.9 ml Aortic Valve LVOT diam: 2.35 cm LV V1 mean P.99 mmHg LV V1 mean: 47.9 cm/sec LV V1 VTI: 17.0 cm Ao V2 VTI: 64.7 cm Ao mean P.8 mmHg Ao V2 mean: 190.5 cm/sec LV V1 max: 61.6 cm/sec LV V1 max P.52 mmHg Ao max P.6 mmHg Ao V2 max: 258.0 cm/sec Tricuspid Valve TR max P.4 mmHg TR max edgardo: 225.6 cm/sec TV max P.4 mmHg Aorta Ao root diam: 4.3 cm MMode/2D Measurements & Calculations Ao root diam: 4.3 cm BMI: 24.6 kilograms/m² BSA([facility]): 2.05 m² EF Mod BP: 46.6 % LA A4C-A/L: 18.7 cm² LA dimension: 5.1 cm LA ESV-A/L: 52.1 ml LA Vol Index: 35.8 ml/m² LAV(MOD-sp2): 45.9 ml LAV(MOD-sp4): 51.0 ml LVOT diam: 2.35 cm Doppler Measurements & Calculations Ao max P.6 mmHg Ao mean P.8 mmHg Ao V2 max: 258.0 cm/sec Ao V2 mean: 190.5 cm/sec Ao V2 VTI: 64.7 cm LV V1 max: 61.6 cm/sec LV V1 max P.52 mmHg LV V1 mean: 47.9 cm/sec LV V1 mean P.99 mmHg LV V1 VTI: 17.0 cm RAP systole: 5.0 mmHg TR max P.4 mmHg TR max edgardo: 225.6 cm/sec TV max P.4 mmHg Other Measurements & Calculations Ao root area: 14.6 cm² EMMANUEL(I,D): 1.14 cm² EMMANUEL(V,D): 1.04 cm² LVOT area: 4.3 cm² RVSP(TR): 25.4 mmHg SV(LVOT): 73.7 ml Procedure Notes: A complete two-dimensional transthoracic echocardiogram was performed (2D, M- mode, Doppler and color flow Doppler). Indication: Evaluate cardiac and valve function. This study was focused secondary to limited cardiac windows. The patient was comfortable and cooperative throughout the procedure. The underlying rhythm was bradycardia. AV block present. CPT Codes: 84686/[id number]: Transthoracic Echo with Spectral and Color Doppler. MD Ludmila Persaud 03/22/2025, 4: 51 PM Ordering Physician: Mirta Nava Referring Physician: Maggy Bailey Performed By: Jaycee Emerson RDCS
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
[2025-03-23 04:48] LABS: HCT - HEMATOCRIT 36.5 % (42.0-52.0); HGB - HEMOGLOBIN 11.8 g/dL (14.0-18.0); MEAN PLATELET VOLUME 10.0 fL (7.4-11.4); NRBC ABSOLUTE COUNT (AUTO) 0.00 x10^3/uL; NUCLEATED RED BLOOD CELLS AUTO 0.0 /100WBC; PLT - PLATELET COUNT 177 10^3/uL (130-450); RED CELL DISTRIBUTION WIDTH 13.1 % (12.0-15.0)
[2025-03-23 05:03] LABS: BUN - BLOOD UREA NITROGEN 43.0 mg/dL (6-20); CARBON DIOXIDE - CO2 22.0 mmol/L (21-32); CREATININE 1.1 mg/dL (0.6-1.3); GFR - MDRD 63.0 (>89)
[2025-03-23] MEDS: ATORVASTATIN 40 MG TABLET PO SCH (08:36)
[2025-03-23] MEDS: METOPROLOL SUCCINATE 25 MG TABLET PO SCH (08:36)
[2025-03-23] MEDS: ASPIRIN CHEW 81 MG TABLET PO SCH (08:36)
[2025-03-23] MEDS: MAGNESIUM OXIDE 400 MG TABLET PO SCH (08:37)
[2025-03-23] MEDS: SOLIFENACIN SUCCINATE 5 MG TABLET PO SCH (08:37)
[2025-03-23] MEDS ORDERED: MIRABEGRON 50 MG PO SCH (09:00)
[2025-03-23] MEDS: BARIUM SULFATE 355 ML BOTTLE PO ONE (10:20)
[2025-03-23] MEDS: BARIUM SULFATE 700 MG TABLET PO ONE (11:25)
[2025-03-23] MEDS: BARIUM SULFATE 135 ML BOTTLE PO ONE (11:26)
--- NOTE | 2025-03-23 12:27 | XRAY Report ---
PROCEDURE: FL UGI W/O Air INDICATIONS: regurgitation COMPARISON: None. Correlation made to CT abdomen 11/26/2024. FINDINGS: Limited exam secondary to patient condition. KUB: Not obtained. Esophagus: Limited views of the esophagus demonstrates a smooth mucosal surface. The proximal portion is mildly patulous. The distal portion demonstrates moderate, slightly disorganized tertiary contractions and initially, severe spasm in the distal esophagus. This spasm and distal discoordination cause intraesophageal stasis, particularly pronounced in the semirecumbent and recumbent position. Maximal distention of the distal esophagus is about 9 mm in diameter. There is severe intraesophageal reflux and constantino, silent aspiration. Aspiration was not directly witnessed, however prominent air bronchograms are evident during the exam. The standardized calibrated barium tablet did not pass through the distal esophagus despite several attempts with water and thin barium. Stomach: The stomach is not distended with air. There is a small sliding hiatal hernia in the recumbent position. The limited views of the stomach and proximal small bowel are normal without suspicious mass effect or gastric outlet obstruction. There is minimal elicited gastroesophageal reflux. IMPRESSION: Limited exam secondary to patient condition. Smooth stricture at the distal esophagus measures about 9 mm. Unable to pass a calibrated barium tablet at 12 mm. Recommend upper endoscopy. Tertiary contractions and spasm of the mid to distal esophagus resulting in intraesophageal reflux and subsequent silent aspiration. Recommend further evaluation with speech pathology to fully assess swallowing and airway protection. Small sliding hiatal hernia. Otherwise grossly normal stomach and proximal small bowel. Reviewed by: Courtney Montelongo MD on 03/23/2025 12:25 PM PDT Approved by: Courtney Montelongo MD on 03/23/2025 12:25 PM PDT Station ID: [id number]
--- NOTE | 2025-03-23 13:03 | Discharge Summary ---
Discharge Summary Admit Date: 03/22/25 Discharge Date: 03/23/25 Discharging Provider: Mirta Nava MD Primary Care Provider: Pamela Manuel MD Code Status: Do Not Attempt Resuscitation DIAGNOSES Discharge Diagnoses with Status of Each Condition: 1. Near syncope 2. Orthostatic hypotension 3. Chronic heart failure with reduced ejection fraction 4. Hyponatremia 5. Regurgitation of food 6. Esophageal stricture 7. DO NOT RESUSCITATE HPI History of Present Illness: This sammy gentleman is still active and gardening. He is followed by his primary care provider Pamela Manuel MD for hyponatremia, overactive bladder with a history of UTIs, and congestive heart failure. The hyponatremia was recently addressed on January 20 and March 02. Both of those notes states that he is going to be referred to nephrology since his sodium has ranged from 117-132. His sodium on March 14 was 136. Yesterday sodium was 137. His heart failure is not particularly symptomatic with his last visit. He is followed by [facility] cardiology, Herminio Panchal. He was last seen by Dr. Panchal May 2024 (he use to be seen by Ludmila Persaud 05/04/24 and he transferred care 05/28/24). He was hospitalized at [facility] March 2024 and discharged April 2024 for dizziness, syncope and chronic hyponatremia. He suffered a syncopal event and near injury getting out of the shower. He was bradycardic. Sinus. 3% saline given for sodium of 117. 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 Endocrinology was called and he had a Cortrosyn stimulation and TSH that were normal. This the pituitary adenoma was not felt to be responsible for the hyponatremia. Urine osmolality was in the 400s on April 01. He did have orthostatic hypotension and 2 episodes of syncope in the hospital. Treatment was fluid restriction, and half a dose of tolvaptan 10. Echocardiogram had normal LV size and wall thickness with a normal LVEF of 60%. Normal RV size and systolic function. Mild aortic valve stenosis with peak low of 2.85 m/s. Mean gradient of 19 mmHg. Peak gradient of 32 mmHg. Normal-sized atria. CT had mild bilateral pleural effusions, scattered bronchiectasis, groundglass opacities in the left upper inferior right upper and right middle lobes with an acute right anterolateral fourth and rib fractures and chronic stable vertebral fractures. 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 If orthostatic hypotension persisted midodrine was recommended. When he was discharged he was off metoprolol, Lasix, losartan, spironolactone and amlodipine. It was recommended that he could resume some of his current medications if blood pressure allowed. He was discharged to a retirement facility. Stayed there for 2 weeks and was able to get strong enough to go home. His medication list today has him on Lasix 20 mg daily as needed for leg swelling or if he gains 5 pounds.He was seen February 11 in the ER because of generalized weakness. He could not get out of bed. He was treated as a UTI. About 3 weeks ago, he gained that 5 pounds and has been taking daily Lasix. Losartan 25 mg daily Was reduced from 50 mg a day by Dr[address] Panchal. Metoprolol 25 mg daily. He also takes his mirabegron 50 mg for his prostate. He is not on amlodipine or spironolactone. Today he presented to the emergency room because of near syncope if not syncope. He was in the shower and started getting dizzy. Uses a shower chair and was sitting in the shower chair. He was able to finish taking his shower and when he was trying to get to his walker he tripped and fell. The bathroom door was shut. And there is a shower or bathroom fan going. So his did not hear him fall. He may have been on the ground for 20 minutes. He had managed to crawl to the side of the tub and was leaning against the tub. No hitting his head. He hit his arm again. He has had a terrible laceration of his right forearm in the past and it took weeks to heal. When she saw him on the ground she called EMS. When EMS tried to get him back up again, he went back to being lightheaded and dizzy. When he got to the ER he was afebrile, and has his typical sinus bradycardia 58. Respiration was 19. Blood pressure 164/66. And he was 97% on room air. His EKG had sinus bradycardia with a first-degree AV block. Unchanged from previous EKGs. Chest x-ray does not have acute cardiopulmonary process. His white cell count and hemoglobin were normal for him. Creatinine was 1.3. BUN 56. His exam was noncontributory for any neurological event. They did orthostatics on him and his blood pressure after normal saline bolus showed a supine blood pressure of 163/75. A sitting blood pressure of 144/80, and a standing blood pressure of 110/65. Troponins were 13 and not significant.He shares with me that he had 2 episodes of severe dizziness in the last 3 weeks. The ER provider felt that he should be placed in observation because of his continued near syncope. Patient was agreeable to be evaluated. On review of systems he tells me that he may have lost a little bit of weight. He has been having problems with regurgitation for over a year. When he was in the longterm for rehab, he had 2 swallow evaluations and he passed them. He is able to chew and swallow. And then a food bolus seems to accumulate in his mid chest if not lower chest and then it "bubbles up" and comes back out again in the form of emesis. He has no nausea. No abdominal pain with this. Sometimes it will happen 3 times in 1 week. Sometimes it does not happen at all. It has been going on since approximately March 2024. This last week he had the feeling that it was going to happen so he did not eat any more than 2 bites of his dinner on Friday. There is no change in his bowel habits with this. There is no change in the color of his stool. There is no epigastric pain. And again no nausea. In between episodes he can chew, swallow, and eat normally. No dysphagia.He has slowed down over the last year or 2 from a cardiovascular perspective. He cannot garden as much as he used to. But that is not dramatically different. He denies cough, congestion, change in the color of his phlegm. He continues to have the same urinary frequency and urgency. Wears a diaper at night. He uses a walker when he is outside the house. He still drives a car. Loves to take a drive every day. He is able to feed himself and dress himself. 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 He has chronic pain. His back and his legs always hurt. If he could say there is 1 thing that slows him down it is this.That is unchanged. HOSPITAL COURSE Hospital Course: He responded to 2 L of normal saline given very slowly over 24 hours. He does not feel dizzy or lightheaded when he stands up. I also did an upper GI for his sensation of regurgitation. And he has a distal esophageal stricture. I am discharging him in stable condition but he still needs his medications adjusted. I strongly suggest that he sit down and speak to both his primary care provider and his tram driver about stabilizing him and giving him some suggestions about how to avoid worsening a baseline autonomic dysfunction causing orthostatic hypotension. For now I have just cut his metoprolol in half. During his stay, he was consistently bradycardic. I have cut his metoprolol in half but he may have to come off of it completely. His bradycardia may be contributing to his orthostatic hypotension. Any reflex tachycardia that he would get from standing for too long would be blunted by his metoprolol. He did have a Zio patch in May 2024 where he was primarily sinus and at that time his heart rate was in the 50s. But I would leave it up to his primary care provider and Dr. Panchal to decide on further monitoring such as with a loop recorder or the need for pacemaker. I am also going to avoid giving him his Lasix. But he does need his Lasix for CHF history and leg edema history. Sodium is stable. He will follow-up with nephrology for the hyponatremia workup. I would also recommend that he be referred to gastroenterology for an EGD to get a biopsy of the stricture to make sure is not cancer. And an esophageal dilation. At discharge he is an alert and oriented elderly gentleman. Able to follow commands. Blood pressure is 141/102. Respirations 18. 97% on room air. He is in no pain. Thin and lanky gentleman at 6 foot tall, 82.3 kg. Neck is supple without JVD. Lungs are clear to auscultation and percussion he does not have any increased respiratory effort or respiratory distress. Irregular rate and rhythm with soft systolic ejection murmur at the left lower sternal border. PMI normally placed. The abdomen is soft, nontender with normal bowel sounds. Extremities have no edema. When he stands for me there is no ataxia or dizziness. ALLERGIES Allergies Allergy/AdvReac Type Severity Reaction Status Date / Time ciprofloxacin Allergy Hives Verified 03/22/25 10:02 metronidazole (From Flagyl) Allergy Hives Verified 03/22/25 10:02 MEDICATIONS Ambulatory Orders Medication Instructions Recorded Confirmed albuterol sulfate 90 mcg/actuation 1 - 2 puff inhalati on Q4H PRN 10/23/15 03/22/25 aerosol inhaler (ProAir HFA) Asthma cholecalciferol (vitamin D3) 25 125 mcg ORAL DAILY 03/22/25 mcg (1,000 unit) capsule aspirin 81 mg chewable tablet (St 81 mg PO DAILY 11/1603/22/25 Sergio Aspirin) atorvastatin 80 mg tablet (Lipitor) 80 mg PO DAILY 03/22/25 diclofenac sodium 1 % topical gel 1 applic topical PRN PRN Pain 11/16/20 03/22/25 (Voltaren Arthritis Pain) azelastine 205.5 mcg (0.15 %) 205.5 mcg NS BID 4 03/22/25 nasal spray (Astepro Allergy) mometasone-formoterol HFA 200 1 puff inhalation BID 03/22/25 mcg-5 mcg/actuation aerosol inhaler (Dulera) ckmiubso-ibx-ggiow acid 0.4 1 tab PO DAILY 07/26/24 mg-lycopene 300 mcg-lutein 250 mcg tablet (Centrum Silver) furosemide 20 mg tablet 20 mg PO DAILY PRN swelling or 01/20/25 03/22/25 gain 5 lbs losartan 25 mg tablet 25 mg PO DAILY 01/20/2503/04 magnesium citrate 100 mg tablet 100 mg PO DAILY 03/22/25 mirabegron 50 mg tablet,extended 50 mg PO DAILY 03/22/25 release 24 hr (Myrbetriq) metoprolol succinate 25 mg 12.5 mg (1/2 x 25 mg) PO DA NADYA 03/23/25 03/22/25 tablet,extended release 24 hr Congestive Heart Failure #1 tab PHYSICAL EXAM AT DISCHARGE Vital Signs: Vital Signs x48h Temp Pulse Resp BP Pulse Ox O2 Flow Rate 03/23/25 08:31 36.5 C 64 18 137/67 H 96 0 LABS 03/23/25 04:15 03/23/25 04:15 Discharge Plan Discharge Patient Disposition: Home, Self Care Condition: Good Medically Cleared Date:: 03/23/25 Prescriptions: Continued albuterol sulfate [ProAir HFA] 8.5 GM HFA aerosol inhaler 1 - 2 puff inhalation Q4H PRN (Reason: Asthma) cholecalciferol (vitamin D3) 1,000 UNIT capsule 125 mcg ORAL DAILY atorvastatin [Lipitor] 80 MG tablet 80 mg PO DAILY aspirin [St Sergio Aspirin] 81 MG tablet,chewable 81 mg PO DAILY diclofenac sodium [Voltaren Arthritis Pain] 20 GM gel 1 applic topical PRN PRN (Reason: Pain) Rx Instructions: As needed for L foot arthritis pain azelastine [Astepro Allergy] 205.5 MCG/0.137 ML spray,non-aerosol 205.5 mcg NS BID mirabegron [Myrbetriq] 50 mg tablet extended release 24 hr 50 mg PO DAILY Dulera 200-5 mcg/actuation HFA aerosol inhaler 1 puff inhalation BID Rx Instructions: Take 1 puff by mouth twice a day Centrum Silver 0.4 mg-300 mcg- 250 mcg tablet 1 tab PO DAILY furosemide 20 mg tablet 20 mg PO DAILY PRN (Reason: swelling or gain 5 lbs) magnesium citrate 100 mg tablet 100 mg PO DAILY losartan 25 mg tablet 25 mg PO DAILY Changed metoprolol succinate 25 MG tablet extended release 24 hr 12.5 mg PO DAILY Qty: 1 0RF Diet: Soft Interventions: Belongings Inventory Last Done: 03/22/25 15:19 Discharge Last Done: 03/23/25 14:17 Discharge Checklist - Nursing Last Done: 03/23/25 14:17 Discharge Vital Signs (30 Minutes) Last Done: 03/23/25 14:15 Health Concerns: Unfortunately you have a long history of nearly passing out. You were hospitalized a year ago because of an episode of passing out that is attributed to orthostatic hypotension (an automatic nervous system dysfunction in the elderly), low sodium, and some of your medications. You have had a long complicated history with getting workup and you are seeing excellent specialist for this. Your sodium has been normal for 2 to 3 weeks. However you started taking your Lasix again on a regular basis because you gained 5 pounds. You know that you are supposed to take extra Lasix if you gain weight due to your congestive heart failure history. I think that it was the extra Lasix, superimposed on orthostatic hypotension that caused you to pass out again. You have responded to simple hydration. All we did was give you normal saline very slowly. While here you also describe regurgitating your food. It would happen from out of nowhere. I did an upper GI and found you to have a stricture at the bottom of your esophagus. I have given you a copy of the report. Please see your tram driver in follow-up. He and you need to work on how to calibrate your medications so that you do not have these episodes as much. I do not think we can fix it permanently but adjusting your medications can help. I have taken the liberty of cutting your metoprolol in half. Continue the losartan 25 mg. Please have your primary care provider refer you to gastroenterology for an esophageal dilation of the stricture. They may also have to do a biopsy of the stricture to make sure it is not cancer. It does not look like cancer, and I think is simple scar tissue. Other than changing your metoprolol I have not changed any of your medications. I would stay off of the Lasix for right now until you see cardiology. Print Language: Beninese Patient Instructions: Esophageal Dilation, Treating Dysphagia Follow-up Care: Geri Manuel MD [Primary Care Provider, Family Practice] Vitals documented within 30 minutes of discharge?: Yes
[2025-03-23 13:33] VITALS: O2SAT 97
[2025-03-23 14:19] VITALS: BP 141/102; TEMP 97.3
== END 2025-03-23 14:20 | disposition home or self-care (01) ==
LOC: MS2 09:57 → ED 09:57 → MS2 14:48
PROVIDERS: ADMIT Specialist; ATTEND Specialist